=== PATIENT | female | born 1940 | race Caucasian/White ===

== ENCOUNTER 2018-04-23 11:07 | Observation (INO) ==
[~2018-04-23 11:07] MED LIST: DUONEB 0.5 MG/3 MG ONE
[2018-04-23] MEDS ORDERED: TUSSIONEX PENNKINETIC SUSP PO PRN (11:25)
[2018-04-23] MEDS ORDERED: DUONEB 0.5 MG/3 MG NEB ONE (11:45)
[2018-04-23 11:50] LABS: BASOPHILS % (AUTO) 0.4 % (0.2-1.0); EOSINOPHILS # (AUTO) 0.2 x10^3/uL (0.0-0.2); EOSINOPHILS % (AUTO) 3.2 % (0.9-2.9); HEMATOCRIT 31.5 % (36.0-47.0); HEMOGLOBIN 10.4 g/dL (12.0-16.0); LYMPHOCYTES # (AUTO) 1.8 X10^3/uL (1.3-2.9); LYMPHOCYTES % (AUTO) 31.5 % (21.0-51.0); MEAN CORPUSCULAR HEMOGLOBIN 27.2 pg (27.0-34.0); MEAN CORPUSCULAR HGB CONC 33.1 g/dL (33.0-35.0); MEAN CORPUSCULAR VOLUME 82.1 fL (80.0-100.0); MEAN PLATELET VOLUME 7.8 fL (7.4-11.0); MONOCYTES # (AUTO) 0.8 x10^3/uL (0.3-0.8); MONOCYTES % (AUTO) 13.1 % (0.0-13.0); NEUTROPHILS % (AUTO) 51.8 % (42.0-75.0); PLATELET COUNT 221 X10^3/uL (150.0-450.0); RED BLOOD COUNT 3.83 X10^6/uL (3.5-5.4); RED CELL DISTRIBUTION WIDTH 16.2 % (11.6-16.5); WHITE BLOOD COUNT 5.7 X10^3/uL (3.6-10.0)
[2018-04-23] MEDS ORDERED: PHARMACY CONSULT - DOSE _____ XX SCH (12:00)
[2018-04-23 12:04] LABS: ALANINE AMINOTRANSFERASE 42 Units/L (12-78); ALBUMIN 2.8 g/dL (3.4-5.0); ALKALINE PHOSPHATASE 140 Units/L (46-116); ASPARTATE AMINO TRANSFERASE 71 Units/L (15-37); BLOOD UREA NITROGEN 22 mg/dL (7-18); CALCIUM 8.5 mg/dL (8.5-10.1); CARBON DIOXIDE 28.8 mmol/L (21-32); CHLORIDE 106 mmol/L (98-107); COR CA(FOR HYPOALB) 9.5 mg/dL (8.5-10.1); CREATININE 1.22 mg/dL (0.55-1.02); SODIUM 144 mmol/L (136-145); TOTAL PROTEIN 6.9 g/dL (6.4-8.2); eGFR NON BLACK RACES 45 (>60)
[2018-04-23] MEDS: DUONEB 0.5 MG/3 MG NEB SCH ×3 (12:43→20:25)
--- NOTE | 2018-04-23 12:52 | RAD ---
History: Follow-up of pneumonia cough Study: PA and lateral chest Comparison: April 20 Findings: Previously described airspace disease in the right lower lobe has resolved. There is chronic interstitial change. There is mild cardiomegaly. There is no significant pleural effusion. Impression: Chronic mild cardiomegaly, no current evidence for acute or active cardiopulmonary disease Reported By:
[2018-04-23] MEDS ORDERED: NS 1/2 1000 ML IV 1,000 ML ONE (14:28)
[2018-04-23] MEDS: NS 1/2 1000 ML IV 1,000 ML IV SCH ×2 (14:31→14:32)
[2018-04-23] MEDS: ROBITUSSIN DM PO SCH ×3 (14:32→22:34)
[2018-04-23] MEDS: FORTAZ or TAZICEF VIAL INJ IVP SCH ×2 (14:32→22:33)
[2018-04-23] MEDS: LEVAQUIN PREMIX IV 500 MG 500 MG/100 ML BAG IV SCH (14:32)
[2018-04-23] MEDS ORDERED: POTASSIUM CHL 40 MEQ/NS 0.45% 500 ML IV PRN (19:35)
[2018-04-23] MEDS ORDERED: KLOR-CON PO PRN (19:35)
[2018-04-23] MEDS ORDERED: MICRO K EXTEN CAP 10 MEQ PO PRN (19:35)
[2018-04-23] MEDS ORDERED: POTASSIUM CHLORIDE LIQ 20 MEQ UDC PO PRN (19:35)
[2018-04-23] MEDS ORDERED: MAGNESIUM SULFATE 1 GRAM/100 mL PREMIX 1 GM/100 ML BAG IV PRN (19:35)
[2018-04-23] MEDS ORDERED: K-RIDER 10 MEQ/NS 100 ML 10 MEQ/100 ML BAG IV PRN (19:35)
[2018-04-23] MEDS ORDERED: POTASSIUM CHL 60 MEQ/NS 0.45% 500 ML IV PRN (19:35)
[2018-04-23] MEDS ORDERED: NYSTATIN POWDER TOP PRN (19:48)
[2018-04-23] MEDS: NYSTATIN POWDER TOP SCH (20:48)
[2018-04-23] MEDS: K-DUR TAB 20 MEQ PO PRN (20:48)
[2018-04-24] MEDS: DUONEB 0.5 MG/3 MG NEB SCH ×6 (00:19→21:04)
[2018-04-24] MEDS: NS 1/2 1000 ML IV 1,000 ML IV SCH ×2 (03:22→19:10)
[2018-04-24] MEDS ORDERED: NS 1/2 1000 ML IV 1,000 ML ONE ×2 (03:30→19:07)
[2018-04-24 06:13] LABS: BASOPHILS % (AUTO) 0.4 % (0.2-1.0); EOSINOPHILS # (AUTO) 0.1 x10^3/uL (0.0-0.2); EOSINOPHILS % (AUTO) 1.7 % (0.9-2.9); HEMATOCRIT 28.2 % (36.0-47.0); HEMOGLOBIN 9.4 g/dL (12.0-16.0); LYMPHOCYTES # (AUTO) 1.2 X10^3/uL (1.3-2.9); LYMPHOCYTES % (AUTO) 24.7 % (21.0-51.0); MEAN CORPUSCULAR HEMOGLOBIN 27.4 pg (27.0-34.0); MEAN CORPUSCULAR HGB CONC 33.1 g/dL (33.0-35.0); MEAN CORPUSCULAR VOLUME 82.6 fL (80.0-100.0); MONOCYTES # (AUTO) 0.7 x10^3/uL (0.3-0.8); NEUTROPHILS # (AUTO) 2.9 x10^3/uL (2.2-4.8); NEUTROPHILS % (AUTO) 59.2 % (42.0-75.0); PLATELET COUNT 201 X10^3/uL (150.0-450.0); RED BLOOD COUNT 3.42 X10^6/uL (3.5-5.4); RED CELL DISTRIBUTION WIDTH 15.6 % (11.6-16.5)
[2018-04-24 06:19] LABS: ALANINE AMINOTRANSFERASE 35 Units/L (12-78); ALBUMIN 2.4 g/dL (3.4-5.0); ALKALINE PHOSPHATASE 118 Units/L (46-116); ASPARTATE AMINO TRANSFERASE 53 Units/L (15-37); BLOOD UREA NITROGEN 15 mg/dL (7-18); CALCIUM 8.1 mg/dL (8.5-10.1); CARBON DIOXIDE 26.9 mmol/L (21-32); CHLORIDE 110 mmol/L (98-107); COR CA(FOR HYPOALB) 9.4 mg/dL (8.5-10.1); CREATININE 1.13 mg/dL (0.55-1.02); SODIUM 147 mmol/L (136-145); TOTAL PROTEIN 6.1 g/dL (6.4-8.2); eGFR NON BLACK RACES 49 (>60)
[2018-04-24] MEDS: K-DUR TAB 20 MEQ PO PRN (06:54)
--- NOTE | 2018-04-24 07:16 | RAD ---
HISTORY: Cough, follow-up pneumonia Study: Chest AP portable Comparison: 04/23/2018 Findings: The heart remains enlarged. No congestive heart failure is noted. No definite acute alveolar infiltrates are identified. No pleural effusions are identified. The bony thorax is unremarkable. IMPRESSION: Continued cardiomegaly but without congestive heart failure No definite infiltrates Reported By:
[2018-04-24] MEDS: LEVAQUIN PREMIX IV 500 MG 500 MG/100 ML BAG IV SCH (09:34)
[2018-04-24] MEDS: ROBITUSSIN DM PO SCH ×4 (09:34→21:30)
[2018-04-24] MEDS: FORTAZ or TAZICEF VIAL INJ IVP SCH ×2 (09:34→21:30)
[2018-04-24] MEDS: NYSTATIN POWDER TOP SCH ×2 (09:35→21:39)
[2018-04-24 12:05] LABS: BILIRUBIN,URINE NEGATIVE (NEGATIVE); BLOOD/HEMOGLOBIN,URINE NEGATIVE (NEGATIVE); GLUCOSE, URINE NEGATIVE (NEGATIVE); KETONES,URINE NEGATIVE (NEGATIVE); LEUKOCYTE ESTERASE ,URINE 2+ (NEGATIVE); NITRITES,URINE NEGATIVE (NEGATIVE); PROTEIN,URINE 2+ (NEGATIVE); UROBILINOGEN,URINE NORMAL (NORMAL)
[2018-04-24 12:10] LABS: APPEARANCE,URINE CLEAR (CLEAR); COLOR,URINE YELLOW (YELLOW); RBC,URINE NONE SEEN /HPF (NONE SEEN); SQUAMOUS EPITHELIAL CELL,UR FEW /HPF (NEGATIVE)
[2018-04-24 12:11] LABS: BACTERIA,URINE NEGATIVE /HPF (NEGATIVE); MUCUS,URINE FEW /HPF (NEGATIVE)
[2018-04-24] MEDS ORDERED: PSYLLIUM HUSK 0.52 GM PO SCH (12:15)
--- NOTE | 2018-04-24 13:53 | DR.H&P ---
H&P - History & Physical for Day of: H&P Date: 04/25/18 - Chief Complaint Chief Complaint: FEVER, PRODUCTIVE COUGH, CONGESTION, SHORTNESS OF BREATH - History of Present Illness History of Present Illness: IS A 78 YEAR OLD PATIENT OF OURS WHO IS A DIRECT ADMISSION FOR COMPLAINTS OF FEVER, PRODUCTIVE COUGH, CONGESTION, WHEEZING, AND SHORTNESS OF BREATH. CORRECTION STAFF REPORTED THAT A CHEST XRAY HAD BEEN OBTAINED ON 04/20/18 AND WAS CONSISTENT WITH RIGHT LUNG PNEUMONIA, HOWEVER, RESULTS WERE NOT REPORTED TO THEM UNTIL TODAY. LABS WERE ALSO OBTAINED ON 04/20/2018 AND REVEALED A WBC OF 15.1, POTASSIUM 3.3, BUN 19, CREATININE 1.40. ON ADMISSION TODAY, EXAMINATION REVEALED SCATTERED WHEEZING AND RHONCHI THROUGHOUT. VITALS WERE 98.9-66-18-92%RA-118/79. LABS WERE OBTAINED. ABNORMAL LAB VALUES INCLUDE THE FOLLOWING: HGB 10.4, HCT 31.5, POTASSIUM 3.4, BUN 22, CREATININE 1.22, AST 71, ALK PHOS 140, ALBUMIN 2.8. A CHEST XRAY WAS OBTAINED AND REVEALED: reviously described airspace disease in the right lower lobe has resolved. There is chronic interstitial change. There is mild cardiomegaly. There is no significant pleural effusion. A SPUTUM CULTURE AND BLOOD CULTURES ARE PENDING. SHE WAS STARTED ON LEVAQUIN 500MG IV DAILY, FORTAZ 1GM IV Q12H, RESPIRATORY TX, SUPPLEMENTAL OXYGEN, AND NS AT 75ML/HR. WE WILL FOLLOW UP WITH AM LABS AND CONTINUE TO MONITOR. - Past Medical History Past Medical History: Coronary Artery Disease, Hypertension, Dyslipidemia, Dementia, Depression, Hypothyroidism, GERD, Arthritis - Past Surgical History Surgical History: Ortho Surgery - Social History Does patient currently use any type of tobacco product: No Have you used tobacco products in the last 12 months: No Type of Tobacco Use: None Does any household member use tobacco: No Alcohol Use: None Drug Use: None - Medications Home Medications: propoxyphene [From Darvon] Allergy (Verified 10/31/17 11:09) CONTINUE taking the following medications aripiprazole 2.5 mg PO QDAY 04/23/18 [History] atorvastatin 10 mg PO BID 04/23/18 [History] benzonatate [Tessalon Perles] 200 mg PO TID 04/23/18 [History] docusate sodium [Colace] 100 mg PO BID 04/23/18 [History] donepezil [Aricept] 10 mg PO QHS 04/23/18 [History] pediatric [id number] [Multi-Vitamins with Iron] 1 tab PO DAILY 04/23/18 [History] polyethylene glycol 3350 [Miralax] 17 g PO BID 04/23/18 [History] psyllium husk [Metamucil] 0.52 g PO QHS 04/23/18 [History] risperidone [Risperdal] 0.25 mg PO BID 04/23/18 [History] sucralfate [Carafate] 2 g PO TID 04/23/18 [History] - Review of Systems Constitutional: See HPI, Fever, Weakness Eyes: No Symptoms Reported ENT: No Symptoms Reported Respiratory: See HPI, Cough, Shortness of Breath, SOB with Excertion, Sputum, Wheezing Cardiovascular: No Symptoms Reported Gastrointestinal: No Symptoms Reported Genitourinary: No Symptoms Reported Musculoskeletal: No Symptoms Reported Skin: Rash (REDNESS UNDER BREAST AND ABDOMINAL FOLDS ) Neurological: Weakness - Physical Exam Vital Signs: Temperature 98.8 F Pulse Rate [Bilateral Brachial 74 ] Pulse Rate [Right Brachial] 64 Pulse Rate 50 Respiratory Rate 20 Blood Pressure [Left Arm] 140/61 Blood Pressure [Left Arm] 118/79 Blood Pressure [Right Arm] 140/63 Blood Pressure 131/72 O2 Sat by Pulse Oximetry 93 Oriented: Person Eyes: Normal Ear: Normal Nose: Normal Throat: Normal Respiratory: Rhonchi Throughout, Wheezes Throughout Cardiovascular: Normal. negative: S3, S4, Murmur : Normal Auscultation: Bowel Sounds: Normal Palpation: Normal Tenderness: Normal Skin: Red (REDNESS UNDER BREAST AND ABDOMINAL FOLDS ) Musculoskeletal: Normal Psychiatric: Normal Mood Description: Calm Affect: Normal Speech Pattern: Clear - Assessment/Plan (1) Pneumonia Qualifiers: Pneumonia type: due to unspecified organism Laterality: right Lung location: unspecified part of lung Qualified Code(s): J18.9 - Pneumonia, unspecified organism Status: Acute Plan: IV ANTIBIOTICS, RESPIRATORY TX, SUPPLEMENTAL OXYGEN, CONTINUE TO MONITOR - Allergies Allergies/Adverse Reactions: Allergies Allergy/AdvReac Type Severity Reaction Status Date / Time propoxyphene [From Darvon] Allergy Verified 10/31/17 11:09
[2018-04-24] MEDS: DIFLUCAN 200 MG IV PREMIX* 200 MG/100 ML BAG IV SCH (15:18)
[2018-04-24] MEDS: TESSALON PERLES PO SCH ×2 (15:19→21:30)
[2018-04-24] MEDS: CARAFATE PO SCH ×2 (15:19→21:31)
[2018-04-24] MEDS: SYNTHROID 100 mcg TAB PO SCH (15:20)
[2018-04-24] MEDS: COLACE CAP 100 MG PO SCH ×2 (15:20→21:31)
[2018-04-24] MEDS: NORVASC TAB 10 MG PO SCH (15:20)
[2018-04-24] MEDS: MIRALAX POWDER (1 DOSE 17 G) PO SCH (15:21)
[2018-04-24] MEDS: ABILIFY PO SCH (15:31)
[2018-04-24] MEDS ORDERED: LEXAPRO PO SCH (21:00)
[2018-04-24] MEDS ORDERED: ARICEPT TAB 10 MG PO SCH (21:00)
--- NOTE | 2018-04-24 21:00 | PCM.PROG ---
Progress Note - Progress Note for Day of Date of Exam: 04/24/18 - Subjective Subjective: WAS ADMITTED FOR PNEUMONIA. TODAY, SHE IS ALERT, LYING IN BED ON MORNING ROUNDS. SHE CONTINUES WITH A PRODUCTIVE COUGH. ON EXAMINATION, HEART IS REGULAR IN RATE AND RHYTHM. BILATERAL LUNGS ARE NOTED WITH SCATTERED WHEEZING AND RHONCHI THROUGHOUT. ABDOMEN IS ROUND, SOFT, AND NON-TENDER WITH NORMAL BOWEL SOUNDS NOTED IN ALL QUADRANTS. SHE IS NOTED WITH REDNESS UNDER BREAST AND ABDOMINAL FOLDS. HER VITALS THIS MORNING ARE 98.7-64-18-96%-130/60. LABS WERE OBTAINED. ABNORMAL LAB VALUES INCLUDE THE FOLLOWING: RBC 3.42, HGB 9.4, HCT 28.2, SODIUM 147, CHLORIDE 110, CREATININE 1.13, CALCIUM 8.1, AST 53, ALK PHOS 118, TOTAL PROTEIN 6.1, ALBUMIN 2.4. URINALYSIS REVEALED WBC 3-5, LEUKOCYTES 2+, BACTERIA NEGATIVE. A CHEST XRAY WAS OBTAINED TODAY AND REVEALED: Continued cardiomegaly but without congestive heart failure. No definite infiltrates. SHE IS CURRENTLY RECEIVING IV FORTAZ AND LEVAQUIN. TODAY, WE WILL ADD DIFLUCAN 200MG IV DAILY. OTHERWISE, WE WILL CONTINUE WITH CURRENT PLAN OF CARE. WE PLAN TO FOLLOW UP WITH AM LABS AND CONTINUE TO MONITOR. - Past Medical Family Social History Past Med/Fam/Surg Hx: No changes since H&P Allergies: Allergies propoxyphene [From Darvon] Allergy (Verified 10/31/17 11:09) - Review of Systems ROS: No change since H&P - Vital Signs and I&O's Vital Signs: Temperature 99.3 F Pulse Rate [Bilateral Brachial 74 ] Pulse Rate [Right Brachial] 85 Pulse Rate 54 Respiratory Rate 20 Blood Pressure [Left Arm] 110/53 Blood Pressure [Left Arm] 118/79 Blood Pressure [Right Arm] 140/63 Blood Pressure 131/72 O2 Sat by Pulse Oximetry 92 Intake and Output: Intake & Output 04/22/18 04/23/18 04/24/18 04/25/18 11:59 11:59 11:59 11:59 Intake Total 1660 / 1660 700 / 700 Balance 1660 / 1660 700 / 700 - Physical Exam Oriented: Person Eyes: Normal Ear: Normal Nose: Normal Throat: Normal Respiratory: Generalized, Wheezes, Rhonchi Cardiovascular: Normal. negative: S3, S4, Murmur : Normal Auscultation: Bowel Sounds: Normal Palpation: Normal Tenderness: Normal Skin: Red (REDNESS UNDER BREAST AND ABDOMINAL FOLDS ) Musculoskeletal: Normal Psychiatric: Normal Mood Description: Calm Affect: Normal Speech Pattern: Clear - Laboratory and Diagnostics Result Diagrams: 04/24/18 05:14 04/24/18 05:14 Labs: 04/23/18 12:45 Sputum - Expectorated Sputum Sputum Culture - Preliminary 04/23/18 12:45 Sputum - Expectorated Sputum - Final Laboratory WBC 5.0 X10^3/uL (3.6-10.0) 04/24/18 05:14 RBC 3.42 X10^6/uL (3.5-5.4) L 04/24/18 05:14 Hgb 9.4 g/dL (12.0-16.0) L 04/24/18 05:14 Hct 28.2 % (36.0-47.0) L 04/24/18 05:14 MCV 82.6 fL (80.0-100.0) 04/24/18 05:14 MCH 27.4 pg (27.0-34.0) 04/24/18 05:14 MCHC 33.1 g/dL (33.0-35.0) 04/24/18 05:14 RDW 15.6 % (11.6-16.5) 04/24/18 05:14 Plt Count 201 X10^3/uL (150.0-450.0) 04/24/18 05:14 MPV 8.0 fL (7.4-11.0) 04/24/18 05:14 Neut % (Auto) 59.2 % (42.0-75.0) 04/24/18 05:14 Lymph % (Auto) 24.7 % (21.0-51.0) 04/24/18 05:14 [place] % (Auto) 14.0 % (0.0-13.0) H 04/24/18 05:14 Eos % (Auto) 1.7 % (0.9-2.9) 04/24/18 05:14 Baso % (Auto) 0.4 % (0.2-1.0) 04/24/18 05:14 Neut # (Auto) 2.9 x10^3/uL (2.2-4.8) 04/24/18 05:14 Lymph # (Auto) 1.2 X10^3/uL (1.3-2.9) L 04/24/18 05:14 [place] # (Auto) 0.7 x10^3/uL (0.3-0.8) 04/24/18 05:14 Eos # (Auto) 0.1 x10^3/uL (0.0-0.2) 04/24/18 05:14 Baso # (Auto) 0.0 X10^3/uL (0.0-0.1) 04/24/18 05:14 Absolute Nucleated RBC 0.1 /100WBC 04/24/18 05:14 Sodium 147 mmol/L (136-145) H 04/24/18 05:14 Corrected Sodium TNP 04/24/18 05:14 Potassium 3.5 mmol/L (3.5-5.1) 04/24/18 05:14 Chloride 110 mmol/L (98-107) H 04/24/18 05:14 Carbon Dioxide 26.9 mmol/L (21-32) 04/24/18 05:14 BUN 15 mg/dL (7-18) 04/24/18 05:14 Creatinine 1.13 mg/dL (0.55-1.02) H 04/24/18 05:14 Est GFR (MDRD) Af Amer 60 (>60) 04/24/18 05:14 Est GFR (MDRD) Non-Af 49 (>60) L 04/24/18 05:14 Glucose 96 mg/dL (65-99) 04/24/18 05:14 Calcium 8.1 mg/dL (8.5-10.1) L 04/24/18 05:14 Corrected Calcium 9.4 mg/dL (8.5-10.1) 04/24/18 05:14 Magnesium 2.1 mg/dL (1.7-2.9) 04/23/18 11:31 Total Bilirubin 0.70 mg/dL (0.2-1.0) 04/24/18 05:14 AST 53 Units/L (15-37) H 04/24/18 05:14 ALT 35 Units/L (12-78) 04/24/18 05:14 Alkaline Phosphatase 118 Units/L (46-116) H 04/24/18 05:14 Total Protein 6.1 g/dL (6.4-8.2) L 04/24/18 05:14 Albumin 2.4 g/dL (3.4-5.0) L 04/24/18 05:14 Globulin 3.7 g/dL (2.5-4.5) 04/24/18 05:14 Albumin/Globulin Ratio 0.6 Ratio (1.1-2.1) L 04/24/18 05:14 Specimen Type Clean catch urine 04/24/18 11:50 Urine Color Yellow (YELLOW) 04/24/18 11:50 Urine Appearance Clear (CLEAR) 04/24/18 11:50 Urine pH 6.0 (5.0 - 8.0) 04/24/18 11:50 Ur Specific [place] 1.020 (1.000-1.030) 04/24/18 11:50 Urine Protein 2+ (NEGATIVE) 04/24/18 11:50 Urine Glucose (UA) Negative (NEGATIVE) 04/24/18 11:50 Urine Ketones Negative (NEGATIVE) 04/24/18 11:50 Urine Occult Blood Negative (NEGATIVE) 04/24/18 11:50 Urine Nitrite Negative (NEGATIVE) 04/24/18 11:50 Urine Bilirubin Negative (NEGATIVE) 04/24/18 11:50 Urine Urobilinogen Normal (NORMAL) 04/24/18 11:50 Ur Leukocyte Esterase 2+ (NEGATIVE) 04/24/18 11:50 Urine RBC None seen /HPF (NONE SEEN) 04/24/18 11:50 Urine WBC 3-5 /HPF (NONE SEEN) 04/24/18 11:50 Ur Squamous Epith Cells Few /HPF (NEGATIVE) 04/24/18 11:50 Urine Bacteria Negative /HPF (NEGATIVE) 04/24/18 11:50 Urine Mucus Few /HPF (NEGATIVE) 04/24/18 11:50 Ur Culture Indicated? No/not indicated 04/24/18 11:50 - Plan (1) Pneumonia Status: Acute Qualifiers: Pneumonia type: due to unspecified organism Laterality: right Lung location: unspecified part of lung Qualified Code(s): J18.9 - Pneumonia, unspecified organism Plan: IV ANTIBIOTICS, RESPIRATORY TX, SUPPLEMENTAL OXYGEN, CONTINUE TO MONITOR
[2018-04-24] MEDS ORDERED: LEXAPRO ONE (21:12)
[2018-04-24] MEDS: ZANTAC PO SCH (21:31)
[2018-04-24] MEDS: LIPITOR TAB 10 MG PO SCH (21:31)
[2018-04-24] MEDS: VASOTEC TAB 20 MG PO SCH (21:32)
[2018-04-25] MEDS: DUONEB 0.5 MG/3 MG NEB SCH ×4 (01:22→12:11)
[2018-04-25] MEDS ORDERED: NS 1/2 1000 ML IV 1,000 ML ONE (04:54)
[2018-04-25] MEDS: NS 1/2 1000 ML IV 1,000 ML IV SCH (05:07)
[2018-04-25] MEDS: CARAFATE PO SCH (05:17)
[2018-04-25] MEDS: TESSALON PERLES PO SCH (05:17)
[2018-04-25 06:08] LABS: BASOPHILS % (AUTO) 0.6 % (0.2-1.0); EOSINOPHILS # (AUTO) 0.2 x10^3/uL (0.0-0.2); EOSINOPHILS % (AUTO) 4.4 % (0.9-2.9); HEMATOCRIT 30.6 % (36.0-47.0); HEMOGLOBIN 10.2 g/dL (12.0-16.0); LYMPHOCYTES # (AUTO) 1.6 X10^3/uL (1.3-2.9); LYMPHOCYTES % (AUTO) 29.9 % (21.0-51.0); MEAN CORPUSCULAR HEMOGLOBIN 27.5 pg (27.0-34.0); MEAN CORPUSCULAR HGB CONC 33.3 g/dL (33.0-35.0); MEAN CORPUSCULAR VOLUME 82.6 fL (80.0-100.0); MEAN PLATELET VOLUME 7.8 fL (7.4-11.0); MONOCYTES # (AUTO) 0.7 x10^3/uL (0.3-0.8); MONOCYTES % (AUTO) 12.8 % (0.0-13.0); NEUTROPHILS # (AUTO) 2.8 x10^3/uL (2.2-4.8); NEUTROPHILS % (AUTO) 52.3 % (42.0-75.0); PLATELET COUNT 231 X10^3/uL (150.0-450.0); RED CELL DISTRIBUTION WIDTH 16.1 % (11.6-16.5); WHITE BLOOD COUNT 5.3 X10^3/uL (3.6-10.0)
--- NOTE | 2018-04-25 06:18 | RAD ---
HISTORY: Cough, follow-up pneumonia Study: Chest AP portable Comparison: 04/24/2018 Findings: The heart is enlarged. No congestive heart failure is noted. No acute alveolar infiltrates or pleural effusions are identified. The bony thorax is unremarkable. IMPRESSION: Continued cardiomegaly without congestive heart failure No definite infiltrates identified Reported By:
[2018-04-25 06:33] LABS: ALANINE AMINOTRANSFERASE 33 Units/L (12-78); ALBUMIN 2.7 g/dL (3.4-5.0); ALKALINE PHOSPHATASE 131 Units/L (46-116); ASPARTATE AMINO TRANSFERASE 45 Units/L (15-37); BLOOD UREA NITROGEN 13 mg/dL (7-18); CALCIUM 8.4 mg/dL (8.5-10.1); CARBON DIOXIDE 24.9 mmol/L (21-32); CHLORIDE 109 mmol/L (98-107); COR CA(FOR HYPOALB) 9.4 mg/dL (8.5-10.1); CREATININE 1.09 mg/dL (0.55-1.02); SODIUM 144 mmol/L (136-145); TOTAL PROTEIN 6.6 g/dL (6.4-8.2); eGFR NON BLACK RACES 52 (>60)
[2018-04-25] MEDS ORDERED: TAB-A-VITE PO SCH (09:00)
[2018-04-25] MEDS: ABILIFY PO SCH (09:40)
[2018-04-25] MEDS: ROBITUSSIN DM PO SCH (09:41)
[2018-04-25] MEDS: COLACE CAP 100 MG PO SCH (09:41)
[2018-04-25] MEDS: VASOTEC TAB 20 MG PO SCH (09:41)
[2018-04-25] MEDS: LIPITOR TAB 10 MG PO SCH (09:41)
[2018-04-25] MEDS: ZANTAC PO SCH (09:42)
[2018-04-25] MEDS: NORVASC TAB 10 MG PO SCH (09:42)
[2018-04-25] MEDS: SYNTHROID 100 mcg TAB PO SCH (09:42)
[2018-04-25] MEDS: MIRALAX POWDER (1 DOSE 17 G) PO SCH (09:43)
[2018-04-25] MEDS: LEVAQUIN PREMIX IV 500 MG 500 MG/100 ML BAG IV SCH (09:44)
[2018-04-25] MEDS: FORTAZ or TAZICEF VIAL INJ IVP SCH (09:48)
[2018-04-25] MEDS: NYSTATIN POWDER TOP SCH (09:59)
[2018-04-25] MEDS: DIFLUCAN 200 MG IV PREMIX* 200 MG/100 ML BAG IV SCH (11:36)
[2018-04-25 13:52] VITALS: BP 157/66
== END 2018-04-25 13:31 ==
LOC: OBS → MED/SURG 11:07
PROVIDERS: ADMIT Internal Medicine; ATTEND Internal Medicine
DX: I51.7 Cardiomegaly; J18.8 Other pneumonia, unspecified organism; R06.02 Shortness of breath; R26.89 Other abnormalities of gait and mobility; R50.9 Fever, unspecified
CPT/HCPCS: 36415; 71010; 71020; 71045; 71046; 80053; 81001; 83735; 85025; 87040; 87070; 87086; 87205; 92610; 94640; 94669; 94760; 96367; 96374; 97162; 97166; 97535; A4222; G0378; J0400; J0713; J1450; J1956; J7620

== ENCOUNTER 2018-09-11 18:16 | Inpatient (IN) ==
[2018-09-11] MEDS ORDERED: TUSSIONEX PENNKINETIC SUSP PO PRN (20:46)
[2018-09-11] MEDS ORDERED: FORTAZ or TAZICEF VIAL INJ IVP SCH (20:46)
[2018-09-11] MEDS ORDERED: LEVAQUIN PREMIX IV 500 MG 500 MG/100 ML BAG IV ONE (20:46)
[2018-09-11] MEDS: DUONEB 0.5 MG/3 MG NEB SCH (21:10)
[2018-09-11 21:12] LABS: BASOPHILS % (AUTO) 0.4 % (0.2-1.0); EOSINOPHILS # (AUTO) 0.2 x10^3/uL (0.0-0.2); EOSINOPHILS % (AUTO) 3.2 % (0.9-2.9); HEMATOCRIT 34.1 % (36.0-47.0); HEMOGLOBIN 11.3 g/dL (12.0-16.0); LYMPHOCYTES # (AUTO) 1.4 X10^3/uL (1.3-2.9); LYMPHOCYTES % (AUTO) 27.9 % (21.0-51.0); MEAN CORPUSCULAR HEMOGLOBIN 25.9 pg (27.0-34.0); MEAN CORPUSCULAR HGB CONC 33.2 g/dL (33.0-35.0); MEAN CORPUSCULAR VOLUME 78.3 fL (80.0-100.0); MEAN PLATELET VOLUME 7.6 fL (7.4-11.0); MONOCYTES # (AUTO) 0.9 x10^3/uL (0.3-0.8); MONOCYTES % (AUTO) 17.6 % (0.0-13.0); NEUTROPHILS # (AUTO) 2.6 x10^3/uL (2.2-4.8); NEUTROPHILS % (AUTO) 50.9 % (42.0-75.0); PLATELET COUNT 167 X10^3/uL (150.0-450.0); RED BLOOD COUNT 4.36 X10^6/uL (3.5-5.4); WHITE BLOOD COUNT 5.2 X10^3/uL (3.6-10.0)
[2018-09-11 21:16] LABS: PLATELET MORPHOLOGY COMMENT NORMAL (NORMAL)
[2018-09-11 21:17] LABS: HYPOCHROMASIA SLIGHT
[2018-09-11 21:28] LABS: ALANINE AMINOTRANSFERASE 68 Units/L (12-78); ALBUMIN 2.7 g/dL (3.4-5.0); ALKALINE PHOSPHATASE 218 Units/L (46-116); ASPARTATE AMINO TRANSFERASE 34 Units/L (15-37); BLOOD UREA NITROGEN 38 mg/dL (7-18); CALCIUM 8.1 mg/dL (8.5-10.1); CARBON DIOXIDE 27.8 mmol/L (21-32); CHLORIDE 108 mmol/L (98-107); COR CA(FOR HYPOALB) 9.1 mg/dL (8.5-10.1); CREATININE 1.38 mg/dL (0.55-1.02); SODIUM 145 mmol/L (136-145); TOTAL PROTEIN 6.9 g/dL (6.4-8.2); eGFR NON BLACK RACES 39 (>60)
[2018-09-11] MEDS ORDERED: NS 1/2 1000 ML IV 1,000 ML ONE (21:29)
[2018-09-11] MEDS: NS 1/2 1000 ML IV 1,000 ML IV SCH (21:32)
[2018-09-11] MEDS: ROBITUSSIN DM PO SCH (21:32)
[2018-09-11] MEDS: VSL#3 PO SCH (21:32)
[2018-09-11] MEDS ORDERED: MAGNESIUM SULFATE 1 GRAM/100 mL PREMIX 1 GM/100 ML BAG IV PRN (22:18)
[2018-09-11] MEDS ORDERED: K-RIDER 10 MEQ/NS 100 ML 10 MEQ/100 ML BAG IV PRN (22:18)
[2018-09-11] MEDS ORDERED: MICRO K EXTEN CAP 10 MEQ PO PRN (22:18)
[2018-09-11] MEDS ORDERED: POTASSIUM CHL 40 MEQ/NS 0.45% 500 ML IV PRN (22:18)
[2018-09-11] MEDS ORDERED: POTASSIUM CHL 60 MEQ/NS 0.45% 500 ML IV PRN (22:18)
[2018-09-11] MEDS ORDERED: POTASSIUM CHLORIDE LIQ 20 MEQ UDC PO PRN (22:18)
[2018-09-11] MEDS ORDERED: KLOR-CON PO PRN (22:18)
[2018-09-11] MEDS: K-DUR TAB 20 MEQ PO PRN (22:50)
[2018-09-12] MEDS: DUONEB 0.5 MG/3 MG NEB SCH ×6 (01:00→20:30)
[2018-09-12] MEDS ORDERED: NS 1/2 1000 ML IV 1,000 ML ONE ×2 (04:40→20:45)
[2018-09-12] MEDS: NS 1/2 1000 ML IV 1,000 ML IV SCH ×2 (05:10→22:04)
[2018-09-12 05:27] LABS: BASOPHILS % (AUTO) 0.3 % (0.2-1.0); EOSINOPHILS # (AUTO) 0.1 x10^3/uL (0.0-0.2); EOSINOPHILS % (AUTO) 3.3 % (0.9-2.9); HEMATOCRIT 33.4 % (36.0-47.0); LYMPHOCYTES # (AUTO) 1.1 X10^3/uL (1.3-2.9); MEAN CORPUSCULAR HEMOGLOBIN 25.9 pg (27.0-34.0); MEAN CORPUSCULAR HGB CONC 33.1 g/dL (33.0-35.0); MEAN CORPUSCULAR VOLUME 78.2 fL (80.0-100.0); MEAN PLATELET VOLUME 8.2 fL (7.4-11.0); MONOCYTES # (AUTO) 0.6 x10^3/uL (0.3-0.8); MONOCYTES % (AUTO) 17.1 % (0.0-13.0); NEUTROPHILS # (AUTO) 1.9 x10^3/uL (2.2-4.8); NEUTROPHILS % (AUTO) 50.3 % (42.0-75.0); PLATELET COUNT 148 X10^3/uL (150.0-450.0); RED BLOOD COUNT 4.26 X10^6/uL (3.5-5.4); RED CELL DISTRIBUTION WIDTH 19.8 % (11.6-16.5); WHITE BLOOD COUNT 3.8 X10^3/uL (3.6-10.0)
[2018-09-12 05:33] LABS: ALANINE AMINOTRANSFERASE 60 Units/L (12-78); ALBUMIN 2.6 g/dL (3.4-5.0); ALKALINE PHOSPHATASE 199 Units/L (46-116); ASPARTATE AMINO TRANSFERASE 32 Units/L (15-37); BLOOD UREA NITROGEN 29 mg/dL (7-18); CALCIUM 7.8 mg/dL (8.5-10.1); CARBON DIOXIDE 28.1 mmol/L (21-32); CHLORIDE 109 mmol/L (98-107); COR CA(FOR HYPOALB) 8.9 mg/dL (8.5-10.1); CREATININE 1.11 mg/dL (0.55-1.02); SODIUM 145 mmol/L (136-145); TOTAL PROTEIN 6.7 g/dL (6.4-8.2); eGFR NON BLACK RACES 51 (>60)
[2018-09-12 05:56] LABS: ANISOCYTOSIS SLIGHT; HYPOCHROMASIA SLIGHT; PLATELET MORPHOLOGY COMMENT NORMAL (NORMAL)
--- NOTE | 2018-09-12 06:13 | RAD ---
HISTORY: Follow-up pneumonia Study: Chest AP portable Comparison: 09/11/2018 Findings: The heart is enlarged. No congestive heart failure is noted. The lungs are well inflated. No acute alveolar infiltrates are identified. No pleural effusions are noted. The bony thorax is unremarkable. IMPRESSION: Continued cardiomegaly without congestive heart failure Lungs now clear Reported By:
[2018-09-12] MEDS ORDERED: KENALOG CREAM ONE (08:45)
[2018-09-12] MEDS: VSL#3 PO SCH (08:47)
[2018-09-12] MEDS: FORTAZ or TAZICEF VIAL INJ IVP SCH ×2 (08:47→22:01)
[2018-09-12] MEDS: ROBITUSSIN DM PO SCH ×4 (08:47→21:58)
[2018-09-12] MEDS ORDERED: PHARMACY CONSULT - DOSE _____ XX SCH (09:00)
[2018-09-12] MEDS ORDERED: NYSTATIN POWDER ONE (11:26)
[2018-09-12] MEDS: NYSTATIN POWDER TOP SCH ×2 (11:40→22:02)
[2018-09-12 13:02] VITALS: BMI 40.4
[2018-09-12] MEDS: LOVENOX INJ 40 MG SYR SC SCH (14:37)
[2018-09-12] MEDS ORDERED: LEVOTHYROXINE SODIUM 125 MCG PO SCH (20:15)
[2018-09-12] MEDS ORDERED: LEXAPRO ONE (20:44)
[2018-09-12] MEDS ORDERED: RANITIDINE HCL 150 MG PO SCH (21:00)
[2018-09-12] MEDS ORDERED: PATIENT'S HOME MEDICATION (Escitalopram Oxalate [Lexapro] 20 MG) PO SCH (21:00)
[2018-09-12] MEDS ORDERED: KENALOG CREAM TOP SCH (21:00)
[2018-09-12] MEDS ORDERED: ENALAPRIL MALEATE 20 MG PO SCH (21:00)
[2018-09-12] MEDS: LIPITOR TAB 10 MG PO SCH (21:56)
[2018-09-12] MEDS: LEXAPRO PO SCH (21:57)
[2018-09-12] MEDS: COLACE CAP 100 MG PO SCH (21:57)
[2018-09-12] MEDS: ARICEPT TAB 10 MG PO SCH (21:58)
[2018-09-12] MEDS: LASIX PO SCH (21:58)
[2018-09-12] MEDS: ZANTAC PO SCH (21:58)
[2018-09-12] MEDS: CARAFATE PO SCH (21:59)
[2018-09-12] MEDS: VASOTEC TAB 20 MG PO SCH (22:00)
[2018-09-12] MEDS: LEVAQUIN PREMIX IV 500 MG 500 MG/100 ML BAG IV SCH (22:09)
[2018-09-12] MEDS: ABILIFY PO SCH (23:42)
[2018-09-13] MEDS: DUONEB 0.5 MG/3 MG NEB SCH ×6 (00:59→20:35)
[2018-09-13 05:15] LABS: BASOPHILS % (AUTO) 0.4 % (0.2-1.0); EOSINOPHILS # (AUTO) 0.1 x10^3/uL (0.0-0.2); EOSINOPHILS % (AUTO) 3.5 % (0.9-2.9); HEMATOCRIT 32.9 % (36.0-47.0); HEMOGLOBIN 10.8 g/dL (12.0-16.0); LYMPHOCYTES # (AUTO) 1.1 X10^3/uL (1.3-2.9); LYMPHOCYTES % (AUTO) 36.9 % (21.0-51.0); MEAN CORPUSCULAR HEMOGLOBIN 25.8 pg (27.0-34.0); MEAN CORPUSCULAR HGB CONC 32.8 g/dL (33.0-35.0); MEAN CORPUSCULAR VOLUME 78.6 fL (80.0-100.0); MEAN PLATELET VOLUME 7.9 fL (7.4-11.0); MONOCYTES # (AUTO) 0.5 x10^3/uL (0.3-0.8); MONOCYTES % (AUTO) 17.4 % (0.0-13.0); NEUTROPHILS # (AUTO) 1.3 x10^3/uL (2.2-4.8); NEUTROPHILS % (AUTO) 41.8 % (42.0-75.0); PLATELET COUNT 144 X10^3/uL (150.0-450.0); RED BLOOD COUNT 4.19 X10^6/uL (3.5-5.4); RED CELL DISTRIBUTION WIDTH 19.6 % (11.6-16.5)
[2018-09-13 05:27] LABS: ANISOCYTOSIS SLIGHT; HYPOCHROMASIA SLIGHT; PLATELET MORPHOLOGY COMMENT NORMAL (NORMAL)
[2018-09-13 05:35] LABS: ALANINE AMINOTRANSFERASE 53 Units/L (12-78); ALBUMIN 2.6 g/dL (3.4-5.0); ALKALINE PHOSPHATASE 186 Units/L (46-116); ASPARTATE AMINO TRANSFERASE 32 Units/L (15-37); BLOOD UREA NITROGEN 16 mg/dL (7-18); CALCIUM 7.8 mg/dL (8.5-10.1); CARBON DIOXIDE 27.2 mmol/L (21-32); CHLORIDE 111 mmol/L (98-107); COR CA(FOR HYPOALB) 8.9 mg/dL (8.5-10.1); CREATININE 0.97 mg/dL (0.55-1.02); SODIUM 146 mmol/L (136-145); TOTAL PROTEIN 6.6 g/dL (6.4-8.2); eGFR NON BLACK RACES 59 (>60)
[2018-09-13] MEDS: CARAFATE PO SCH ×3 (05:43→22:02)
[2018-09-13] MEDS: K-DUR TAB 20 MEQ PO PRN (05:46)
--- NOTE | 2018-09-13 06:58 | RAD ---
HISTORY: Shortness of breath Study: Chest AP portable Comparison: 09/12/2018 Findings: The heart remains enlarged. No congestive heart failure is noted. No acute alveolar infiltrates or pleural effusions are identified. The bony thorax is unremarkable. IMPRESSION: Continued cardiomegaly without congestive heart failure No infiltrates Reported By:
[2018-09-13] MEDS ORDERED: [UNRECOGNIZED DRUG - MIXTURE] PO SCH (09:00)
[2018-09-13] MEDS ORDERED: AMLODIPINE BESYLATE 10 MG PO SCH (09:00)
[2018-09-13] MEDS: NORVASC TAB 10 MG PO SCH (09:44)
[2018-09-13] MEDS: FORTAZ or TAZICEF VIAL INJ IVP SCH ×2 (09:44→22:04)
[2018-09-13] MEDS: LEVAQUIN PREMIX IV 500 MG 500 MG/100 ML BAG IV SCH (09:44)
[2018-09-13] MEDS: COLACE CAP 100 MG PO SCH ×2 (09:45→22:02)
[2018-09-13] MEDS: LASIX PO SCH ×2 (09:45→22:02)
[2018-09-13] MEDS: TAB-A-VITE PO SCH (09:45)
[2018-09-13] MEDS: VSL#3 PO SCH (09:45)
[2018-09-13] MEDS: ZANTAC PO SCH ×2 (09:45→22:02)
[2018-09-13] MEDS: ROBITUSSIN DM PO SCH ×4 (09:47→22:04)
[2018-09-13] MEDS: NYSTATIN POWDER TOP SCH ×2 (09:47→22:04)
[2018-09-13] MEDS: VASOTEC TAB 20 MG PO SCH ×2 (09:47→22:03)
[2018-09-13] MEDS: LOVENOX INJ 40 MG SYR SC SCH (09:49)
[2018-09-13] MEDS: ABILIFY PO SCH ×3 (09:53→22:00)
[2018-09-13] MEDS: SYNTHROID 125 mcg TAB PO SCH (09:53)
[2018-09-13] MEDS: NS 1/2 1000 ML IV 1,000 ML IV SCH ×4 (09:53→22:05)
[2018-09-13] MEDS: EUCERIN TOP PRN ×2 (13:00→22:09)
--- NOTE | 2018-09-13 18:43 | DR.H&P ---
H&P - History & Physical for Day of: H&P Date: 09/11/18 - Chief Complaint Chief Complaint: COUGH, FEVER, SOB - History of Present Illness History of Present Illness: IS A 78 YEAR OLD PATIENT OF OURS WHO IS A RESIDENT OF [facility]. SHE PRESENTED TO THE HOSPITAL A DIRECT ADMISSION WITH ASSISTED STAFF REPORTING THAT PATIENT HAS HAD COUGH AND FEVER SINCE ONE DAY PRIOR. PATIENT REPORTS, I DONT FEEL GOOD, MY HEAD HURTS. MEDICAL HISTORY INCLUDES DEMENTIA, ALZHEIMERS, HTN, GERD, MUSCLE WEAKNESS, HYPOTHYROIDISM, AND DEPRESSION. ON ARRIVAL, VITALS WERE 99.5-47-18-92%-133/60. LABS WERE OBTAINED. ABNORMAL LAB VALUES INCLUDE THE FOLLOWING: HGB 11.3, HCT 34.1, CHLORIDE 108, BUN 38, CREATININE 1.38, CALCIUM 8.1, ALK PHOS 218, ALBUMIN 2.7. BLOOD AND SPUTUM CULTURES PENDING. A CHEST XRAY WAS OBTAINED AND REVEALED: Continued cardiomegaly without congestive heart failure. Lungs now clear. SHE WAS STARTED ON NS AT KVO, IV FORTAZ, IV LEVAQUIN, RESPIRATORY TREATMENTS, SUPPEMENTAL OXYGEN, AND THE POTASSIUM PROTOCOL. WE WILL FOLLOW UP WITH AM LABS AND CHEST XRAY AND CONTINUE TO MONITOR. - Past Medical History Past Medical History: Coronary Artery Disease, Hypertension, Dyslipidemia, Dementia, Depression, Hypothyroidism, GERD, Arthritis - Past Surgical History Surgical History: Ortho Surgery - Social History Does patient currently use any type of tobacco product: No Have you used tobacco products in the last 12 months: No Type of Tobacco Use: None Does any household member use tobacco: No Alcohol Use: None Drug Use: Prescription Drugs - Medications Home Medications: propoxyphene [From Darvon] Allergy (Verified 07/10/18 20:41) CONTINUE taking the following medications RX: aripiprazole 5 mg PO QHS 09/11/18 [History] RX: miscellaneous medical supply 09/11/18 [History] RX: nystatin 1 applic TOPICAL BID 09/11/18 [History] RX: triamcinolone acetonide 1 applic TOPICAL BID 09/11/18 [History] - Review of Systems Constitutional: Fever, Weakness, Malaise Eyes: No Symptoms Reported ENT: No Symptoms Reported Respiratory: See HPI, Cough, Shortness of Breath Cardiovascular: No Symptoms Reported Gastrointestinal: No Symptoms Reported Genitourinary: No Symptoms Reported Musculoskeletal: No Symptoms Reported Skin: No Symptoms Reported Neurological: Weakness - Physical Exam Vital Signs: Temperature 98.9 F Pulse Rate [Brachial] 57 Pulse Rate 48 Respiratory Rate 18 Blood Pressure [Left Arm] 150/67 Blood Pressure [Left Arm] 118/79 Blood Pressure [Right Arm] 125/56 Blood Pressure 150/67 O2 Sat by Pulse Oximetry 97 Oriented: Not Oriented Eyes: Normal Ear: Normal Nose: Normal Throat: Normal Respiratory: Wheezes Throughout Cardiovascular: Normal : Normal Auscultation: Bowel Sounds: Normal Palpation: Normal Tenderness: Normal Skin: Normal Musculoskeletal: Normal Psychiatric: Normal Mood Description: Calm Affect: Normal Speech Pattern: Inappropriate - Assessment/Plan (1) Bronchopneumonia Status: Acute Plan: IV FLUIDS, IV ANTIBIOTICS, RESPIRATORY TREATMENTS, SUPPLEMENTAL OXYGEN, CONTINUE TO MONITOR - Allergies Allergies/Adverse Reactions: Allergies Allergy/AdvReac Type Severity Reaction Status Date / Time propoxyphene [From Darvon] Allergy Verified 07/10/18 20:41
[2018-09-13] MEDS ORDERED: LEXAPRO ONE (21:06)
[2018-09-13] MEDS ORDERED: NS 1/2 1000 ML IV 1,000 ML ONE (21:09)
[2018-09-13] MEDS: LIPITOR TAB 10 MG PO SCH (22:00)
[2018-09-13] MEDS: LEXAPRO PO SCH (22:00)
[2018-09-13] MEDS: ARICEPT TAB 10 MG PO SCH (22:01)
[2018-09-14] MEDS: DUONEB 0.5 MG/3 MG NEB SCH ×6 (01:04→21:10)
[2018-09-14] MEDS: CARAFATE PO SCH ×3 (05:36→22:26)
[2018-09-14 05:43] LABS: ALANINE AMINOTRANSFERASE 47 Units/L (12-78); ALBUMIN 2.8 g/dL (3.4-5.0); ALKALINE PHOSPHATASE 192 Units/L (46-116); ASPARTATE AMINO TRANSFERASE 28 Units/L (15-37); BASOPHILS % (AUTO) 0.4 % (0.2-1.0); BLOOD UREA NITROGEN 14 mg/dL (7-18); CALCIUM 8.1 mg/dL (8.5-10.1); CHLORIDE 107 mmol/L (98-107); COR CA(FOR HYPOALB) 9.1 mg/dL (8.5-10.1); CREATININE 0.97 mg/dL (0.55-1.02); EOSINOPHILS # (AUTO) 0.1 x10^3/uL (0.0-0.2); HEMATOCRIT 33.1 % (36.0-47.0); LYMPHOCYTES # (AUTO) 1.2 X10^3/uL (1.3-2.9); LYMPHOCYTES % (AUTO) 33.2 % (21.0-51.0); MEAN CORPUSCULAR HEMOGLOBIN 25.9 pg (27.0-34.0); MEAN CORPUSCULAR HGB CONC 33.2 g/dL (33.0-35.0); MEAN CORPUSCULAR VOLUME 78.1 fL (80.0-100.0); MEAN PLATELET VOLUME 7.4 fL (7.4-11.0); MONOCYTES # (AUTO) 0.6 x10^3/uL (0.3-0.8); MONOCYTES % (AUTO) 16.1 % (0.0-13.0); NEUTROPHILS # (AUTO) 1.6 x10^3/uL (2.2-4.8); NEUTROPHILS % (AUTO) 46.3 % (42.0-75.0); PLATELET COUNT 154 X10^3/uL (150.0-450.0); RED BLOOD COUNT 4.24 X10^6/uL (3.5-5.4); RED CELL DISTRIBUTION WIDTH 19.5 % (11.6-16.5); SODIUM 144 mmol/L (136-145); WHITE BLOOD COUNT 3.5 X10^3/uL (3.6-10.0); eGFR NON BLACK RACES 59 (>60)
[2018-09-14] MEDS: SYNTHROID 125 mcg TAB PO SCH (06:03)
[2018-09-14 06:08] LABS: HYPOCHROMASIA 1+; PLATELET MORPHOLOGY COMMENT NORMAL (NORMAL)
[2018-09-14 06:09] LABS: ANISOCYTOSIS SLIGHT; POIKILOCYTOSIS SLIGHT
[2018-09-14] MEDS: K-DUR TAB 20 MEQ PO PRN (06:19)
--- NOTE | 2018-09-14 07:16 | RAD ---
HISTORY: Shortness of breath Study: Chest AP portable Comparison: 09/13/2018 Findings: The heart is enlarged. No congestive heart failure is noted. The katja are normal. The lung sosa are clear. The bony thorax is unremarkable with the exception of bilateral chronic rotator cuff disease. IMPRESSION: Continued cardiomegaly without congestive heart failure No infiltrates Reported By:
[2018-09-14] MEDS: FORTAZ or TAZICEF VIAL INJ IVP SCH ×2 (09:56→20:41)
[2018-09-14] MEDS: VSL#3 PO SCH (09:56)
[2018-09-14] MEDS: COLACE CAP 100 MG PO SCH ×2 (09:56→20:45)
[2018-09-14] MEDS: ABILIFY PO SCH ×2 (09:56→22:30)
[2018-09-14] MEDS: TAB-A-VITE PO SCH (09:57)
[2018-09-14] MEDS: LASIX PO SCH ×2 (09:57→20:45)
[2018-09-14] MEDS: ZANTAC PO SCH ×2 (09:57→20:45)
[2018-09-14] MEDS: NORVASC TAB 10 MG PO SCH (09:57)
[2018-09-14] MEDS: LOVENOX INJ 40 MG SYR SC SCH (09:58)
[2018-09-14] MEDS: ROBITUSSIN DM PO SCH ×4 (09:58→20:40)
[2018-09-14] MEDS: VASOTEC TAB 20 MG PO SCH ×2 (10:02→20:47)
[2018-09-14] MEDS: NYSTATIN POWDER TOP SCH ×2 (10:03→20:46)
[2018-09-14] MEDS: LEVAQUIN PREMIX IV 500 MG 500 MG/100 ML BAG IV SCH (10:03)
[2018-09-14 10:40] LABS: CRYPTOSPORIDIUM PARVUM ANTIGEN NEGATIVE (NEGATIVE); GIARDIA LAMBLIA ANTIGEN NEGATIVE (NEGATIVE)
--- NOTE | 2018-09-14 11:01 | PCM.PROG ---
Progress Note - Progress Note for Day of Date of Exam: 09/12/18 - Subjective Subjective: WAS ADMITTED YESTERDAY FOR BRONCHOPNEUMONIA. TODAY, SHE IS ALERT AND ORIENTED, LYING IN BED ON MORNING ROUNDS. SHE CONTINUES WITH COMPLAINTS OF SHORTNESS OF BREATH AND COUGH. ON EXAMINATION, HEART IS REGULAR IN RATE AND RHYTHM. BILATERAL LUNGS ARE NOTED WITH SCATTERED WHEEZING. ABDOMEN IS ROUND, SOFT, AND NON-TENDER WITH NORMAL BOWEL SOUNDS NOTED IN ALL QUADRNANTS. HER VITALS THIS MORNING ARE: 98.6-52-18-94%-122/58. LABS WERE OBTAINED. ABNORMAL LAB VALUES INCLUDE THE FOLLOWING: HGB 11.0, HCT 33.4, PLT COUNT 148, CHLORIDE 109, BUN 29, CREATININE 1.11, CALCIUM 7.8, ALK PHOS 199, ALBUMIN 2.6. STOOL IS POSITIVE FOR WHITE CELLS. BLOOD AND SPUTUM CULTURES ARE PENDING. A CHEST XRAY WAS OBTAINED AND REVEALED: Continued cardiomegaly without congestive heart failure. Lungs now clear. WE WILL CONTINUE WITH IV FLUIDS, ANTIBIOTICS, AND RESPIRATORY TREATMENTS TODAY. OTHERWISE, WE PLAN TO FOLLOW UP WITH AM LABS AND CONTINUE TO MONITOR. - Past Medical Family Social History Past Med/Fam/Surg Hx: No changes since H&P Allergies: Allergies propoxyphene [From Darvon] Allergy (Verified 07/10/18 20:41) - Review of Systems ROS: No change since H&P - Vital Signs and I&O's Vital Signs: Temperature 98.3 F Pulse Rate [Brachial] 74 Pulse Rate 54 Respiratory Rate 20 Blood Pressure [Left Arm] 150/67 Blood Pressure [Left Arm] 118/79 Blood Pressure [Right Arm] 140/64 Blood Pressure 150/67 O2 Sat by Pulse Oximetry 92 Intake and Output: Intake & Output 09/11/18 09/12/18 09/13/18 09/14/18 11:59 11:59 11:59 11:59 Intake Total 660 / 660 490 / 490 840 / 840 Output Total 0 / 0 Balance 660 / 660 490 / 490 840 / 840 - Physical Exam Oriented: Person Eyes: Normal Ear: Normal Nose: Normal Throat: Normal Cardiovascular: Normal : Normal Auscultation: Bowel Sounds: Normal Palpation: Normal Tenderness: Normal Skin: Normal Musculoskeletal: Normal Psychiatric: Normal Mood Description: Calm Affect: Normal Speech Pattern: Delayed - Laboratory and Diagnostics Result Diagrams: 09/14/18 05:10 09/14/18 05:10 Labs: 09/14/18 09:35 Stool - Final 09/11/18 22:24 Sputum - Expectorated Sputum Sputum Culture - Final 09/11/18 22:24 Sputum - Expectorated Sputum - Final 09/11/18 20:58 Blood Blood Culture - Preliminary 09/11/18 20:58 Blood Blood Culture - Preliminary Laboratory WBC 3.5 X10^3/uL (3.6-10.0) L 09/14/18 05:10 RBC 4.24 X10^6/uL (3.5-5.4) 09/14/18 05:10 Hgb 11.0 g/dL (12.0-16.0) L 09/14/18 05:10 Hct 33.1 % (36.0-47.0) L 09/14/18 05:10 MCV 78.1 fL (80.0-100.0) L 09/14/18 05:10 MCH 25.9 pg (27.0-34.0) L 09/14/18 05:10 MCHC 33.2 g/dL (33.0-35.0) 09/14/18 05:10 RDW 19.5 % (11.6-16.5) H 09/14/18 05:10 Plt Count 154 X10^3/uL (150.0-450.0) 09/14/18 05:10 Plt Count Comment Adequate (ADEQUATE) 09/14/18 05:10 MPV 7.4 fL (7.4-11.0) 09/14/18 05:10 Neut % (Auto) 46.3 % (42.0-75.0) 09/14/18 05:10 Lymph % (Auto) 33.2 % (21.0-51.0) 09/14/18 05:10 [place] % (Auto) 16.1 % (0.0-13.0) H 09/14/18 05:10 Eos % (Auto) 4.0 % (0.9-2.9) H 09/14/18 05:10 Baso % (Auto) 0.4 % (0.2-1.0) 09/14/18 05:10 Neut # (Auto) 1.6 x10^3/uL (2.2-4.8) L 09/14/18 05:10 Lymph # (Auto) 1.2 X10^3/uL (1.3-2.9) L 09/14/18 05:10 [place] # (Auto) 0.6 x10^3/uL (0.3-0.8) 09/14/18 05:10 Eos # (Auto) 0.1 x10^3/uL (0.0-0.2) 09/14/18 05:10 Baso # (Auto) 0.0 X10^3/uL (0.0-0.1) 09/14/18 05:10 Absolute Nucleated RBC 0.1 /100WBC 09/14/18 05:10 Plt Morphology Comment Normal (NORMAL) 09/14/18 05:10 RBC Morphology Abnormal (NORMAL) A 09/14/18 05:10 Hypochromasia 1+ A 09/14/18 05:10 Poikilocytosis Slight A 09/14/18 05:10 Anisocytosis Slight A 09/14/18 05:10 Sodium 144 mmol/L (136-145) 09/14/18 05:10 Corrected Sodium TNP 09/14/18 05:10 Potassium 3.6 mmol/L (3.5-5.1) 09/14/18 05:10 Chloride 107 mmol/L (98-107) 09/14/18 05:10 Carbon Dioxide 29.0 mmol/L (21-32) 09/14/18 05:10 BUN 14 mg/dL (7-18) 09/14/18 05:10 Creatinine 0.97 mg/dL (0.55-1.02) 09/14/18 05:10 Est GFR (MDRD) Af Amer > 60 (>60) 09/14/18 05:10 Est GFR (MDRD) Non-Af 59 (>60) 09/14/18 05:10 Glucose 91 mg/dL (65-99) 09/14/18 05:10 Calcium 8.1 mg/dL (8.5-10.1) L 09/14/18 05:10 Corrected Calcium 9.1 mg/dL (8.5-10.1) 09/14/18 05:10 Magnesium 2.0 mg/dL (1.7-2.9) 09/11/18 20:58 Total Bilirubin 0.50 mg/dL (0.2-1.0) 09/14/18 05:10 AST 28 Units/L (15-37) 09/14/18 05:10 ALT 47 Units/L (12-78) 09/14/18 05:10 Alkaline Phosphatase 192 Units/L (46-116) H 09/14/18 05:10 Total Protein 7.0 g/dL (6.4-8.2) 09/14/18 05:10 Albumin 2.8 g/dL (3.4-5.0) L 09/14/18 05:10 Globulin 4.2 g/dL (2.5-4.5) 09/14/18 05:10 Albumin/Globulin Ratio 0.7 Ratio (1.1-2.1) L 09/14/18 05:10 Stool Description 65g,brown,unformed 09/14/18 09:35 Stl Occult Blood (IFOB) Negative (NEGATIVE) 09/14/18 09:35 Stool for White Cells Positive (NEGATIVE) A 09/14/18 09:35 Stl C. diff Tox B Gene Negative (NEGATIVE) 09/14/18 09:35 Stl C. diff [id number] Negative (NEGATIVE) 09/14/18 09:35 Cryptosporid parvum Ag Negative (NEGATIVE) 09/14/18 09:35 Giardia lamblia Ag Negative (NEGATIVE) 09/14/18 09:35 - Plan (1) Bronchopneumonia Status: Acute Plan: IV FLUIDS, IV ANTIBIOTICS, RESPIRATORY TREATMENTS, SUPPLEMENTAL OXYGEN, CONTINUE TO MONITOR
[2018-09-14] MEDS ORDERED: LEXAPRO ONE (19:48)
[2018-09-14] MEDS: LEXAPRO PO SCH (20:45)
[2018-09-14] MEDS: ARICEPT TAB 10 MG PO SCH (20:45)
[2018-09-14] MEDS: LIPITOR TAB 10 MG PO SCH (20:45)
[2018-09-14] MEDS: NS 1/2 1000 ML IV 1,000 ML IV SCH (20:46)
--- NOTE | 2018-09-14 22:07 | PCM.PROG ---
Progress Note - Progress Note for Day of Date of Exam: 09/13/18 - Subjective Subjective: WAS ADMITTED FOR TREATMENT OF BRONCHOPNEUMONIA. TODAY, SHE IS ALERT AND ORIENTED, LYING IN BED ON MORNING ROUNDS. SHE CONTINUES WITH COMPLAINTS OF SHORTNESS OF BREATH AND COUGH. ON EXAMINATION, HEART IS REGULAR IN RATE AND RHYTHM. BILATERAL LUNGS ARE NOTED WITH SCATTERED WHEEZING. ABDOMEN IS ROUND, SOFT, AND NON-TENDER WITH NORMAL BOWEL SOUNDS NOTED IN ALL QUADRNANTS. HER VITALS THIS MORNING ARE: 98.3-50-18-95%-142/63. LABS WERE OBTAINED. ABNORMAL LAB VALUES INCLUDE THE FOLLOWING: WBC 3.0, HGB 10.8, HCT 32.9, PLT COUNT 144, SODIUM 146, CHLORIDE 111, CALCIUM 7.8, ALK PHOS 186, ALBUMIN 2.6. STOOL IS POSITIVE FOR WHITE CELLS. BLOOD AND SPUTUM CULTURES ARE PENDING. A CHEST XRAY WAS OBTAINED AND REVEALED: Continued cardiomegaly without congestive heart failure. No infiltrates. WE WILL CONTINUE WITH IV FLUIDS, ANTIBIOTICS, AND RESPIRATORY TREATMENTS TODAY. OTHERWISE, WE PLAN TO FOLLOW UP WITH AM LABS AND CONTINUE TO MONITOR. - Past Medical Family Social History Past Med/Fam/Surg Hx: No changes since H&P Allergies: Allergies propoxyphene [From Darvon] Allergy (Verified 07/10/18 20:41) - Review of Systems ROS: No change since H&P - Vital Signs and I&O's Vital Signs: Temperature 98.6 F Pulse Rate [Brachial] 63 Pulse Rate 62 Respiratory Rate 20 Blood Pressure [Left Arm] 150/67 Blood Pressure [Left Arm] 118/79 Blood Pressure [Right Arm] 169/67 Blood Pressure 150/67 O2 Sat by Pulse Oximetry 93 Intake and Output: Intake & Output 09/12/18 09/13/18 09/14/18 09/15/18 11:59 11:59 11:59 11:59 Intake Total 660 / 660 490 / 490 840 / 840 480 / 480 Output Total 0 / 0 Balance 660 / 660 490 / 490 840 / 840 480 / 480 - Physical Exam Oriented: Person Eyes: Normal Ear: Normal Nose: Normal Throat: Normal Cardiovascular: Normal : Normal Auscultation: Bowel Sounds: Normal Tenderness: Normal Skin: Normal Musculoskeletal: Normal Psychiatric: Normal Mood Description: Calm Affect: Normal Speech Pattern: Delayed - Laboratory and Diagnostics Result Diagrams: 09/14/18 05:10 09/14/18 05:10 Labs: 09/14/18 09:35 Stool - Final 09/11/18 22:24 Sputum - Expectorated Sputum Sputum Culture - Final 09/11/18 22:24 Sputum - Expectorated Sputum - Final 09/11/18 20:58 Blood Blood Culture - Preliminary 09/11/18 20:58 Blood Blood Culture - Preliminary Laboratory WBC 3.5 X10^3/uL (3.6-10.0) L 09/14/18 05:10 RBC 4.24 X10^6/uL (3.5-5.4) 09/14/18 05:10 Hgb 11.0 g/dL (12.0-16.0) L 09/14/18 05:10 Hct 33.1 % (36.0-47.0) L 09/14/18 05:10 MCV 78.1 fL (80.0-100.0) L 09/14/18 05:10 MCH 25.9 pg (27.0-34.0) L 09/14/18 05:10 MCHC 33.2 g/dL (33.0-35.0) 09/14/18 05:10 RDW 19.5 % (11.6-16.5) H 09/14/18 05:10 Plt Count 154 X10^3/uL (150.0-450.0) 09/14/18 05:10 Plt Count Comment Adequate (ADEQUATE) 09/14/18 05:10 MPV 7.4 fL (7.4-11.0) 09/14/18 05:10 Neut % (Auto) 46.3 % (42.0-75.0) 09/14/18 05:10 Lymph % (Auto) 33.2 % (21.0-51.0) 09/14/18 05:10 [place] % (Auto) 16.1 % (0.0-13.0) H 09/14/18 05:10 Eos % (Auto) 4.0 % (0.9-2.9) H 09/14/18 05:10 Baso % (Auto) 0.4 % (0.2-1.0) 09/14/18 05:10 Neut # (Auto) 1.6 x10^3/uL (2.2-4.8) L 09/14/18 05:10 Lymph # (Auto) 1.2 X10^3/uL (1.3-2.9) L 09/14/18 05:10 [place] # (Auto) 0.6 x10^3/uL (0.3-0.8) 09/14/18 05:10 Eos # (Auto) 0.1 x10^3/uL (0.0-0.2) 09/14/18 05:10 Baso # (Auto) 0.0 X10^3/uL (0.0-0.1) 09/14/18 05:10 Absolute Nucleated RBC 0.1 /100WBC 09/14/18 05:10 Plt Morphology Comment Normal (NORMAL) 09/14/18 05:10 RBC Morphology Abnormal (NORMAL) A 09/14/18 05:10 Hypochromasia 1+ A 09/14/18 05:10 Poikilocytosis Slight A 09/14/18 05:10 Anisocytosis Slight A 09/14/18 05:10 Sodium 144 mmol/L (136-145) 09/14/18 05:10 Corrected Sodium TNP 09/14/18 05:10 Potassium 3.6 mmol/L (3.5-5.1) 09/14/18 05:10 Chloride 107 mmol/L (98-107) 09/14/18 05:10 Carbon Dioxide 29.0 mmol/L (21-32) 09/14/18 05:10 BUN 14 mg/dL (7-18) 09/14/18 05:10 Creatinine 0.97 mg/dL (0.55-1.02) 09/14/18 05:10 Est GFR (MDRD) Af Amer > 60 (>60) 09/14/18 05:10 Est GFR (MDRD) Non-Af 59 (>60) 09/14/18 05:10 Glucose 91 mg/dL (65-99) 09/14/18 05:10 Calcium 8.1 mg/dL (8.5-10.1) L 09/14/18 05:10 Corrected Calcium 9.1 mg/dL (8.5-10.1) 09/14/18 05:10 Magnesium 2.0 mg/dL (1.7-2.9) 09/11/18 20:58 Total Bilirubin 0.50 mg/dL (0.2-1.0) 09/14/18 05:10 AST 28 Units/L (15-37) 09/14/18 05:10 ALT 47 Units/L (12-78) 09/14/18 05:10 Alkaline Phosphatase 192 Units/L (46-116) H 09/14/18 05:10 Total Protein 7.0 g/dL (6.4-8.2) 09/14/18 05:10 Albumin 2.8 g/dL (3.4-5.0) L 09/14/18 05:10 Globulin 4.2 g/dL (2.5-4.5) 09/14/18 05:10 Albumin/Globulin Ratio 0.7 Ratio (1.1-2.1) L 09/14/18 05:10 Stool Description 65g,brown,unformed 09/14/18 09:35 Stl Occult Blood (IFOB) Negative (NEGATIVE) 09/14/18 09:35 Stool for White Cells Positive (NEGATIVE) A 09/14/18 09:35 Stl C. diff Tox B Gene Negative (NEGATIVE) 09/14/18 09:35 Stl C. diff 027-NAP1-BI Negative (NEGATIVE) 09/14/18 09:35 Cryptosporid parvum Ag Negative (NEGATIVE) 09/14/18 09:35 Giardia lamblia Ag Negative (NEGATIVE) 09/14/18 09:35 - Plan (1) Bronchopneumonia Status: Acute Plan: IV FLUIDS, IV ANTIBIOTICS, RESPIRATORY TREATMENTS, SUPPLEMENTAL OXYGEN, CONTINUE TO MONITOR
[2018-09-15] MEDS: DUONEB 0.5 MG/3 MG NEB SCH ×6 (00:53→20:51)
[2018-09-15 05:39] LABS: BASOPHILS % (AUTO) 0.5 % (0.2-1.0); EOSINOPHILS # (AUTO) 0.2 x10^3/uL (0.0-0.2); EOSINOPHILS % (AUTO) 4.2 % (0.9-2.9); HEMATOCRIT 34.5 % (36.0-47.0); HEMOGLOBIN 11.4 g/dL (12.0-16.0); LYMPHOCYTES # (AUTO) 1.2 X10^3/uL (1.3-2.9); LYMPHOCYTES % (AUTO) 32.6 % (21.0-51.0); MEAN CORPUSCULAR HEMOGLOBIN 25.6 pg (27.0-34.0); MEAN CORPUSCULAR VOLUME 77.3 fL (80.0-100.0); MEAN PLATELET VOLUME 7.7 fL (7.4-11.0); MONOCYTES # (AUTO) 0.5 x10^3/uL (0.3-0.8); MONOCYTES % (AUTO) 13.5 % (0.0-13.0); NEUTROPHILS # (AUTO) 1.8 x10^3/uL (2.2-4.8); NEUTROPHILS % (AUTO) 49.2 % (42.0-75.0); PLATELET COUNT 170 X10^3/uL (150.0-450.0); RED BLOOD COUNT 4.46 X10^6/uL (3.5-5.4); RED CELL DISTRIBUTION WIDTH 19.6 % (11.6-16.5); WHITE BLOOD COUNT 3.6 X10^3/uL (3.6-10.0)
[2018-09-15 05:55] LABS: ALANINE AMINOTRANSFERASE 40 Units/L (12-78); ALBUMIN 2.8 g/dL (3.4-5.0); ALKALINE PHOSPHATASE 190 Units/L (46-116); ASPARTATE AMINO TRANSFERASE 28 Units/L (15-37); BLOOD UREA NITROGEN 14 mg/dL (7-18); CALCIUM 8.4 mg/dL (8.5-10.1); CARBON DIOXIDE 29.8 mmol/L (21-32); CHLORIDE 106 mmol/L (98-107); COR CA(FOR HYPOALB) 9.4 mg/dL (8.5-10.1); CREATININE 1.04 mg/dL (0.55-1.02); SODIUM 143 mmol/L (136-145); TOTAL PROTEIN 7.1 g/dL (6.4-8.2); eGFR NON BLACK RACES 54 (>60)
[2018-09-15] MEDS: CARAFATE PO SCH ×3 (05:58→21:41)
[2018-09-15 06:04] LABS: HYPOCHROMASIA SLIGHT; PLATELET MORPHOLOGY COMMENT NORMAL (NORMAL)
[2018-09-15] MEDS: SYNTHROID 125 mcg TAB PO SCH (06:20)
[2018-09-15] MEDS: K-DUR TAB 20 MEQ PO PRN (06:25)
[2018-09-15] MEDS: LOVENOX INJ 40 MG SYR SC SCH (09:30)
[2018-09-15] MEDS: ZANTAC PO SCH ×2 (09:30→21:42)
[2018-09-15] MEDS: ROBITUSSIN DM PO SCH ×4 (09:30→21:40)
[2018-09-15] MEDS: COLACE CAP 100 MG PO SCH ×2 (09:30→21:40)
[2018-09-15] MEDS: FORTAZ or TAZICEF VIAL INJ IVP SCH ×2 (09:30→21:39)
[2018-09-15] MEDS: VSL#3 PO SCH (09:31)
[2018-09-15] MEDS: LASIX PO SCH ×2 (09:32→21:40)
[2018-09-15] MEDS: TAB-A-VITE PO SCH (09:32)
[2018-09-15] MEDS: NORVASC TAB 10 MG PO SCH (09:32)
[2018-09-15] MEDS: ABILIFY PO SCH ×2 (09:32→21:43)
[2018-09-15] MEDS: LEVAQUIN PREMIX IV 500 MG 500 MG/100 ML BAG IV SCH (09:32)
[2018-09-15] MEDS: NYSTATIN POWDER TOP SCH ×2 (09:32→21:49)
[2018-09-15] MEDS: VASOTEC TAB 20 MG PO SCH ×2 (09:33→21:50)
[2018-09-15] MEDS: NS 1/2 1000 ML IV 1,000 ML IV SCH (18:14)
[2018-09-15] MEDS ORDERED: NS 1/2 1000 ML IV 1,000 ML ONE (18:14)
[2018-09-15] MEDS ORDERED: LEXAPRO ONE (20:22)
[2018-09-15] MEDS: ARICEPT TAB 10 MG PO SCH (21:40)
[2018-09-15] MEDS: LEXAPRO PO SCH (21:43)
[2018-09-15] MEDS: LIPITOR TAB 10 MG PO SCH (21:47)
--- NOTE | 2018-09-15 21:50 | PCM.PROG ---
Progress Note - Progress Note for Day of Date of Exam: 09/14/18 - Subjective Subjective: WAS ADMITTED FOR TREATMENT OF BRONCHOPNEUMONIA. TODAY, SHE IS ALERT AND ORIENTED, LYING IN BED ON MORNING ROUNDS. SHE CONTINUES WITH COMPLAINTS OF SHORTNESS OF BREATH AND COUGH. ON EXAMINATION, HEART IS REGULAR IN RATE AND RHYTHM. BILATERAL LUNGS ARE NOTED WITH SCATTERED WHEEZING. ABDOMEN IS ROUND, SOFT, AND NON-TENDER WITH NORMAL BOWEL SOUNDS NOTED IN ALL QUADRNANTS. HER VITALS THIS MORNING ARE: 98.3-74-20-93%-140/64. LABS WERE OBTAINED. ABNORMAL LAB VALUES INCLUDE THE FOLLOWING: WBC 3.5, HGB 11.0, HCT 33.1, CALCIUM 8.1, ALK PHOS 192, ALBUMIN 2.8. STOOL IS POSITIVE FOR WHITE CELLS. BLOOD AND SPUTUM CULTURES ARE PENDING. A CHEST XRAY WAS OBTAINED AND REVEALED: Continued card iomegaly without congestive heart failure. No infiltrates. WE WILL CONTINUE WITH IV FLUIDS, ANTIBIOTICS, AND RESPIRATORY TREATMENTS TODAY. OTHERWISE, WE PLAN TO FOLLOW UP WITH AM LABS AND CONTINUE TO MONITOR. - Past Medical Family Social History Past Med/Fam/Surg Hx: No changes since H&P Allergies: Allergies propoxyphene [From Darvon] Allergy (Verified 07/10/18 20:41) - Review of Systems ROS: No change since H&P - Vital Signs and I&O's Vital Signs: Temperature 98.3 F Pulse Rate [Brachial] 65 Pulse Rate 46 Respiratory Rate 18 Blood Pressure [Left Arm] 150/67 Blood Pressure [Left Arm] 118/79 Blood Pressure [Right Arm] 122/58 Blood Pressure 150/67 O2 Sat by Pulse Oximetry 96 Intake and Output: Intake & Output 09/13/18 09/14/18 09/15/18 09/16/18 11:59 11:59 11:59 11:59 Intake Total 490 / 490 840 / 840 1140 / 1140 240 / 240 Balance 490 / 490 840 / 840 1140 / 1140 240 / 240 - Physical Exam Oriented: Person Eyes: Normal Ear: Normal Nose: Normal Throat: Normal Cardiovascular: Normal : Normal Auscultation: Bowel Sounds: Normal Tenderness: Normal Skin: Normal Musculoskeletal: Normal Psychiatric: Normal Mood Description: Calm Affect: Normal Speech Pattern: Delayed - Laboratory and Diagnostics Result Diagrams: 09/15/18 05:15 09/15/18 05:15 Labs: 09/14/18 09:35 Stool Stool Culture - Preliminary 09/14/18 09:35 Stool - Final 09/11/18 22:24 Sputum - Expectorated Sputum Sputum Culture - Final 09/11/18 22:24 Sputum - Expectorated Sputum - Final 09/11/18 20:58 Blood Blood Culture - Preliminary 09/11/18 20:58 Blood Blood Culture - Preliminary Laboratory WBC 3.6 X10^3/uL (3.6-10.0) 09/15/18 05:15 RBC 4.46 X10^6/uL (3.5-5.4) 09/15/18 05:15 Hgb 11.4 g/dL (12.0-16.0) L 09/15/18 05:15 Hct 34.5 % (36.0-47.0) L 09/15/18 05:15 MCV 77.3 fL (80.0-100.0) L 09/15/18 05:15 MCH 25.6 pg (27.0-34.0) L 09/15/18 05:15 MCHC 33.0 g/dL (33.0-35.0) 09/15/18 05:15 RDW 19.6 % (11.6-16.5) H 09/15/18 05:15 Plt Count 170 X10^3/uL (150.0-450.0) 09/15/18 05:15 Plt Count Comment Adequate (ADEQUATE) 09/15/18 05:15 MPV 7.7 fL (7.4-11.0) 09/15/18 05:15 Neut % (Auto) 49.2 % (42.0-75.0) 09/15/18 05:15 Lymph % (Auto) 32.6 % (21.0-51.0) 09/15/18 05:15 [place] % (Auto) 13.5 % (0.0-13.0) H 09/15/18 05:15 Eos % (Auto) 4.2 % (0.9-2.9) H 09/15/18 05:15 Baso % (Auto) 0.5 % (0.2-1.0) 09/15/18 05:15 Neut # (Auto) 1.8 x10^3/uL (2.2-4.8) L 09/15/18 05:15 Lymph # (Auto) 1.2 X10^3/uL (1.3-2.9) L 09/15/18 05:15 [place] # (Auto) 0.5 x10^3/uL (0.3-0.8) 09/15/18 05:15 Eos # (Auto) 0.2 x10^3/uL (0.0-0.2) 09/15/18 05:15 Baso # (Auto) 0.0 X10^3/uL (0.0-0.1) 09/15/18 05:15 Absolute Nucleated RBC 0.2 /100WBC 09/15/18 05:15 Plt Morphology Comment Normal (NORMAL) 09/15/18 05:15 RBC Morphology Abnormal (NORMAL) A 09/15/18 05:15 Hypochromasia Slight A 09/15/18 05:15 Poikilocytosis Slight A 09/14/18 05:10 Anisocytosis Slight A 09/14/18 05:10 Sodium 143 mmol/L (136-145) 09/15/18 05:15 Corrected Sodium TNP 09/15/18 05:15 Potassium 3.8 mmol/L (3.5-5.1) 09/15/18 05:15 Chloride 106 mmol/L (98-107) 09/15/18 05:15 Carbon Dioxide 29.8 mmol/L (21-32) 09/15/18 05:15 BUN 14 mg/dL (7-18) 09/15/18 05:15 Creatinine 1.04 mg/dL (0.55-1.02) H 09/15/18 05:15 Est GFR (MDRD) Af Amer > 60 (>60) 09/15/18 05:15 Est GFR (MDRD) Non-Af 54 (>60) L 09/15/18 05:15 Glucose 92 mg/dL (65-99) 09/15/18 05:15 Calcium 8.4 mg/dL (8.5-10.1) L 09/15/18 05:15 Corrected Calcium 9.4 mg/dL (8.5-10.1) 09/15/18 05:15 Magnesium 2.0 mg/dL (1.7-2.9) 09/11/18 20:58 Total Bilirubin 0.50 mg/dL (0.2-1.0) 09/15/18 05:15 AST 28 Units/L (15-37) 09/15/18 05:15 ALT 40 Units/L (12-78) 09/15/18 05:15 Alkaline Phosphatase 190 Units/L (46-116) H 09/15/18 05:15 Total Protein 7.1 g/dL (6.4-8.2) 09/15/18 05:15 Albumin 2.8 g/dL (3.4-5.0) L 09/15/18 05:15 Globulin 4.3 g/dL (2.5-4.5) 09/15/18 05:15 Albumin/Globulin Ratio 0.7 Ratio (1.1-2.1) L 09/15/18 05:15 Stool Description 65g,brown,unformed 09/14/18 09:35 Stl Occult Blood (IFOB) Negative (NEGATIVE) 09/14/18 09:35 Stool for White Cells Positive (NEGATIVE) A 09/14/18 09:35 Stl C. diff Tox B Gene Negative (NEGATIVE) 09/14/18 09:35 Stl C. diff 027-NAP1-BI Negative (NEGATIVE) 09/14/18 09:35 Cryptosporid parvum Ag Negative (NEGATIVE) 09/14/18 09:35 Giardia lamblia Ag Negative (NEGATIVE) 09/14/18 09:35 - Plan (1) Bronchopneumonia Status: Acute Plan: IV FLUIDS, IV ANTIBIOTICS, RESPIRATORY TREATMENTS, SUPPLEMENTAL OXYGEN, CONTINUE TO MONITOR
[2018-09-16] MEDS: DUONEB 0.5 MG/3 MG NEB SCH ×6 (00:30→20:38)
--- NOTE | 2018-09-16 05:12 | RAD ---
Chest radiograph, single AP view. History: Shortness of breath Comparison: 09/14/2018. Findings: There is cardiomegaly with increasing pulmonary vasculature congestion. No focal alveolar consolidation is identified. There is no pneumothorax or pleural effusion. Conclusion: Worsening CHF/volume overload. Reported By:
[2018-09-16] MEDS: CARAFATE PO SCH ×3 (05:21→21:59)
[2018-09-16 05:25] LABS: BASOPHILS % (AUTO) 0.5 % (0.2-1.0); EOSINOPHILS # (AUTO) 0.2 x10^3/uL (0.0-0.2); EOSINOPHILS % (AUTO) 4.3 % (0.9-2.9); HEMATOCRIT 35.5 % (36.0-47.0); HEMOGLOBIN 11.6 g/dL (12.0-16.0); LYMPHOCYTES # (AUTO) 1.3 X10^3/uL (1.3-2.9); MEAN CORPUSCULAR HEMOGLOBIN 25.3 pg (27.0-34.0); MEAN CORPUSCULAR HGB CONC 32.8 g/dL (33.0-35.0); MEAN CORPUSCULAR VOLUME 77.3 fL (80.0-100.0); MEAN PLATELET VOLUME 7.3 fL (7.4-11.0); MONOCYTES # (AUTO) 0.5 x10^3/uL (0.3-0.8); MONOCYTES % (AUTO) 12.4 % (0.0-13.0); NEUTROPHILS % (AUTO) 49.8 % (42.0-75.0); PLATELET COUNT 191 X10^3/uL (150.0-450.0); RED BLOOD COUNT 4.59 X10^6/uL (3.5-5.4); RED CELL DISTRIBUTION WIDTH 19.7 % (11.6-16.5)
[2018-09-16 05:40] LABS: ALANINE AMINOTRANSFERASE 35 Units/L (12-78); ALBUMIN 2.9 g/dL (3.4-5.0); ALKALINE PHOSPHATASE 187 Units/L (46-116); ASPARTATE AMINO TRANSFERASE 28 Units/L (15-37); BLOOD UREA NITROGEN 20 mg/dL (7-18); CALCIUM 8.4 mg/dL (8.5-10.1); CARBON DIOXIDE 28.5 mmol/L (21-32); CHLORIDE 107 mmol/L (98-107); COR CA(FOR HYPOALB) 9.3 mg/dL (8.5-10.1); CREATININE 1.04 mg/dL (0.55-1.02); SODIUM 144 mmol/L (136-145); TOTAL PROTEIN 7.1 g/dL (6.4-8.2); eGFR NON BLACK RACES 54 (>60)
[2018-09-16] MEDS: ABILIFY PO SCH ×2 (08:52→21:58)
[2018-09-16] MEDS: LOVENOX INJ 40 MG SYR SC SCH (08:52)
[2018-09-16] MEDS: ROBITUSSIN DM PO SCH ×4 (08:53→21:57)
[2018-09-16] MEDS: TAB-A-VITE PO SCH (08:53)
[2018-09-16] MEDS: SYNTHROID 125 mcg TAB PO SCH (08:53)
[2018-09-16] MEDS: VSL#3 PO SCH (08:53)
[2018-09-16] MEDS: COLACE CAP 100 MG PO SCH ×2 (08:53→21:59)
[2018-09-16] MEDS: ZANTAC PO SCH ×2 (08:53→21:58)
[2018-09-16] MEDS: LASIX PO SCH (08:53)
[2018-09-16] MEDS: LEVAQUIN PREMIX IV 500 MG 500 MG/100 ML BAG IV SCH (08:53)
[2018-09-16] MEDS: FORTAZ or TAZICEF VIAL INJ IVP SCH ×2 (08:53→21:57)
[2018-09-16] MEDS: VASOTEC TAB 20 MG PO SCH ×2 (08:54→21:30)
[2018-09-16] MEDS: NYSTATIN POWDER TOP SCH ×2 (08:54→21:30)
[2018-09-16] MEDS: NORVASC TAB 10 MG PO SCH (08:54)
[2018-09-16] MEDS: LASIX IVP SCH ×2 (11:29→21:54)
--- NOTE | 2018-09-16 14:32 | PCM.PROG ---
Progress Note - Progress Note for Day of Date of Exam: 09/15/18 - Subjective Subjective: WAS ADMITTED FOR TREATMENT OF BRONCHOPNEUMONIA. TODAY, SHE IS ALERT AND ORIENTED, LYING IN BED ON MORNING ROUNDS. SHE CONTINUES WITH COMPLAINTS OF SHORTNESS OF BREATH AND COUGH. ON EXAMINATION, HEART IS REGULAR IN RATE AND RHYTHM. BILATERAL LUNGS ARE NOTED WITH SCATTERED WHEEZING. ABDOMEN IS ROUND, SOFT, AND NON-TENDER WITH NORMAL BOWEL SOUNDS NOTED IN ALL QUADRNANTS. HER VITALS THIS MORNING ARE: 98.3-77-18-95%-166/92. LABS WERE OBTAINED. ABNORMAL LAB VALUES INCLUDE THE FOLLOWING: HGB 11.4, HCT 34.5, CREATININE 1.04, CALCIUM 8.4, ALK PHOS 190, ALBUMIN 2.8. STOOL IS POSITIVE FOR WHITE CELLS. BLOOD AND SPUTUM CULTURES ARE PENDING. WE WILL CONTINUE WITH IV FLUIDS, ANTIBIOTICS, AND RESPIRATORY TREATMENTS TODAY. OTHERWISE, WE PLAN TO FOLLOW UP WITH AM LABS AND CONTINUE TO MONITOR. - Past Medical Family Social History Past Med/Fam/Surg Hx: No changes since H&P Allergies: Allergies propoxyphene [From Darvon] Allergy (Verified 07/10/18 20:41) - Review of Systems ROS: No change since H&P - Vital Signs and I&O's Vital Signs: Temperature 98.0 F Pulse Rate [Brachial] 61 Pulse Rate 64 Respiratory Rate 18 Blood Pressure [Left Arm] 110/62 Blood Pressure [Left Arm] 118/79 Blood Pressure [Right Arm] 128/68 Blood Pressure 150/67 O2 Sat by Pulse Oximetry 96 Intake and Output: Intake & Output 09/14/18 09/15/18 09/16/18 09/17/18 11:59 11:59 11:59 11:59 Intake Total 840 / 840 1140 / 1140 1220 / 1220 Balance 840 / 840 1140 / 1140 1220 / 1220 - Physical Exam Oriented: Person Eyes: Normal Ear: Normal Nose: Normal Throat: Normal Cardiovascular: Normal : Normal Auscultation: Bowel Sounds: Normal Tenderness: Normal Skin: Normal Musculoskeletal: Normal Psychiatric: Normal Mood Description: Calm Affect: Normal Speech Pattern: Delayed - Laboratory and Diagnostics Result Diagrams: 09/16/18 04:54 09/16/18 04:54 Labs: 09/14/18 09:35 Stool Stool Culture - Final 09/14/18 09:35 Stool - Final 09/11/18 22:24 Sputum - Expectorated Sputum Sputum Culture - Final 09/11/18 22:24 Sputum - Expectorated Sputum - Final 09/11/18 20:58 Blood Blood Culture - Preliminary 09/11/18 20:58 Blood Blood Culture - Preliminary Laboratory WBC 4.0 X10^3/uL (3.6-10.0) 09/16/18 04:54 RBC 4.59 X10^6/uL (3.5-5.4) 09/16/18 04:54 Hgb 11.6 g/dL (12.0-16.0) L 09/16/18 04:54 Hct 35.5 % (36.0-47.0) L 09/16/18 04:54 MCV 77.3 fL (80.0-100.0) L 09/16/18 04:54 MCH 25.3 pg (27.0-34.0) L 09/16/18 04:54 MCHC 32.8 g/dL (33.0-35.0) L 09/16/18 04:54 RDW 19.7 % (11.6-16.5) H 09/16/18 04:54 Plt Count 191 X10^3/uL (150.0-450.0) 09/16/18 04:54 Plt Count Comment Adequate (ADEQUATE) 09/15/18 05:15 MPV 7.3 fL (7.4-11.0) L 09/16/18 04:54 Neut % (Auto) 49.8 % (42.0-75.0) 09/16/18 04:54 Lymph % (Auto) 33.0 % (21.0-51.0) 09/16/18 04:54 [place] % (Auto) 12.4 % (0.0-13.0) 09/16/18 04:54 Eos % (Auto) 4.3 % (0.9-2.9) H 09/16/18 04:54 Baso % (Auto) 0.5 % (0.2-1.0) 09/16/18 04:54 Neut # (Auto) 2.0 x10^3/uL (2.2-4.8) L 09/16/18 04:54 Lymph # (Auto) 1.3 X10^3/uL (1.3-2.9) 09/16/18 04:54 [place] # (Auto) 0.5 x10^3/uL (0.3-0.8) 09/16/18 04:54 Eos # (Auto) 0.2 x10^3/uL (0.0-0.2) 09/16/18 04:54 Baso # (Auto) 0.0 X10^3/uL (0.0-0.1) 09/16/18 04:54 Absolute Nucleated RBC 0.0 /100WBC 09/16/18 04:54 Plt Morphology Comment Normal (NORMAL) 09/15/18 05:15 RBC Morphology Abnormal (NORMAL) A 09/15/18 05:15 Hypochromasia Slight A 09/15/18 05:15 Poikilocytosis Slight A 09/14/18 05:10 Anisocytosis Slight A 09/14/18 05:10 Sodium 144 mmol/L (136-145) 09/16/18 04:54 Corrected Sodium TNP 09/16/18 04:54 Potassium 3.9 mmol/L (3.5-5.1) 09/16/18 04:54 Chloride 107 mmol/L (98-107) 09/16/18 04:54 Carbon Dioxide 28.5 mmol/L (21-32) 09/16/18 04:54 BUN 20 mg/dL (7-18) H 09/16/18 04:54 Creatinine 1.04 mg/dL (0.55-1.02) H 09/16/18 04:54 Est GFR (MDRD) Af Amer > 60 (>60) 09/16/18 04:54 Est GFR (MDRD) Non-Af 54 (>60) L 09/16/18 04:54 Glucose 89 mg/dL (65-99) 09/16/18 04:54 Calcium 8.4 mg/dL (8.5-10.1) L 09/16/18 04:54 Corrected Calcium 9.3 mg/dL (8.5-10.1) 09/16/18 04:54 Magnesium 2.0 mg/dL (1.7-2.9) 09/11/18 20:58 Total Bilirubin 0.50 mg/dL (0.2-1.0) 09/16/18 04:54 AST 28 Units/L (15-37) 09/16/18 04:54 ALT 35 Units/L (12-78) 09/16/18 04:54 Alkaline Phosphatase 187 Units/L (46-116) H 09/16/18 04:54 Total Protein 7.1 g/dL (6.4-8.2) 09/16/18 04:54 Albumin 2.9 g/dL (3.4-5.0) L 09/16/18 04:54 Globulin 4.2 g/dL (2.5-4.5) 09/16/18 04:54 Albumin/Globulin Ratio 0.7 Ratio (1.1-2.1) L 09/16/18 04:54 Stool Description 65g,brown,unformed 09/14/18 09:35 Stl Occult Blood (IFOB) Negative (NEGATIVE) 09/14/18 09:35 Stool for White Cells Positive (NEGATIVE) A 09/14/18 09:35 Stl C. diff Tox B Gene Negative (NEGATIVE) 09/14/18 09:35 Stl C. diff 027-NAP1-BI Negative (NEGATIVE) 09/14/18 09:35 Cryptosporid parvum Ag Negative (NEGATIVE) 09/14/18 09:35 Giardia lamblia Ag Negative (NEGATIVE) 09/14/18 09:35 - Plan (1) Bronchopneumonia Status: Acute Plan: IV FLUIDS, IV ANTIBIOTICS, RESPIRATORY TREATMENTS, SUPPLEMENTAL OXYGEN, CONTINUE TO MONITOR
[2018-09-16] MEDS ORDERED: LEXAPRO ONE (20:40)
[2018-09-16] MEDS: LIPITOR TAB 10 MG PO SCH (21:58)
[2018-09-16] MEDS: ARICEPT TAB 10 MG PO SCH (21:58)
[2018-09-16] MEDS: LEXAPRO PO SCH (21:58)
[2018-09-17] MEDS: DUONEB 0.5 MG/3 MG NEB SCH ×3 (01:35→09:09)
[2018-09-17 05:40] LABS: BASOPHILS % (AUTO) 0.6 % (0.2-1.0); EOSINOPHILS # (AUTO) 0.2 x10^3/uL (0.0-0.2); EOSINOPHILS % (AUTO) 3.5 % (0.9-2.9); HEMOGLOBIN 11.9 g/dL (12.0-16.0); LYMPHOCYTES # (AUTO) 1.5 X10^3/uL (1.3-2.9); LYMPHOCYTES % (AUTO) 27.6 % (21.0-51.0); MEAN CORPUSCULAR HEMOGLOBIN 25.4 pg (27.0-34.0); MEAN CORPUSCULAR HGB CONC 32.2 g/dL (33.0-35.0); MEAN CORPUSCULAR VOLUME 78.7 fL (80.0-100.0); MONOCYTES # (AUTO) 0.7 x10^3/uL (0.3-0.8); MONOCYTES % (AUTO) 12.2 % (0.0-13.0); NEUTROPHILS # (AUTO) 3.1 x10^3/uL (2.2-4.8); NEUTROPHILS % (AUTO) 56.1 % (42.0-75.0); PLATELET COUNT 212 X10^3/uL (150.0-450.0); RED BLOOD COUNT 4.69 X10^6/uL (3.5-5.4); RED CELL DISTRIBUTION WIDTH 19.2 % (11.6-16.5); WHITE BLOOD COUNT 5.5 X10^3/uL (3.6-10.0)
[2018-09-17 06:01] LABS: HYPOCHROMASIA SLIGHT; PLATELET MORPHOLOGY COMMENT NORMAL (NORMAL)
[2018-09-17] MEDS: SYNTHROID 125 mcg TAB PO SCH (06:03)
[2018-09-17 06:04] LABS: ALANINE AMINOTRANSFERASE 37 Units/L (12-78); ALKALINE PHOSPHATASE 179 Units/L (46-116); ASPARTATE AMINO TRANSFERASE 34 Units/L (15-37); BLOOD UREA NITROGEN 27 mg/dL (7-18); CALCIUM 8.6 mg/dL (8.5-10.1); CARBON DIOXIDE 32.6 mmol/L (21-32); CHLORIDE 106 mmol/L (98-107); COR CA(FOR HYPOALB) 9.4 mg/dL (8.5-10.1); SODIUM 145 mmol/L (136-145); TOTAL PROTEIN 7.3 g/dL (6.4-8.2); eGFR NON BLACK RACES 46 (>60)
[2018-09-17] MEDS: CARAFATE PO SCH (06:04)
--- NOTE | 2018-09-17 07:19 | RAD ---
HISTORY: Shortness of breath Study: Single view chest Comparison: 09/16/2018 Findings: Stable retrocardiac density suggestive of chronic scarring or atelectasis. No infiltrate, effusion or pneumothorax identified. The cardiac and mediastinal contours are within normal limits. The soft tissues are unremarkable. IMPRESSION: 1. Stable chest with retrocardiac density that may be due to scarring or atelectasis. Reported By:
[2018-09-17] MEDS: VSL#3 PO SCH (09:12)
[2018-09-17] MEDS: FORTAZ or TAZICEF VIAL INJ IVP SCH (09:13)
[2018-09-17] MEDS: ROBITUSSIN DM PO SCH (09:13)
[2018-09-17] MEDS: NORVASC TAB 10 MG PO SCH (09:13)
[2018-09-17] MEDS: TAB-A-VITE PO SCH (09:14)
[2018-09-17] MEDS: COLACE CAP 100 MG PO SCH (09:14)
[2018-09-17] MEDS: ZANTAC PO SCH (09:14)
[2018-09-17] MEDS: VASOTEC TAB 20 MG PO SCH (09:15)
[2018-09-17] MEDS: NYSTATIN POWDER TOP SCH (09:16)
[2018-09-17] MEDS: LOVENOX INJ 40 MG SYR SC SCH (09:16)
[2018-09-17] MEDS: LEVAQUIN PREMIX IV 500 MG 500 MG/100 ML BAG IV SCH (09:16)
[2018-09-17] MEDS: ABILIFY PO SCH (09:19)
[2018-09-17 14:06] VITALS: BP 144/66
== END 2018-09-17 14:10 | DRG 195 ==
LOC: MED/SURG 18:17
PROVIDERS: ADMIT Internal Medicine; ATTEND Internal Medicine
DX: R26.89 Other abnormalities of gait and mobility; E03.8 Other specified hypothyroidism; J18.0 Bronchopneumonia, unspecified organism; I10 Essential (primary) hypertension; E78.2 Mixed hyperlipidemia; K21.9 Gastro-esophageal reflux disease without esophagitis; I25.10 Atherosclerotic heart disease of native coronary artery without angina pectoris
CPT/HCPCS: 36415; 71010; 71045; 80053; 82270; 83630; 83735; 85025; 87040; 87045; 87070; 87205; 87328; 87329; 87427; 87449; 87493; 87899; 94640; 94660; 94760; 97110; 97112; 97116; 97163; 97166; 97530; 97535; A4216; A4222; A4618; A7030; J0400; J0713; J1650; J1940; J1956; J7620

== ENCOUNTER 2020-07-08 06:50 | Observation (INO) ==
[2020-07-08] MEDS ORDERED: D5 LR 1000 ML 1,000 ML IV ONE (06:53)
[2020-07-08] MEDS ORDERED: DIPRIVAN VIAL 20 ML ONE (07:31)
[2020-07-08] MEDS ORDERED: ATROPINE SULFATE ONE (07:39)
[2020-07-08 08:27] LABS: CKMB % 1.5 % (<4); CREATINE KINASE 72 Units/L (26-192); CREATINE KINASE MB 1.1 ng/mL (0-4.0); TROPONIN I < 0.02 ng/mL (0-1.5)
[2020-07-08] MEDS ORDERED: ATROPINE SULFATE IVP PRN (17:15)
[2020-07-08 20:54] LABS: BASOPHILS % (AUTO) 0.5 % (0.2-1.0); EOSINOPHILS # (AUTO) 0.2 x10^3/uL (0.0-0.2); EOSINOPHILS % (AUTO) 2.3 % (0.9-2.9); HEMATOCRIT 36.9 % (36.0-47.0); HEMOGLOBIN 12.6 g/dL (12.0-16.0); LYMPHOCYTES # (AUTO) 1.5 X10^3/uL (1.3-2.9); LYMPHOCYTES % (AUTO) 22.8 % (21.0-51.0); MEAN CORPUSCULAR HEMOGLOBIN 28.6 pg (27.0-34.0); MEAN PLATELET VOLUME 8.3 fL (7.4-11.0); MONOCYTES # (AUTO) 0.7 x10^3/uL (0.3-0.8); NEUTROPHILS # (AUTO) 4.2 x10^3/uL (2.2-4.8); NEUTROPHILS % (AUTO) 63.4 % (42.0-75.0); PLATELET COUNT 192 X10^3/uL (150.0-450.0); RED BLOOD COUNT 4.39 X10^6/uL (3.5-5.4); RED CELL DISTRIBUTION WIDTH 15.1 % (11.6-16.5); WHITE BLOOD COUNT 6.6 X10^3/uL (3.6-10.0)
[2020-07-08] MEDS: NS 1000 ML 1,000 ML IV SCH (21:05)
[2020-07-08 21:19] LABS: ALANINE AMINOTRANSFERASE 18 Units/L (12-78); ALBUMIN 3.1 g/dL (3.4-5.0); ALKALINE PHOSPHATASE 101 Units/L (46-116); ASPARTATE AMINO TRANSFERASE 24 Units/L (15-37); BLOOD UREA NITROGEN 18 mg/dL (7-18); CALCIUM 8.7 mg/dL (8.5-10.1); CARBON DIOXIDE 25.8 mmol/L (21-32); CHLORIDE 111 mmol/L (98-107); CKMB % 1.8 % (<4); COR CA(FOR HYPOALB) 9.4 mg/dL (8.5-10.1); COR NA(FOR HYPERGLY) 146 mmol/L (136-145); CREATINE KINASE 94 Units/L (26-192); CREATINE KINASE MB 1.7 ng/mL (0-4.0); CREATININE 1.41 mg/dL (0.55-1.02); SODIUM 146 mmol/L (136-145); TOTAL PROTEIN 6.4 g/dL (6.4-8.2); TROPONIN I < 0.02 ng/mL (0-1.5); eGFR NON BLACK RACES 38 (>60)
[2020-07-09 01:14] LABS: CKMB % 1.7 % (<4); CREATINE KINASE 101 Units/L (26-192); CREATINE KINASE MB 1.7 ng/mL (0-4.0); TROPONIN I < 0.02 ng/mL (0-1.5)
[2020-07-09 05:12] LABS: BASOPHILS % (AUTO) 0.4 % (0.2-1.0); EOSINOPHILS # (AUTO) 0.2 x10^3/uL (0.0-0.2); EOSINOPHILS % (AUTO) 2.5 % (0.9-2.9); HEMATOCRIT 37.9 % (36.0-47.0); LYMPHOCYTES # (AUTO) 2.2 X10^3/uL (1.3-2.9); LYMPHOCYTES % (AUTO) 34.7 % (21.0-51.0); MEAN CORPUSCULAR HEMOGLOBIN 28.5 pg (27.0-34.0); MEAN CORPUSCULAR HGB CONC 34.4 g/dL (33.0-35.0); MEAN CORPUSCULAR VOLUME 82.9 fL (80.0-100.0); MEAN PLATELET VOLUME 8.7 fL (7.4-11.0); MONOCYTES # (AUTO) 0.8 x10^3/uL (0.3-0.8); MONOCYTES % (AUTO) 11.7 % (0.0-13.0); NEUTROPHILS # (AUTO) 3.3 x10^3/uL (2.2-4.8); NEUTROPHILS % (AUTO) 50.7 % (42.0-75.0); PLATELET COUNT 191 X10^3/uL (150.0-450.0); RED BLOOD COUNT 4.58 X10^6/uL (3.5-5.4); RED CELL DISTRIBUTION WIDTH 15.1 % (11.6-16.5); WHITE BLOOD COUNT 6.4 X10^3/uL (3.6-10.0)
[2020-07-09 05:35] LABS: ALANINE AMINOTRANSFERASE 17 Units/L (12-78); ALBUMIN 3.2 g/dL (3.4-5.0); ALKALINE PHOSPHATASE 104 Units/L (46-116); ASPARTATE AMINO TRANSFERASE 25 Units/L (15-37); BLOOD UREA NITROGEN 17 mg/dL (7-18); CARBON DIOXIDE 25.6 mmol/L (21-32); CHLORIDE 112 mmol/L (98-107); CKMB % 2.1 % (<4); COR CA(FOR HYPOALB) 9.6 mg/dL (8.5-10.1); CREATINE KINASE 112 Units/L (26-192); CREATINE KINASE MB 2.3 ng/mL (0-4.0); CREATININE 1.24 mg/dL (0.55-1.02); SODIUM 148 mmol/L (136-145); TOTAL PROTEIN 6.7 g/dL (6.4-8.2); TROPONIN I 0.12 ng/mL (0-1.5); eGFR NON BLACK RACES 44 (>60)
--- NOTE | 2020-07-09 06:11 | RAD ---
HISTORYcongestion, feverSTUDYCHEST, 1 [id number] view of the chestFINDINGSThe cardiac and mediastinal contours are within normal limits. The lungs are clear without focal consolidation or segmental collapse. No pleural effusion or pneumothorax. Soft tissue attenuation limits evaluation.IMPRESSIONNo acute pulmonary process.Electronically signed by: Rudolph Goddard (Jul 09, 2020 06:09:44)
[2020-07-09 08:30] VITALS: BP 163/66
[2020-07-09 09:31] VITALS: BMI 31.9
[2020-07-09 09:42] LABS: CKMB % 1.9 % (<4); CREATINE KINASE 113 Units/L (26-192); CREATINE KINASE MB 2.1 ng/mL (0-4.0); TROPONIN I < 0.02 ng/mL (0-1.5)
[2020-07-09] MEDS: NS 1000 ML 1,000 ML IV SCH (10:42)
== END 2020-07-09 12:50 ==
LOC: ICU 06:50 → SURG1 06:50
PROVIDERS: ADMIT Surgery; ATTEND Internal Medicine
DX: R94.31 Abnormal electrocardiogram [ECG] [EKG]; K62.5 Hemorrhage of anus and rectum; K64.1 Second degree hemorrhoids; K59.09 Other constipation; R50.9 Fever, unspecified; R00.1 Bradycardia, unspecified; K64.2 Third degree hemorrhoids

== ENCOUNTER 2021-03-30 10:36 | Inpatient (IN) ==
--- NOTE | 2021-03-30 11:07 | DR.AMS ---
HPI Time Seen Time Seen by Provider: 03/30/21 11:03 HPI Comment HPI Comment: [place] RESPONDING TO PAINFULL STIMULI. SHE WAS NOT RESPONDING TO STAFF. DENIES VOMITING, DIARRHEA, TRAUMA OR FEVER. PATIENT IS NOT ANSWERING ER STAFF. Complaint Cheif Complaint Doctors Comments: FROM [place] WITH AMS. COVID-19 Coronavirus risk:travel/contact w/high risk person: No Has patient experienced Coronavirus symptoms: No Reviewed Nurses Notes Reviewed: Yes Source History Provided: [facility] Mode of Arrival Mode of Arrival: Stretcher Timing Came On: Suddenly Duration Duration: Constant Duration: Hours Quality Quality: Decreased Alertness Severity Severity: Moderate Context Recent: None History Of: Diabetes Associated Signs and Symptoms Associated Signs and Symptoms: Change in Behavior and Decreased LOC PMH PMH Past Medical History: Arthritis, Coronary Artery Disease, Dementia, Depression, Dyslipidemia, GERD, Hypertension and Hypothyroidism Past Surgical History: No Surgical History: Ortho Surgery Social History Do you use any recreational Drugs:: No ROS Review of Systems Constitutional: No Symptoms Reported and See HPI; negative Fever Eyes: No Symptoms Reported and See HPI ENTM: No Symptoms Reported and See HPI Respiratoy: See HPI and Short of Breath; negative Wheezing Cardiovascular: No Symptoms Reported and See HPI Gastrointestinal/Abdominal: No Symptoms Reported and See HPI; negative Diarrhea and Vomiting Genitourinary: No Symptoms Reported and See HPI Neurological: See HPI and Other (AMS, RESPOND TO PAINFULL STIMULI.) Musculoskeletal: No Symptoms Reported and See HPI Integumentary: No Symptoms Reported, See HPI and Dryness Hematologic/Lymphatic: No Symptoms Reported and See HPI Endocrine: No Symptoms Reported and See HPI Psychiatric: No Symptoms Reported and See HPI All Other Systems: Reviewed and Negative PE Vitals Vital Signs: Temp Pulse Resp BP BP Pulse Ox 03/30/21 12:15 45 L 12 100 03/30/21 12:04 51 L 114/62 03/30/21 12:00 48 L 03/30/21 11:45 57 L 03/30/21 11:42 58 L 03/30/21 10:46 97.6 F 58 L 16 90/50 98 12/17/20 10:43 130/67 08/27/20 21:26 137/59 General Limitations: Altered Mental Status General Appearance: In Distress Head Head Exam: Normal Inspection, Atraumatic and Normocephalic Head Exam Physical: Other (NONE NOTED.) Eyes Eye exam: Normal Appearance; negative Scleral Icterus and Conjunctival Injection Pupils: Regular, Round: Bilateral and Reactive: Bilateral ENT ENT Exam: Normal Exam, Normal Oropharynx, Normal External Ear Exam and TM's Normal Bilaterally External Ear Exam: Normal External Inspection TM/Canal Exam: Bilateral: Normal Nose Exam: Normal Nose Exam Mouth Exam: Normal Inspection; negative Lip Swelling and Tongue Swelling Throat Exam: Normal Inspection; negative Tonsillar Erythema, Tonsillomegaly and Tonsillar Exudate Neck Neck Exam: Normal Inspection and Trachea Midline; negative Tenderness Chest Chest Inspection: Normal Inspection and Symmetric Chest Wall Rise Respiratory Respiratory Exam: Normal Lung Sounds Bilat; negative Accessory Muscle Use and Respiratory Distress Respiratory Exam: Bilateral: Rhonchi and Lower: Rhonchi Cardiovascular Cardiovascular Exam: Regular Rate, Normal Rhythm and Normal Heart Sounds; negati ve Systolic Murmur and Diastolic Murmur Abdominal Exam Abdominal Exam: Normal Inspection, Normal Bowel Sounds and Soft Extremities Extremities Exam: Normal Inspection and Normal Capillary Refill Back Back Exam: Normal Inspection Neurological Neurological Exam: Other (RESPOND TO PAINFULL STIMULI.) Speech: Other (RESPOND TO PAINFULL STIMULI.) Cranial Nerve Exam: Gag reflex (XI): Normal Upper Motor Neuron Exam: Babinski Sign: Normal Psychological Psychiatric Exam: Other (RESPOND TO PAINFULL STIMULI.) Skin Skin Exam: Dry MDM Differential Diagnosis Metabolic: Dehydration, Hypercalcemia, Hypernatremia, Hypoglycemia and Hyponatremia Structural: CVA and Mass Lesion Infectious: Sepsis and UTI COURSE Treatment Treatment: SEE ORDERS NOTED WHILE PATIENT IN ER. NS 1L IV, ROCEPHIN 1GM IVPB GIVEN PATIENT WHILE IN ER. LABS AND EKG AND XRAY REPORTS DISCUSSED WITH PATIENT WHILE IN ER. HE WAS ADMITTED TO HOSPITAL FOR FURTHER MANAGEMENT. Consultation Consultation Comments: DISCUSSED WITH DR. RAMIREZ WHILE IN ER. HE ADMITTED JEANINE Melendez. Education/Counseling Education/Counseling: Patient Educated On: Diagnosis ROR Labs Reviewed Laboratory Results Reviewed?: Yes Result Diagrams: 04/07/21 05:23 04/07/21 05:23 Laboratory: 03/30/21 11:20 Blood Blood Culture - Final 03/30/21 11:10 Blood Blood Culture - Final 03/30/21 11:40 Urine,Catheterized Urine Culture - Final Escherichia Coli Escherichia Coli#2 Klebsiella Pneumoniae WBC 11.8 X10^3/uL (3.6-10.0) H 03/30/21 11:20 RBC 4.87 X10^6/uL (3.5-5.4) 03/30/21 11:20 Hgb 13.5 g/dL (12.0-16.0) 03/30/21 11:20 Hct 40.7 % (36.0-47.0) 03/30/21 11:20 MCV 83.4 fL (80.0-100.0) 03/30/21 11:20 MCH 27.6 pg (27.0-34.0) 03/30/21 11:20 MCHC 33.1 g/dL (33.0-35.0) 03/30/21 11:20 RDW 15.9 % (11.6-16.5) 03/30/21 11:20 Plt Count 234 X10^3/uL (150.0-450.0) 03/30/21 11:20 MPV 9.2 fL (7.4-11.0) 03/30/21 11:20 Neut % (Auto) 67.9 % (42.0-75.0) 03/30/21 11:20 Lymph % (Auto) 19.2 % (21.0-51.0) L 03/30/21 11:20 [place] % (Auto) 11.4 % (0.0-13.0) 03/30/21 11:20 Eos % (Auto) 1.2 % (0.9-2.9) 03/30/21 11:20 Baso % (Auto) 0.3 % (0.2-1.0) 03/30/21 11:20 Neut # (Auto) 8.0 x10^3/uL (2.2-4.8) H 03/30/21 11:20 Lymph # (Auto) 2.3 X10^3/uL (1.3-2.9) 03/30/21 11:20 [place] # (Auto) 1.3 x10^3/uL (0.3-0.8) H 03/30/21 11:20 Eos # (Auto) 0.1 x10^3/uL (0.0-0.2) 03/30/21 11:20 Baso # (Auto) 0.0 X10^3/uL (0.0-0.1) 03/30/21 11:20 Absolute Nucleated RBC 0.1 /100WBC 03/30/21 11:20 Sodium 158 mmol/L (136-145) H* 03/30/21 11:20 Corrected Sodium TNP 03/30/21 11:20 Potassium 4.2 mmol/L (3.5-5.1) 03/30/21 11:20 Chloride 117 mmol/L (98-107) H* 03/30/21 11:20 Carbon Dioxide 30.0 mmol/L (21-32) 03/30/21 11:20 BUN 58 mg/dL (7-18) H 03/30/21 11:20 Creatinine 3.26 mg/dL (0.55-1.02) H 03/30/21 11:20 Est GFR (MDRD) Af Amer 17 (>60) L 03/30/21 11:20 Est GFR (MDRD) Non-Af 14 (>60) L 03/30/21 11:20 Glucose 104 mg/dL (65-99) H 03/30/21 11:20 POC Glucose (mg/dL) 77 mg/dL (65-99) 03/30/21 11:18 Lactic Acid 2.5 mmol/L (0.4-2.0) H 03/30/21 11:20 Calcium 9.3 mg/dL (8.5-10.1) 03/30/21 11:20 Corrected Calcium TNP 03/30/21 11:20 Total Bilirubin 0.70 mg/dL (0.2-1.0) 03/30/21 11:20 AST 30 Units/L (15-37) 03/30/21 11:20 ALT 20 Units/L (12-78) 03/30/21 11:20 Alkaline Phosphatase 96 Units/L (46-116) 03/30/21 11:20 Creatine Kinase 121 Units/L (26-192) 03/30/21 11:20 CK-MB (CK-2) 3.3 ng/mL (0-4.0) 03/30/21 11:20 CK/CKMB % Calc 2.7 % (<4) 03/30/21 11:20 Troponin I High Sens 43.1 ng/L (4.0-60.0) 03/30/21 11:20 Total Protein 7.2 g/dL (6.4-8.2) 03/30/21 11:20 Albumin 3.5 g/dL (3.4-5.0) 03/30/21 11:20 Globulin 3.7 g/dL (2.5-4.5) 03/30/21 11:20 Albumin/Globulin Ratio 0.9 Ratio (1.1-2.1) L 03/30/21 11:20 Specimen Type Catherized urine 03/30/21 11:40 Urine Color Yellow (YELLOW) 03/30/21 11:40 Urine Appearance Clear (CLEAR) 03/30/21 11:40 Urine pH 5.0 (5.0 - 8.0) 03/30/21 11:40 Ur Specific [place] 1.020 (1.000-1.030) 03/30/21 11:40 Urine Protein 1+ (NEGATIVE) 03/30/21 11:40 Urine Glucose (UA) Negative (NEGATIVE) 03/30/21 11:40 Urine Ketones Negative (NEGATIVE) 03/30/21 11:40 Urine Occult Blood 1+ (NEGATIVE) 03/30/21 11:40 Urine Nitrite Negative (NEGATIVE) 03/30/21 11:40 Urine Bilirubin 1+ (NEGATIVE) 03/30/21 11:40 Urine Urobilinogen 1+ (NORMAL) 03/30/21 11:40 Ur Leukocyte Esterase 2+ (NEGATIVE) 03/30/21 11:40 Urine RBC 3-5 /HPF (0-3) A 03/30/21 11:40 Urine WBC 3-5 /HPF (0-5) 03/30/21 11:40 Ur Squamous Epith Cells Rare /HPF (NEGATIVE) 03/30/21 11:40 Amorphous Sediment 1+ /HPF (NEGATIVE) 03/30/21 11:40 Urine Bacteria 1+ /HPF (NEGATIVE) 03/30/21 11:40 Ur Culture Indicated? Yes/culture set up 03/30/21 11:40 SARS-CoV-2 (PCR) Negative (NEGATIVE) 03/30/21 12:25 Influenza Type A (PCR) Negative (NEGATIVE) 03/30/21 12:25 Influenza Type B (PCR) Negative (NEGATIVE) 03/30/21 12:25 RSV (PCR) Negative (NEGATIVE) 03/30/21 12:25 XRAY XRAY Interpreted by: Radiologist (REPORT NOTED.) and Self EKG Rate: 67 [place]: Normal Rhythm: PVCs Block: None Hypertrophy: None ST: Old, Ant and Infarct Opioid Opioid Risk Tool Age (Sharif box if 16-45): No History of Preadolescent Sexual Abuse: No Total: 0 Total Score Risk Category: Low Risk Copyright: Oswaldo COHN predicting aberrant behaviors Diagnosis Discharge Problem: Acute hypernatremia, Bronchitis, Acute renal insufficiency, Acute dehydration UTI (urinary tract infection) Qualifiers: Urinary tract infection type: site unspecified Hematuria presence: with hematuria Qualified Code(s): N39.0 - Urinary tract infection, site not specified Altered mental state Qualifiers: Altered mental status type: unspecified Qualified Code(s): R41.82 - Altered mental status, unspecified Instructions Instructions: Bradycardia, Adult Forms: Excuse From Work or School Precautions for COVID19 [facility] Social Distancing
--- NOTE | 2021-03-30 11:39 | RAD ---
HISTORY: [Altered mental status]. [Dyspnea].[Single portable view] of the chest.Comparison: [Chest radiograph dated October 24, 2020].Findings:The trachea is midline. The cardiac silhouette is enlarged but stable. There are diffusely increased interstitial opacities seen, suggesting [a bronchitis/bronchiolitis]. The lungs [are otherwise clear without focal infiltrate or effusion]. The bony thorax [is unremarkable].IMPRESSION:Findings suggesting a widespread bronchiolitis/bronchitis, possibly chronic.Enlarged but stable cardiac silhouette. No lobar pneumonia or pleural effusion seen.Electronically signed by: YANICK CRUZ III (Mar 30, 2021 11:37:52)
[2021-03-30 11:44] LABS: BASOPHILS % (AUTO) 0.3 % (0.2-1.0); EOSINOPHILS # (AUTO) 0.1 x10^3/uL (0.0-0.2); EOSINOPHILS % (AUTO) 1.2 % (0.9-2.9); HEMATOCRIT 40.7 % (36.0-47.0); HEMOGLOBIN 13.5 g/dL (12.0-16.0); LYMPHOCYTES # (AUTO) 2.3 X10^3/uL (1.3-2.9); LYMPHOCYTES % (AUTO) 19.2 % (21.0-51.0); MEAN CORPUSCULAR HEMOGLOBIN 27.6 pg (27.0-34.0); MEAN CORPUSCULAR HGB CONC 33.1 g/dL (33.0-35.0); MEAN CORPUSCULAR VOLUME 83.4 fL (80.0-100.0); MEAN PLATELET VOLUME 9.2 fL (7.4-11.0); MONOCYTES # (AUTO) 1.3 x10^3/uL (0.3-0.8); MONOCYTES % (AUTO) 11.4 % (0.0-13.0); NEUTROPHILS % (AUTO) 67.9 % (42.0-75.0); RED BLOOD COUNT 4.87 X10^6/uL (3.5-5.4); RED CELL DISTRIBUTION WIDTH 15.9 % (11.6-16.5); WHITE BLOOD COUNT 11.8 X10^3/uL (3.6-10.0)
[2021-03-30 11:51] LABS: BILIRUBIN,URINE 1+ (NEGATIVE); BLOOD/HEMOGLOBIN,URINE 1+ (NEGATIVE); GLUCOSE, URINE NEGATIVE (NEGATIVE); KETONES,URINE NEGATIVE (NEGATIVE); LEUKOCYTE ESTERASE ,URINE 2+ (NEGATIVE); NITRITES,URINE NEGATIVE (NEGATIVE); PROTEIN,URINE 1+ (NEGATIVE); UROBILINOGEN,URINE 1+ (NORMAL)
[2021-03-30 11:53] LABS: APPEARANCE,URINE CLEAR (CLEAR); COLOR,URINE YELLOW (YELLOW)
[2021-03-30 12:00] LABS: BACTERIA,URINE 1+ /HPF (NEGATIVE); SQUAMOUS EPITHELIAL CELL,UR RARE /HPF (NEGATIVE)
[2021-03-30 12:17] LABS: LACTIC ACID 2.5 mmol/L (0.4-2.0)
[2021-03-30] MEDS ORDERED: NS 1,000 ML IV 1,000 ML ONE (12:18)
[2021-03-30 12:28] LABS: ALANINE AMINOTRANSFERASE 20 Units/L (12-78); ALBUMIN 3.5 g/dL (3.4-5.0); ALKALINE PHOSPHATASE 96 Units/L (46-116); ASPARTATE AMINO TRANSFERASE 30 Units/L (15-37); BLOOD UREA NITROGEN 58 mg/dL (7-18); CALCIUM 9.3 mg/dL (8.5-10.1); CKMB % 2.7 % (<4); CREATINE KINASE 121 Units/L (26-192); CREATINE KINASE MB 3.3 ng/mL (0-4.0); CREATININE 3.26 mg/dL (0.55-1.02); TOTAL PROTEIN 7.2 g/dL (6.4-8.2); eGFR NON BLACK RACES 14 (>60)
[2021-03-30 12:30] LABS: SODIUM 158 mmol/L (136-145)
[2021-03-30 12:31] LABS: CHLORIDE 117 mmol/L (98-107)
[2021-03-30] MEDS ORDERED: NS 1,000 ML IV 1,000 ML IV SCH (13:00)
[2021-03-30] MEDS ORDERED: ROCEPHIN 1 GRAM IV PREMIX 1 G/50 ML IV.SOLN. IV ONE (13:11)
[2021-03-30] MEDS ORDERED: NS 100 ML IV 100 ML ONE (13:23)
[2021-03-30] MEDS ORDERED: ROCEPHIN VIAL 1 GRAM ONE (13:23)
[2021-03-30] MEDS: NS 1,000 ML IV 1,000 ML IV SCH (15:24)
[2021-03-30] MEDS ORDERED: PHARMACY CONSULT LTC MEDICATIONS XX SCH (17:00)
[2021-03-30] MEDS ORDERED: ZOFRAN INJ 4 MG VIAL IVP PRN (21:53)
[2021-03-31 00:11] LABS: CREATINE KINASE MB 5.9 ng/mL (0-4.0)
[2021-03-31] MEDS: NS 1,000 ML IV 1,000 ML IV SCH (04:00)
[2021-03-31 05:27] LABS: BASOPHILS % (AUTO) 0.3 % (0.2-1.0); EOSINOPHILS # (AUTO) 0.2 x10^3/uL (0.0-0.2); EOSINOPHILS % (AUTO) 2.3 % (0.9-2.9); HEMATOCRIT 36.4 % (36.0-47.0); HEMOGLOBIN 12.2 g/dL (12.0-16.0); LYMPHOCYTES # (AUTO) 2.1 X10^3/uL (1.3-2.9); LYMPHOCYTES % (AUTO) 22.4 % (21.0-51.0); MEAN CORPUSCULAR HGB CONC 33.6 g/dL (33.0-35.0); MEAN CORPUSCULAR VOLUME 83.2 fL (80.0-100.0); MEAN PLATELET VOLUME 9.6 fL (7.4-11.0); MONOCYTES # (AUTO) 1.1 x10^3/uL (0.3-0.8); MONOCYTES % (AUTO) 11.8 % (0.0-13.0); NEUTROPHILS # (AUTO) 5.8 x10^3/uL (2.2-4.8); NEUTROPHILS % (AUTO) 63.2 % (42.0-75.0); RED BLOOD COUNT 4.37 X10^6/uL (3.5-5.4); RED CELL DISTRIBUTION WIDTH 16.5 % (11.6-16.5); WHITE BLOOD COUNT 9.2 X10^3/uL (3.6-10.0)
[2021-03-31 06:20] LABS: ALBUMIN 2.9 g/dL (3.4-5.0); CALCIUM 8.3 mg/dL (8.5-10.1); CARBON DIOXIDE 28.5 mmol/L (21-32); CKMB % 1.9 % (<4); COR CA(FOR HYPOALB) 9.2 mg/dL (8.5-10.1); CREATININE 2.82 mg/dL (0.55-1.02); MAGNESIUM 2.6 mg/dL (1.7-2.9); TOTAL PROTEIN 6.3 g/dL (6.4-8.2)
[2021-03-31 06:29] LABS: CREATINE KINASE MB 4.8 ng/mL (0-4.0)
[2021-03-31] MEDS ORDERED: ULTRAM PO PRN (08:10)
--- NOTE | 2021-03-31 08:25 | DR.H&P ---
H&P - History & Physical for Day of: H&P Date: 03/30/21 - Chief Complaint Chief Complaint: AMS, DECREASED RESPONSIVENESS - History of Present Illness History of Present Illness: IS A 81 YEAR OLD PATIENT OF OURS. SHE IS A RESIDENT OF [facility]. SHE PRESENTED TO THE ER FROM THE ALF WITH STAFF REPORTING THAT PATIENT HAS HAD ALTERED MENTAL STATUS AND DECREASED RESPONSIVENESS. THEY ALSO REPORTED THAT PATIENTS OXYGEN SATURATIONS WERE IN THE 80s ON ROOM AIR. THEY APPLIED OXYGEN VIA NASAL CANNULA AT 2 LPM AND SATURATIONS INCREASED TO THE 90s. ON ARRIVAL, PATIENT WAS NOTED TO BE LETHARGIC. SHE DID OPEN EYES TO VERBAL STIMULI, BUT WAS DISORIENTED AND UNABLE TO FOLLOW COMMANDS. HER PMH INCLUDES: CAD, CHF, CARDIAC ARRHYTHMIA, HTN, HYPERLIPIDEMIA, DEMENTIA, ALZHEIMERS, GERD, DIVERTICULOSIS, CHRONIC CONSTIPATION, OSTEOARTHRITIS, DEPRESSION, SCHIZOPHRENIA. UNKNOWN SURGICAL HISTORY. ON ARRIVAL, HER VITALS WERE 97.6-58-16-98%-90/50. LABS WERE OBTAINED. WBC 11.8, HGB 13.5, HCT 40.7, SODIUM 158, POTASSIUM 4.2, BUN 58, CREATININE 3.26, GLUCOSE 104, LACTIC ACID 2.5, TOTAL PROTEIN 7.2, ALBUMIN 3.5. CARDIAC ENZYMES WITHIN NORMAL LIMITS. URINALYSIS REVEALED: WBC 3-5, RBC 3-5, BACTERIA 1+, LEUKOCYTES 2+. A URINE CULTURE AND BLOOD CULTURES WERE SET UP. COVID, INFLUENZA, AND RSV WERE NEGATIVE. A CHEST XRAY WAS OBTAINED AND REVEALED: Findings suggesting a widespread bronchiolitis/bronchitis, possibly chronic. Enlarged but stable cardiac silhouette. No lobar pneumonia or pleural effusion seen. EKG REVEALED: SINUS RHYTHM WITH HR 67. IN THE ER, SHE WAS GIVEN ROCEPHIN 1G IV X 1. SHE WAS ADMITTED TO THE HOSPTIAL FOR FURTHER EVALUATION AND TREATMENT OF HYPERNATREMIA, RENAL INSUFFICIENCY, UTI, BRONCHITIS, AND ALTERED MENTAL STATUS. SHE WAS STARTED ON NORMAL SALINE AT 75 ML/HR, ROCPEHIN 1G IV DAILY, ZOFRAN 4MG IV Q6H PRN, AND HER HOME MEDICATIONS WERE RESUMED. OTHERWISE, WE PLAN TO FOLLOW UP WITH AM LABS AND CONTINUE TO MONITOR. TIME SPENT ON CLINICAL ASSESSMENT, REVIEWING LABS AND IMAGING, DECISION MAKING, AND DOCUMENTATION GREATER THAN 75 MINUTES. - Past Medical History Past Medical History: Coronary Artery Disease, Hypertension, Dyslipidemia, Dementia, Depression, Hypothyroidism, GERD, Arthritis - Past Surgical History Surgical History: Ortho Surgery - Family History Family Medical History: Hypertension - Social History Does any household member use tobacco: No Alcohol Use: None Drug Use: None - Medications Home Medications: propoxyphene [From Darvon] Allergy (Verified 03/30/21 10:36) CONTINUE taking the following medications gabapentin 100 mg PO HS 03/30/21 [History] lidocaine 1 applic TOPICAL TID 03/30/21 [History] nystatin 10 ml PO QID 03/30/21 [History] [id number] [Preparation H Maximum Strength] 1 applic TOPICAL TID 03/30/21 [History] potassium chloride 10 meq PO DAILY 03/30/21 [History] tramadol 50 mg PO BID 03/30/21 [History] - Review of Systems Constitutional: Weakness Eyes: No Symptoms Reported ENT: No Symptoms Reported Respiratory: No Symptoms Reported Cardiovascular: No Symptoms Reported Gastrointestinal: No Symptoms Reported Genitourinary: No Symptoms Reported Musculoskeletal: No Symptoms Reported Skin: No Symptoms Reported Neurological: See HPI, Weakness, Confusion - Physical Exam Vital Signs: Temperature 97.5 F Pulse Rate [Right Radial] 48 Pulse Rate 45 Respiratory Rate 20 Blood Pressure [Right Arm] 132/65 Blood Pressure 114/62 O2 Sat by Pulse Oximetry 99 Oriented: Not Oriented Eyes: Normal Ear: Normal Nose: Normal Throat: Normal Respiratory: Diminished Throughout Cardiovascular: Bradycardia : Normal Auscultation: Bowel Sounds: Normal Palpation: Normal Tenderness: Normal Skin: Decreased Turgur Musculoskeletal: Normal Psychiatric: Normal Mood Description: Flat Affect: Flat Speech Pattern: Inappropriate - Assessment/Plan (1) Hypernatremia Status: Acute Plan: ADMIT, NORMAL SALINE AT 75 ML/HR, ROCPEHIN 1G IV DAILY, ZOFRAN 4MG IV Q6H PRN, AND HER HOME MEDICATIONS WERE RESUMED. (2) Renal insufficiency Status: Acute (3) UTI (urinary tract infection) Qualifiers: Urinary tract infection type: acute cystitis Hematuria presence: with hematuria Qualified Code(s): N30.01 - Acute cystitis with hematuria Status: Acute (4) Bronchitis Status: Acute (5) Altered mental status Qualifiers: Altered mental status type: transient alteration of awareness Qualified Code(s): R40.4 - Transient alteration of awareness Status: Acute - Allergies Allergies/Adverse Reactions: Allergies Allergy/AdvReac Type Severity Reaction Status Date / Time propoxyphene [From Darvon] Allergy Verified 03/30/21 10:36
[2021-03-31] MEDS: ROCEPHIN 1 GRAM IV PREMIX 1 G/50 ML IV.SOLN. IV SCH (08:29)
[2021-03-31] MEDS ORDERED: PLAVIX PO SCH (09:00)
[2021-03-31] MEDS ORDERED: ASPIRIN EC 81 MG PO SCH (09:00)
[2021-03-31] MEDS ORDERED: NS 1/2 1,000 ML IV 1,000 ML IV SCH (09:00)
[2021-03-31] MEDS ORDERED: NYSTATIN SUSP PO SCH (09:00)
[2021-03-31] MEDS: PEPCID TAB 20 MG PO SCH (10:00)
[2021-03-31] MEDS ORDERED: LEXAPRO ONE (10:03)
[2021-03-31] MEDS: D5W 1,000 ML IV 1,000 ML IV SCH (10:08)
[2021-03-31] MEDS: TAB-A-VITE PO SCH (10:10)
[2021-03-31] MEDS: SYNTHROID 125 mcg TAB PO SCH (10:10)
[2021-03-31] MEDS: PROTONIX TAB 40 MG PO SCH ×2 (10:10→22:10)
[2021-03-31] MEDS: LEXAPRO PO SCH (10:10)
[2021-03-31] MEDS: VASOTEC TAB 20 MG PO SCH (10:10)
[2021-03-31] MEDS: COLACE CAP 100 MG PO SCH ×2 (10:11→21:50)
[2021-03-31] MEDS: POTASSIUM CHLORIDE LIQ 20 MEQ UDC PO SCH (10:12)
[2021-03-31] MEDS: CARAFATE PO SCH ×2 (14:33→22:09)
[2021-03-31] MEDS: PREPARATION H OINT EXT SCH (22:07)
[2021-03-31] MEDS: LIPITOR TAB 10 MG PO SCH (22:09)
[2021-03-31] MEDS: NEURONTIN CAP 100 MG PO SCH (22:10)
[2021-04-01] MEDS: D5W 1,000 ML IV 1,000 ML IV SCH ×3 (01:37→17:39)
[2021-04-01 04:56] LABS: BASOPHILS % (AUTO) 0.3 % (0.2-1.0); EOSINOPHILS # (AUTO) 0.2 x10^3/uL (0.0-0.2); EOSINOPHILS % (AUTO) 3.2 % (0.9-2.9); HEMOGLOBIN 9.9 g/dL (12.0-16.0); LYMPHOCYTES % (AUTO) 31.2 % (21.0-51.0); MEAN CORPUSCULAR HEMOGLOBIN 28.3 pg (27.0-34.0); MEAN CORPUSCULAR VOLUME 83.3 fL (80.0-100.0); MEAN PLATELET VOLUME 9.2 fL (7.4-11.0); MONOCYTES # (AUTO) 0.8 x10^3/uL (0.3-0.8); MONOCYTES % (AUTO) 12.6 % (0.0-13.0); NEUTROPHILS # (AUTO) 3.4 x10^3/uL (2.2-4.8); NEUTROPHILS % (AUTO) 52.7 % (42.0-75.0); RED BLOOD COUNT 3.48 X10^6/uL (3.5-5.4); WHITE BLOOD COUNT 6.4 X10^3/uL (3.6-10.0)
[2021-04-01 05:18] LABS: ALANINE AMINOTRANSFERASE 14 Units/L (12-78); ALBUMIN 2.4 g/dL (3.4-5.0); ALKALINE PHOSPHATASE 68 Units/L (46-116); ASPARTATE AMINO TRANSFERASE 29 Units/L (15-37); BLOOD UREA NITROGEN 47 mg/dL (7-18); CALCIUM 8.2 mg/dL (8.5-10.1); CARBON DIOXIDE 28.6 mmol/L (21-32); COR CA(FOR HYPOALB) 9.5 mg/dL (8.5-10.1); TOTAL PROTEIN 5.2 g/dL (6.4-8.2); eGFR NON BLACK RACES 24 (>60)
[2021-04-01 05:26] LABS: CHLORIDE 116 mmol/L (98-107); SODIUM 151 mmol/L (136-145)
--- NOTE | 2021-04-01 05:45 | RAD ---
HISTORYSOB Relevant Clinical InformationSTUDYCHEST, 1 [id number] trachea is midline. The cardiac silhouette is stable. The lungs are clear without focal infiltrate or effusion. The bony thorax is unremarkable.IMPRESSIONNo acute cardiopulmonary findings .Electronically signed by: Pierre Ann (Apr 01, 2021 05:44:18)
[2021-04-01] MEDS: PREPARATION H OINT EXT SCH ×2 (05:50→07:56)
[2021-04-01] MEDS: CARAFATE PO SCH ×3 (05:50→21:03)
[2021-04-01] MEDS ORDERED: LEXAPRO ONE (08:10)
[2021-04-01] MEDS: ROCEPHIN 1 GRAM IV PREMIX 1 G/50 ML IV.SOLN. IV SCH (08:50)
[2021-04-01] MEDS: TAB-A-VITE PO SCH (08:52)
[2021-04-01] MEDS: SYNTHROID 125 mcg TAB PO SCH (08:52)
[2021-04-01] MEDS: PROTONIX TAB 40 MG PO SCH ×2 (08:52→21:02)
[2021-04-01] MEDS: LEXAPRO PO SCH (08:52)
[2021-04-01] MEDS: COLACE CAP 100 MG PO SCH ×2 (08:52→21:02)
[2021-04-01] MEDS: VASOTEC TAB 20 MG PO SCH (08:52)
[2021-04-01] MEDS: POTASSIUM CHLORIDE LIQ 20 MEQ UDC PO SCH (08:53)
--- NOTE | 2021-04-01 10:32 | PCM.PROG ---
Progress Note - Progress Note for Day of Date of Exam: 04/01/21 - Subjective Subjective: WAS ADMITTED FOR TREATMENT OF HYPERNATREMIA, RENAL INSUFFICIENCY, UTI, BRONCHITIS, AND AMS. HER PMH INCLUDES: CAD, CHF, CARDIAC ARRHYTHMIA, HTN, HYPERLIPIDEMIA, DEMENTIA, ALZHEIMERS, GERD, DIVERTICULOSIS, CHRONIC CONSTIPATION, OSTEOARTHRITIS, DEPRESSION, SCHIZOPHRENIA. TODAY, SHE IS LYING IN BED WITH EYES CLOSED ON MORNING ROUNDS. SHE DOES OPEN EYES TO VERBAL STIMULI, BUT DOES NOT ANSWER QUESTIONS OR FOLLOW COMMANDS. ON EXAMINATION, HEART IS REGULAR IN RATE AND RHYTHM. BILATERAL LUNGS NOTED WITH DIMINISHED LUNG SOUNDS THROUGHOUT. ABDOMEN IS ROUND, SOFT, AND NOTED WITH NORMAL BOWEL SOUNDS IN ALL QUADRANTS. DECREASED SKIN TURGUR NOTED. HER VITALS THIS MORNING ARE: 98.0-65-18-98%-125/61. LABS WERE OBTAINED. ABNORMAL LAB VALUES INCLUDE THE FOLLOWING: RBC 3.48, HGB 9.9, HCT 29.0, SODIUM 151, CHLORIDE 116, BUN 47, CREATININE 2.10, CALCIUM 8.2, TOTAL PROTEIN 5.2, ALBUMIN 2.4. URINE CULTURE REVEALS GROWTH OF E.COLI. SHE IS CURRENTLY RECEIVING D5W AT 75 ML/HR, ROCPEHIN 1G IV DAILY, ZOFRAN 4MG IV Q6H PRN, AND HER HOME MEDICATIONS WERE RESUMED. WE WILL CONTINUE WITH CURRENT PLAN OF CARE TODAY. OTHERWISE, WE PLAN TO FOLLOW UP WITH AM LABS AND CONTINUE TO MONITOR. TIME SPENT ON CLINICAL ASSESSMENT, REVIEWING LABS AND IMAGING, DECISION MAKING, AND DOCUMENTATION GREATER THAN 45 MINUTES. - Past Medical Family Social History Past Med/Fam/Surg Hx: No changes since H&P Allergies: Allergies propoxyphene [From Darvon] Allergy (Verified 03/30/21 10:36) - Review of Systems ROS: No change since H&P - Vital Signs and I&O's Vital Signs: Temperature 98.0 F Pulse Rate [Right Radial] 65 Pulse Rate 45 Respiratory Rate 18 Blood Pressure [Right Arm] 125/61 Blood Pressure 114/62 O2 Sat by Pulse Oximetry 18 Intake and Output: Intake & Output 03/29/21 03/30/21 03/31/21 04/01/21 11:59 11:59 11:59 11:59 Intake Total 1228 / 1228 2629 / 2629 Output Total 325 / 325 525 / 525 Balance 903 / 903 2104 / 2104 - Physical Exam Oriented: Not Oriented Eyes: Normal Ear: Normal Nose: Normal Throat: Normal Respiratory: Generalized, Diminished Cardiovascular: Normal : Normal Auscultation: Bowel Sounds: Normal Palpation: Normal Tenderness: Normal Skin: Decreased Turgur Musculoskeletal: Normal Psychiatric: Normal Mood Description: Flat Affect: Flat Speech Pattern: Aphasic - Laboratory and Diagnostics Result Diagrams: 04/01/21 04:16 04/01/21 04:16 Labs: 03/30/21 11:40 Urine,Catheterized Urine Culture - Preliminary Escherichia Coli Escherichia Coli#2 Laboratory WBC 6.4 X10^3/uL (3.6-10.0) 04/01/21 04:16 RBC 3.48 X10^6/uL (3.5-5.4) L 04/01/21 04:16 Hgb 9.9 g/dL (12.0-16.0) L D 04/01/21 04:16 Hct 29.0 % (36.0-47.0) L 04/01/21 04:16 MCV 83.3 fL (80.0-100.0) 04/01/21 04:16 MCH 28.3 pg (27.0-34.0) 04/01/21 04:16 MCHC 34.0 g/dL (33.0-35.0) 04/01/21 04:16 RDW 16.0 % (11.6-16.5) 04/01/21 04:16 Plt Count 163 X10^3/uL (150.0-450.0) 04/01/21 04:16 MPV 9.2 fL (7.4-11.0) 04/01/21 04:16 Neut % (Auto) 52.7 % (42.0-75.0) 04/01/21 04:16 Lymph % (Auto) 31.2 % (21.0-51.0) 04/01/21 04:16 [place] % (Auto) 12.6 % (0.0-13.0) 04/01/21 04:16 Eos % (Auto) 3.2 % (0.9-2.9) H 04/01/21 04:16 Baso % (Auto) 0.3 % (0.2-1.0) 04/01/21 04:16 Neut # (Auto) 3.4 x10^3/uL (2.2-4.8) 04/01/21 04:16 Lymph # (Auto) 2.0 X10^3/uL (1.3-2.9) 04/01/21 04:16 Terry # (Auto) 0.8 x10^3/uL (0.3-0.8) 04/01/21 04:16 Eos # (Auto) 0.2 x10^3/uL (0.0-0.2) 04/01/21 04:16 Baso # (Auto) 0.0 X10^3/uL (0.0-0.1) 04/01/21 04:16 Absolute Nucleated RBC 0.0 /100WBC 04/01/21 04:16 Sodium 151 mmol/L (136-145) H* 04/01/21 04:16 Corrected Sodium TNP 04/01/21 04:16 Potassium 4.0 mmol/L (3.5-5.1) 04/01/21 04:16 Chloride 116 mmol/L (98-107) H* 04/01/21 04:16 Carbon Dioxide 28.6 mmol/L (21-32) 04/01/21 04:16 BUN 47 mg/dL (7-18) H 04/01/21 04:16 Creatinine 2.10 mg/dL (0.55-1.02) H 04/01/21 04:16 Est GFR (MDRD) Af Amer 29 (>60) L 04/01/21 04:16 Est GFR (MDRD) Non-Af 24 (>60) L 04/01/21 04:16 Glucose 94 mg/dL (65-99) 04/01/21 04:16 POC Glucose (mg/dL) 77 mg/dL (65-99) 03/30/21 11:18 Lactic Acid 0.8 mmol/L (0.4-2.0) 03/31/21 07:26 Calcium 8.2 mg/dL (8.5-10.1) L 04/01/21 04:16 Corrected Calcium 9.5 mg/dL (8.5-10.1) 04/01/21 04:16 Magnesium 2.6 mg/dL (1.7-2.9) 03/31/21 04:37 Total Bilirubin 0.70 mg/dL (0.2-1.0) 04/01/21 04:16 AST 29 Units/L (15-37) 04/01/21 04:16 ALT 14 Units/L (12-78) 04/01/21 04:16 Alkaline Phosphatase 68 Units/L (46-116) 04/01/21 04:16 Creatine Kinase 260 Units/L (26-192) H 03/31/21 04:37 CK-MB (CK-2) 4.8 ng/mL (0-4.0) H* 03/31/21 04:37 CK/CKMB % Calc 1.9 % (<4) 03/31/21 04:37 Troponin I High Sens 39.0 ng/L (4.0-60.0) 03/31/21 04:37 Total Protein 5.2 g/dL (6.4-8.2) L 04/01/21 04:16 Albumin 2.4 g/dL (3.4-5.0) L 04/01/21 04:16 Globulin 2.8 g/dL (2.5-4.5) 04/01/21 04:16 Albumin/Globulin Ratio 0.9 Ratio (1.1-2.1) L 04/01/21 04:16 Specimen Type Catherized urine 03/30/21 11:40 Urine Color Yellow (YELLOW) 03/30/21 11:40 Urine Appearance Clear (CLEAR) 03/30/21 11:40 Urine pH 5.0 (5.0 - 8.0) 03/30/21 11:40 Ur Specific [place] 1.020 (1.000-1.030) 03/30/21 11:40 Urine Protein 1+ (NEGATIVE) 03/30/21 11:40 Urine Glucose (UA) Negative (NEGATIVE) 03/30/21 11:40 Urine Ketones Negative (NEGATIVE) 03/30/21 11:40 Urine Occult Blood 1+ (NEGATIVE) 03/30/21 11:40 Urine Nitrite Negative (NEGATIVE) 03/30/21 11:40 Urine Bilirubin 1+ (NEGATIVE) 03/30/21 11:40 Urine Urobilinogen 1+ (NORMAL) 03/30/21 11:40 Ur Leukocyte Esterase 2+ (NEGATIVE) 03/30/21 11:40 Urine RBC 3-5 /HPF (0-3) A 03/30/21 11:40 Urine WBC 3-5 /HPF (0-5) 03/30/21 11:40 Ur Squamous Epith Cells Rare /HPF (NEGATIVE) 03/30/21 11:40 Amorphous Sediment 1+ /HPF (NEGATIVE) 03/30/21 11:40 Urine Bacteria 1+ /HPF (NEGATIVE) 03/30/21 11:40 Ur Culture Indicated? Yes/culture set up 03/30/21 11:40 SARS-CoV-2 (PCR) Negative (NEGATIVE) 03/30/21 12:25 Influenza Type A (PCR) Negative (NEGATIVE) 03/30/21 12:25 Influenza Type B (PCR) Negative (NEGATIVE) 03/30/21 12:25 RSV (PCR) Negative (NEGATIVE) 03/30/21 12:25 - Plan (1) Hypernatremia Status: Acute Plan: D5W AT 75 ML/HR, ROCPEHIN 1G IV DAILY, ZOFRAN 4MG IV Q6H PRN, AND HER HOME MEDICATIONS WERE RESUMED. (2) Renal insufficiency Status: Acute (3) UTI (urinary tract infection) Status: Acute Qualifiers: Urinary tract infection type: acute cystitis Hematuria presence: with hematuria Qualified Code(s): N30.01 - Acute cystitis with hematuria (4) Bronchitis Status: Acute (5) Altered mental status Status: Acute Qualifiers: Altered mental status type: transient alteration of awareness Qualified Code(s): R40.4 - Transient alteration of awareness
[2021-04-01] MEDS: LOVENOX INJ 30 MG SYR SC SCH (15:05)
[2021-04-01] MEDS: NEURONTIN CAP 100 MG PO SCH (21:02)
[2021-04-01] MEDS: LIPITOR TAB 10 MG PO SCH (21:02)
[2021-04-02] MEDS: CARAFATE PO SCH ×3 (05:29→21:02)
[2021-04-02] MEDS: D5W 1,000 ML IV 1,000 ML IV SCH ×3 (05:29→15:24)
[2021-04-02 06:35] LABS: BASOPHILS % (AUTO) 0.3 % (0.2-1.0); EOSINOPHILS # (AUTO) 0.2 x10^3/uL (0.0-0.2); EOSINOPHILS % (AUTO) 3.6 % (0.9-2.9); HEMATOCRIT 30.2 % (36.0-47.0); HEMOGLOBIN 10.5 g/dL (12.0-16.0); LYMPHOCYTES # (AUTO) 1.7 X10^3/uL (1.3-2.9); LYMPHOCYTES % (AUTO) 32.2 % (21.0-51.0); MEAN CORPUSCULAR HEMOGLOBIN 28.6 pg (27.0-34.0); MEAN CORPUSCULAR HGB CONC 34.8 g/dL (33.0-35.0); MEAN CORPUSCULAR VOLUME 82.2 fL (80.0-100.0); MEAN PLATELET VOLUME 9.3 fL (7.4-11.0); MONOCYTES # (AUTO) 0.6 x10^3/uL (0.3-0.8); MONOCYTES % (AUTO) 11.8 % (0.0-13.0); NEUTROPHILS # (AUTO) 2.7 x10^3/uL (2.2-4.8); NEUTROPHILS % (AUTO) 52.1 % (42.0-75.0); RED BLOOD COUNT 3.67 X10^6/uL (3.5-5.4); WHITE BLOOD COUNT 5.3 X10^3/uL (3.6-10.0)
[2021-04-02 06:49] LABS: ALANINE AMINOTRANSFERASE 15 Units/L (12-78); ALBUMIN 2.5 g/dL (3.4-5.0); ALKALINE PHOSPHATASE 73 Units/L (46-116); ASPARTATE AMINO TRANSFERASE 26 Units/L (15-37); BLOOD UREA NITROGEN 31 mg/dL (7-18); CALCIUM 8.5 mg/dL (8.5-10.1); CARBON DIOXIDE 28.2 mmol/L (21-32); CHLORIDE 112 mmol/L (98-107); COR CA(FOR HYPOALB) 9.7 mg/dL (8.5-10.1); CREATININE 1.38 mg/dL (0.55-1.02); SODIUM 145 mmol/L (136-145); TOTAL PROTEIN 5.6 g/dL (6.4-8.2); eGFR NON BLACK RACES 39 (>60)
[2021-04-02] MEDS ORDERED: LEXAPRO ONE (08:45)
[2021-04-02] MEDS: ROCEPHIN 1 GRAM IV PREMIX 1 G/50 ML IV.SOLN. IV SCH (09:13)
[2021-04-02] MEDS: LOVENOX INJ 30 MG SYR SC SCH (09:15)
[2021-04-02] MEDS: POTASSIUM CHLORIDE LIQ 20 MEQ UDC PO SCH (09:16)
[2021-04-02] MEDS: VASOTEC TAB 20 MG PO SCH (09:16)
[2021-04-02] MEDS: COLACE CAP 100 MG PO SCH ×2 (09:17→21:04)
[2021-04-02] MEDS: TAB-A-VITE PO SCH (09:18)
[2021-04-02] MEDS: SYNTHROID 125 mcg TAB PO SCH (09:18)
[2021-04-02] MEDS: LEXAPRO PO SCH (09:18)
[2021-04-02] MEDS: PROTONIX TAB 40 MG PO SCH ×2 (09:19→21:02)
[2021-04-02] MEDS: PEPCID TAB 20 MG PO SCH (09:23)
--- NOTE | 2021-04-02 11:13 | PCM.PROG ---
Progress Note - Progress Note for Day of Date of Exam: 04/02/21 - Subjective Subjective: WAS ADMITTED FOR TREATMENT OF HYPERNATREMIA, RENAL INSUFFICIENCY, UTI, BRONCHITIS, AND AMS. HER PMH INCLUDES: CAD, CHF, CARDIAC ARRHYTHMIA, HTN, HYPERLIPIDEMIA, DEMENTIA, ALZHEIMERS, GERD, DIVERTICULOSIS, CHRONIC CONSTIPATION, OSTEOARTHRITIS, DEPRESSION, SCHIZOPHRENIA. TODAY, SHE IS ALERT, SITTING UP IN BED ON MORNING ROUNDS. SHE IS DISORIENTED. STAFF REPORTS THAT SHE WAS ABLE TO FEED HERSELF BREAKFAST THIS MORNING. SHE RESPONDS VERBALLY WHEN SPOKEN TO. STAFF ALSO REPORTS THAT SHE HAD MULTIPLE BRADYCARDIC EPISODES THROUGHOUT THE NIGHT. HER HEART RATE DID DROP INTO THE 30s ON MULTIPLE OCCASIONS. SHE DOES HAVE A HISTORY OF BRADYCARDIA. ON EXAMINATION, SHE IS BRADYCARDIC WITH HR IN THE 40s. BILATERAL LUNGS NOTED WITH DIMINISHED LUNG SOUNDS THROUGHOUT. ABDOMEN IS ROUND, SOFT, AND NOTED WITH NORMAL BOWEL SOUNDS IN ALL QUADRANTS. HER VITALS THIS MORNING ARE: 98.0-48-18-100%-147/67. LABS WERE OBTAINED. ABNORMAL LAB VALUES INCLUDE THE FOLLOWING: HGB 10.5, HCT 30.2, CHLORIDE 112, BUN 31, CREATININE 1.38, TOTAL PROTEIN 5.6, ALBUMIN 2.5. URINE CULTURE REVEALS GROWTH OF E.COLI AND KLEBSIELLA PNEUMONIAE. SHE IS CURRENTLY RECEIVING D5W AT 75 ML/HR, ROCPEHIN 1G IV DAILY, ZOFRAN 4MG IV Q6H PRN, AND HER HOME MEDICATIONS WERE RESUMED. WE WILL CONTINUE WITH CURRENT PLAN OF CARE TODAY. OTHERWISE, WE PLAN TO FOLLOW UP WITH AM LABS AND CONTINUE TO MONITOR. TIME SPENT ON CLINICAL ASSESSMENT, REVIEWING LABS AND IMAGING, DECISION MAKING, AND DOCUMENTATION GREATER THAN 45 MINUTES. - Past Medical Family Social History Past Med/Fam/Surg Hx: No changes since H&P Allergies: Allergies propoxyphene [From Darvon] Allergy (Verified 03/30/21 10:36) - Review of Systems ROS: No change since H&P - Vital Signs and I&O's Vital Signs: Temperature 98.0 F Pulse Rate [Left Brachial] 48 Pulse Rate [Right Radial] 64 Pulse Rate 45 Respiratory Rate 18 Blood Pressure [Right Arm] 147/67 Blood Pressure 114/62 O2 Sat by Pulse Oximetry 100 Intake and Output: Intake & Output 03/30/21 03/31/21 04/01/21 04/02/21 11:59 11:59 11:59 11:59 Intake Total 1228 / 1228 2629 / 2629 1196 / 1196 Output Total 325 / 325 525 / 525 1650 / 1650 Balance 903 / 903 2104 / 2104 -454 / -454 - Physical Exam Oriented: Not Oriented Eyes: Normal Ear: Normal Nose: Normal Throat: Normal Respiratory: Generalized, Diminished Cardiovascular: Bradycardia : Normal Auscultation: Bowel Sounds: Normal Tenderness: Normal Skin: Decreased Turgur Musculoskeletal: Normal Psychiatric: Normal Mood Description: Flat Affect: Flat Speech Pattern: Unclear, Delayed - Laboratory and Diagnostics Result Diagrams: 04/02/21 05:16 04/02/21 05:16 Labs: 03/30/21 11:40 Urine,Catheterized Urine Culture - Final Escherichia Coli Escherichia Coli#2 Klebsiella Pneumoniae 03/30/21 11:10 Blood Blood Culture - Preliminary 03/30/21 11:20 Blood Blood Culture - Preliminary Laboratory WBC 5.3 X10^3/uL (3.6-10.0) 04/02/21 05:16 RBC 3.67 X10^6/uL (3.5-5.4) 04/02/21 05:16 Hgb 10.5 g/dL (12.0-16.0) L 04/02/21 05:16 Hct 30.2 % (36.0-47.0) L 04/02/21 05:16 MCV 82.2 fL (80.0-100.0) 04/02/21 05:16 MCH 28.6 pg (27.0-34.0) 04/02/21 05:16 MCHC 34.8 g/dL (33.0-35.0) 04/02/21 05:16 RDW 15.0 % (11.6-16.5) 04/02/21 05:16 Plt Count 157 X10^3/uL (150.0-450.0) 04/02/21 05:16 MPV 9.3 fL (7.4-11.0) 04/02/21 05:16 Neut % (Auto) 52.1 % (42.0-75.0) 04/02/21 05:16 Lymph % (Auto) 32.2 % (21.0-51.0) 04/02/21 05:16 [place] % (Auto) 11.8 % (0.0-13.0) 04/02/21 05:16 Eos % (Auto) 3.6 % (0.9-2.9) H 04/02/21 05:16 Baso % (Auto) 0.3 % (0.2-1.0) 04/02/21 05:16 Neut # (Auto) 2.7 x10^3/uL (2.2-4.8) 04/02/21 05:16 Lymph # (Auto) 1.7 X10^3/uL (1.3-2.9) 04/02/21 05:16 [place] # (Auto) 0.6 x10^3/uL (0.3-0.8) 04/02/21 05:16 Eos # (Auto) 0.2 x10^3/uL (0.0-0.2) 04/02/21 05:16 Baso # (Auto) 0.0 X10^3/uL (0.0-0.1) 04/02/21 05:16 Absolute Nucleated RBC 0.1 /100WBC 04/02/21 05:16 Sodium 145 mmol/L (136-145) 04/02/21 05:16 Corrected Sodium TNP 04/02/21 05:16 Potassium 4.1 mmol/L (3.5-5.1) 04/02/21 05:16 Chloride 112 mmol/L (98-107) H 04/02/21 05:16 Carbon Dioxide 28.2 mmol/L (21-32) 04/02/21 05:16 BUN 31 mg/dL (7-18) H 04/02/21 05:16 Creatinine 1.38 mg/dL (0.55-1.02) H 04/02/21 05:16 Est GFR (MDRD) Af Amer 47 (>60) L 04/02/21 05:16 Est GFR (MDRD) Non-Af 39 (>60) L 04/02/21 05:16 Glucose 92 mg/dL (65-99) 04/02/21 05:16 POC Glucose (mg/dL) 77 mg/dL (65-99) 04/01/21 16:19 Lactic Acid 0.8 mmol/L (0.4-2.0) 03/31/21 07:26 Calcium 8.5 mg/dL (8.5-10.1) 04/02/21 05:16 Corrected Calcium 9.7 mg/dL (8.5-10.1) 04/02/21 05:16 Magnesium 2.6 mg/dL (1.7-2.9) 03/31/21 04:37 Total Bilirubin 0.60 mg/dL (0.2-1.0) 04/02/21 05:16 AST 26 Units/L (15-37) 04/02/21 05:16 ALT 15 Units/L (12-78) 04/02/21 05:16 Alkaline Phosphatase 73 Units/L (46-116) 04/02/21 05:16 Creatine Kinase 260 Units/L (26-192) H 03/31/21 04:37 CK-MB (CK-2) 4.8 ng/mL (0-4.0) H* 03/31/21 04:37 CK/CKMB % Calc 1.9 % (<4) 03/31/21 04:37 Troponin I High Sens 39.0 ng/L (4.0-60.0) 03/31/21 04:37 Total Protein 5.6 g/dL (6.4-8.2) L 04/02/21 05:16 Albumin 2.5 g/dL (3.4-5.0) L 04/02/21 05:16 Globulin 3.1 g/dL (2.5-4.5) 04/02/21 05:16 Albumin/Globulin Ratio 0.8 Ratio (1.1-2.1) L 04/02/21 05:16 Specimen Type Catherized urine 03/30/21 11:40 Urine Color Yellow (YELLOW) 03/30/21 11:40 Urine Appearance Clear (CLEAR) 03/30/21 11:40 Urine pH 5.0 (5.0 - 8.0) 03/30/21 11:40 Ur Specific [place] 1.020 (1.000-1.030) 03/30/21 11:40 Urine Protein 1+ (NEGATIVE) 03/30/21 11:40 Urine Glucose (UA) Negative (NEGATIVE) 03/30/21 11:40 Urine Ketones Negative (NEGATIVE) 03/30/21 11:40 Urine Occult Blood 1+ (NEGATIVE) 03/30/21 11:40 Urine Nitrite Negative (NEGATIVE) 03/30/21 11:40 Urine Bilirubin 1+ (NEGATIVE) 03/30/21 11:40 Urine Urobilinogen 1+ (NORMAL) 03/30/21 11:40 Ur Leukocyte Esterase 2+ (NEGATIVE) 03/30/21 11:40 Urine RBC 3-5 /HPF (0-3) A 03/30/21 11:40 Urine WBC 3-5 /HPF (0-5) 03/30/21 11:40 Ur Squamous Epith Cells Rare /HPF (NEGATIVE) 03/30/21 11:40 Amorphous Sediment 1+ /HPF (NEGATIVE) 03/30/21 11:40 Urine Bacteria 1+ /HPF (NEGATIVE) 03/30/21 11:40 Ur Culture Indicated? Yes/culture set up 03/30/21 11:40 SARS-CoV-2 (PCR) Negative (NEGATIVE) 03/30/21 12:25 Influenza Type A (PCR) Negative (NEGATIVE) 03/30/21 12:25 Influenza Type B (PCR) Negative (NEGATIVE) 03/30/21 12:25 RSV (PCR) Negative (NEGATIVE) 03/30/21 12:25 - Plan (1) Hypernatremia Status: Acute Plan: D5W AT 75 ML/HR, ROCPEHIN 1G IV DAILY, ZOFRAN 4MG IV Q6H PRN, AND HER HOME MEDICATIONS WERE RESUMED. (2) Renal insufficiency Status: Acute (3) UTI (urinary tract infection) Status: Acute Qualifiers: Urinary tract infection type: acute cystitis Hematuria presence: with hematuria Qualified Code(s): N30.01 - Acute cystitis with hematuria (4) Bronchitis Status: Acute (5) Altered mental status Status: Acute Qualifiers: Altered mental status type: transient alteration of awareness Qualified Code(s): R40.4 - Transient alteration of awareness
[2021-04-02] MEDS: LIPITOR TAB 10 MG PO SCH (21:02)
[2021-04-02] MEDS: NEURONTIN CAP 100 MG PO SCH (21:04)
[2021-04-03] MEDS: D5W 1,000 ML IV 1,000 ML IV SCH ×2 (03:44→16:49)
[2021-04-03] MEDS: CARAFATE PO SCH ×3 (05:50→21:48)
[2021-04-03 07:08] LABS: ALANINE AMINOTRANSFERASE 14 Units/L (12-78); ALBUMIN 2.5 g/dL (3.4-5.0); ALKALINE PHOSPHATASE 70 Units/L (46-116); ASPARTATE AMINO TRANSFERASE 25 Units/L (15-37); BLOOD UREA NITROGEN 21 mg/dL (7-18); CALCIUM 8.2 mg/dL (8.5-10.1); CARBON DIOXIDE 26.8 mmol/L (21-32); CHLORIDE 112 mmol/L (98-107); COR CA(FOR HYPOALB) 9.4 mg/dL (8.5-10.1); CREATININE 1.16 mg/dL (0.55-1.02); SODIUM 145 mmol/L (136-145); TOTAL PROTEIN 5.4 g/dL (6.4-8.2); eGFR NON BLACK RACES 48 (>60)
[2021-04-03 07:09] LABS: BASOPHILS % (AUTO) 0.3 % (0.2-1.0); EOSINOPHILS # (AUTO) 0.2 x10^3/uL (0.0-0.2); EOSINOPHILS % (AUTO) 3.5 % (0.9-2.9); HEMATOCRIT 28.9 % (36.0-47.0); LYMPHOCYTES # (AUTO) 1.7 X10^3/uL (1.3-2.9); LYMPHOCYTES % (AUTO) 33.6 % (21.0-51.0); MEAN CORPUSCULAR HEMOGLOBIN 28.2 pg (27.0-34.0); MEAN CORPUSCULAR HGB CONC 34.5 g/dL (33.0-35.0); MEAN CORPUSCULAR VOLUME 81.7 fL (80.0-100.0); MEAN PLATELET VOLUME 9.2 fL (7.4-11.0); MONOCYTES # (AUTO) 0.6 x10^3/uL (0.3-0.8); MONOCYTES % (AUTO) 12.2 % (0.0-13.0); NEUTROPHILS # (AUTO) 2.6 x10^3/uL (2.2-4.8); NEUTROPHILS % (AUTO) 50.4 % (42.0-75.0); RED BLOOD COUNT 3.54 X10^6/uL (3.5-5.4); RED CELL DISTRIBUTION WIDTH 15.6 % (11.6-16.5); WHITE BLOOD COUNT 5.2 X10^3/uL (3.6-10.0)
[2021-04-03] MEDS: VASOTEC TAB 20 MG PO SCH (09:20)
[2021-04-03] MEDS ORDERED: LEXAPRO ONE (09:49)
[2021-04-03] MEDS: LOVENOX INJ 30 MG SYR SC SCH (10:06)
[2021-04-03] MEDS: POTASSIUM CHLORIDE LIQ 20 MEQ UDC PO SCH (10:06)
[2021-04-03] MEDS: LEXAPRO PO SCH (10:06)
[2021-04-03] MEDS: COLACE CAP 100 MG PO SCH ×2 (10:06→21:48)
[2021-04-03] MEDS: SYNTHROID 125 mcg TAB PO SCH (10:07)
[2021-04-03] MEDS: TAB-A-VITE PO SCH (10:07)
[2021-04-03] MEDS: ROCEPHIN 1 GRAM IV PREMIX 1 G/50 ML IV.SOLN. IV SCH (10:07)
[2021-04-03] MEDS: PROTONIX TAB 40 MG PO SCH ×2 (10:07→21:49)
--- NOTE | 2021-04-03 11:01 | PCM.PROG ---
Progress Note - Progress Note for Day of Date of Exam: 04/03/21 - Subjective Subjective: WAS ADMITTED FOR TREATMENT OF HYPERNATREMIA, RENAL INSUFFICIENCY, UTI, BRONCHITIS, AND AMS. HER PMH INCLUDES: CAD, CHF, CARDIAC ARRHYTHMIA, HTN, HYPERLIPIDEMIA, DEMENTIA, ALZHEIMERS, GERD, DIVERTICULOSIS, CHRONIC CONSTIPATION, OSTEOARTHRITIS, DEPRESSION, SCHIZOPHRENIA. TODAY, SHE IS ALERT, SITTING UP IN BED ON MORNING ROUNDS. SHE IS DISORIENTED. STAFF REPORTS THAT SHE WAS ABLE TO FEED HERSELF BREAKFAST THIS MORNING. SHE RESPONDS VERBALLY WHEN SPOKEN TO. STAFF ALSO REPORTS THAT SHE HAD MULTIPLE BRADYCARDIC EPISODES THROUGHOUT THE NIGHT. HER HEART RATE DID DROP INTO THE 30s ON MULTIPLE OCCASIONS. SHE DOES HAVE A HISTORY OF BRADYCARDIA. ON EXAMINATION, SHE IS BRADYCARDIC WITH HR IN THE 40s. BILATERAL LUNGS NOTED WITH DIMINISHED LUNG SOUNDS THROUGHOUT. ABDOMEN IS ROUND, SOFT, AND NOTED WITH NORMAL BOWEL SOUNDS IN ALL QUADRANTS. HER VITALS THIS MORNING ARE: 97.7-46-20-97%-153/64. LABS WERE OBTAINED. ABNORMAL LAB VALUES INCLUDE THE FOLLOWING: HGB 10.0, HCT 28.9, CHLORIDE 112, BUN 21, CREATININE 1.16, CALCIUM 8.2, TOTAL PROTEIN 5.4, ALBUMIN 2.5. URINE CULTURE REVEALS GROWTH OF E.COLI AND KLEBSIELLA PNEUMONIAE. SHE IS CURRENTLY RECEIVING D5W AT 75 ML/HR, ROCPEHIN 1G IV DAILY, ZOFRAN 4MG IV Q6H PRN, AND HER HOME MEDICATIONS WERE RESUMED. WE WILL ADMINISTER A DOSE OF ATROP INE 0.5MG IV PUSH X 1 NOW AND THEN ATROPINE 0.5MG IV HS. OTHERWISE, WE WILL CONTINUE WITH CURRENT PLAN OF CARE TODAY. WE WILL DISCUSS THE POSSIBLITY OF CARDIOLOGY CONSULT FOR POSSIBLE PACEMAKER WITH HER FAMILY MEMBERS. OTHERWISE, WE PLAN TO FOLLOW UP WITH AM LABS AND CONTINUE TO MONITOR. TIME SPENT ON CLINICAL ASSESSMENT, REVIEWING LABS AND IMAGING, DECISION MAKING, AND DOCUMENTATION GREATER THAN 45 MINUTES. - Past Medical Family Social History Past Med/Fam/Surg Hx: No changes since H&P Allergies: Allergies propoxyphene [From Darvon] Allergy (Verified 03/30/21 10:36) - Review of Systems ROS: No change since H&P - Vital Signs and I&O's Vital Signs: Temperature 97.7 F Pulse Rate [Left Brachial] 46 Pulse Rate [Right Radial] 58 Pulse Rate 45 Respiratory Rate 20 Blood Pressure [Right Arm] 153/64 Blood Pressure 114/62 O2 Sat by Pulse Oximetry 97 Intake and Output: Intake & Output 03/31/21 04/01/21 04/02/21 04/03/21 11:59 11:59 11:59 11:59 Intake Total 1228 / 1228 2629 / 2629 1196 / 1196 1565 / 1565 Output Total 325 / 325 525 / 525 1650 / 1650 1300 / 1300 Balance 903 / 903 2104 / 2104 -454 / -454 265 / 265 - Physical Exam Oriented: Not Oriented Eyes: Normal Ear: Normal Nose: Normal Throat: Normal Respiratory: Generalized, Diminished Cardiovascular: Bradycardia : Normal Auscultation: Bowel Sounds: Normal Palpation: Normal Tenderness: Normal Skin: Decreased Turgur Musculoskeletal: Normal Psychiatric: Normal Mood Description: Flat Affect: Flat Speech Pattern: Unclear, Delayed - Laboratory and Diagnostics Result Diagrams: 04/03/21 06:26 04/03/21 06:26 Labs: 03/30/21 11:40 Urine,Catheterized Urine Culture - Final Escherichia Coli Escherichia Coli#2 Klebsiella Pneumoniae 03/30/21 11:10 Blood Blood Culture - Preliminary 03/30/21 11:20 Blood Blood Culture - Preliminary Laboratory WBC 5.2 X10^3/uL (3.6-10.0) 04/03/21 06:26 RBC 3.54 X10^6/uL (3.5-5.4) 04/03/21 06:26 Hgb 10.0 g/dL (12.0-16.0) L 04/03/21 06:26 Hct 28.9 % (36.0-47.0) L 04/03/21 06:26 MCV 81.7 fL (80.0-100.0) 04/03/21 06:26 MCH 28.2 pg (27.0-34.0) 04/03/21 06:26 MCHC 34.5 g/dL (33.0-35.0) 04/03/21 06:26 RDW 15.6 % (11.6-16.5) 04/03/21 06:26 Plt Count 153 X10^3/uL (150.0-450.0) 04/03/21 06:26 MPV 9.2 fL (7.4-11.0) 04/03/21 06: Neut % (Auto) 50.4 % (42.0-75.0) 04/03/21 06: Lymph % (Auto) 33.6 % (21.0-51.0) 04/03/21 06: [place] % (Auto) 12.2 % (0.0-13.0) 04/03/21 06:26 Eos % (Auto) 3.5 % (0.9-2.9) H 04/03/21 06:26 Baso % (Auto) 0.3 % (0.2-1.0) 04/03/21 06: Neut # (Auto) 2.6 x10^3/uL (2.2-4.8) 04/03/21 06: Lymph # (Auto) 1.7 X10^3/uL (1.3-2.9) 04/03/21 06:26 [place] # (Auto) 0.6 x10^3/uL (0.3-0.8) 04/03/21 06:26 Eos # (Auto) 0.2 x10^3/uL (0.0-0.2) 04/03/21 06: Baso # (Auto) 0.0 X10^3/uL (0.0-0.1) 04/03/21 06:26 Absolute Nucleated RBC 0.1 /100WBC 04/03/21 06:26 Sodium 145 mmol/L (136-145) 04/03/21 06:26 Corrected Sodium TNP 04/03/21 06:26 Potassium 4.2 mmol/L (3.5-5.1) 04/03/21 06:26 Chloride 112 mmol/L (98-107) H 04/03/21 06:26 Carbon Dioxide 26.8 mmol/L (21-32) 04/03/21 06:26 BUN 21 mg/dL (7-18) H 04/03/21 06:26 Creatinine 1.16 mg/dL (0.55-1.02) H 04/03/21 06:26 Est GFR (MDRD) Af Amer 58 (>60) L 04/03/21 06:26 Est GFR (MDRD) Non-Af 48 (>60) L 04/03/21 06:26 Glucose 86 mg/dL (65-99) 04/03/21 06:26 POC Glucose (mg/dL) 77 mg/dL (65-99) 04/01/21 16:19 Lactic Acid 0.8 mmol/L (0.4-2.0) 03/31/21 07:26 Calcium 8.2 mg/dL (8.5-10.1) L 04/03/21 06:26 Corrected Calcium 9.4 mg/dL (8.5-10.1) 04/03/21 06:26 Magnesium 2.6 mg/dL (1.7-2.9) 03/31/21 04:37 Total Bilirubin 0.50 mg/dL (0.2-1.0) 04/03/21 06:26 AST 25 Units/L (15-37) 04/03/21 06:26 ALT 14 Units/L (12-78) 04/03/21 06:26 Alkaline Phosphatase 70 Units/L (46-116) 04/03/21 06:26 Creatine Kinase 260 Units/L (26-192) H 03/31/21 04:37 CK-MB (CK-2) 4.8 ng/mL (0-4.0) H* 03/31/21 04:37 CK/CKMB % Calc 1.9 % (<4) 03/31/21 04:37 Troponin I High Sens 39.0 ng/L (4.0-60.0) 03/31/21 04:37 Total Protein 5.4 g/dL (6.4-8.2) L 04/03/21 06:26 Albumin 2.5 g/dL (3.4-5.0) L 04/03/21 06:26 Globulin 2.9 g/dL (2.5-4.5) 04/03/21 06:26 Albumin/Globulin Ratio 0.9 Ratio (1.1-2.1) L 04/03/21 06:26 Specimen Type Catherized urine 03/30/21 11:40 Urine Color Yellow (YELLOW) 03/30/21 11:40 Urine Appearance Clear (CLEAR) 03/30/21 11:40 Urine pH 5.0 (5.0 - 8.0) 03/30/21 11:40 Ur Specific [place] 1.020 (1.000-1.030) 03/30/21 11:40 Urine Protein 1+ (NEGATIVE) 03/30/21 11:40 Urine Glucose (UA) Negative (NEGATIVE) 03/30/21 11:40 Urine Ketones Negative (NEGATIVE) 03/30/21 11:40 Urine Occult Blood 1+ (NEGATIVE) 03/30/21 11:40 Urine Nitrite Negative (NEGATIVE) 03/30/21 11:40 Urine Bilirubin 1+ (NEGATIVE) 03/30/21 11:40 Urine Urobilinogen 1+ (NORMAL) 03/30/21 11:40 Ur Leukocyte Esterase 2+ (NEGATIVE) 03/30/21 11:40 Urine RBC 3-5 /HPF (0-3) A 03/30/21 11:40 Urine WBC 3-5 /HPF (0-5) 03/30/21 11:40 Ur Squamous Epith Cells Rare /HPF (NEGATIVE) 03/30/21 11:40 Amorphous Sediment 1+ /HPF (NEGATIVE) 03/30/21 11:40 Urine Bacteria 1+ /HPF (NEGATIVE) 03/30/21 11:40 Ur Culture Indicated? Yes/culture set up 03/30/21 11:40 SARS-CoV-2 (PCR) Negative (NEGATIVE) 03/30/21 12:25 Influenza Type A (PCR) Negative (NEGATIVE) 03/30/21 12:25 Influenza Type B (PCR) Negative (NEGATIVE) 03/30/21 12:25 RSV (PCR) Negative (NEGATIVE) 03/30/21 12:25 - Plan (1) Hypernatremia Status: Acute Plan: D5W AT 75 ML/HR, ROCPEHIN 1G IV DAILY, ZOFRAN 4MG IV Q6H PRN, AND HER HOME MEDICATIONS WERE RESUMED. (2) Renal insufficiency Status: Acute (3) UTI (urinary tract infection) Status: Acute Qualifiers: Urinary tract infection type: acute cystitis Hematuria presence: with hematuria Qualified Code(s): N30.01 - Acute cystitis with hematuria (4) Bronchitis Status: Acute (5) Altered mental status Status: Acute Qualifiers: Altered mental status type: transient alteration of awareness Qualified Code(s): R40.4 - Transient alteration of awareness (6) Bradycardia Status: Acute Plan: ATROPINE
[2021-04-03] MEDS: NEURONTIN CAP 100 MG PO SCH (21:49)
[2021-04-03] MEDS: LIPITOR TAB 10 MG PO SCH (21:49)
[2021-04-03] MEDS: ATROPINE SULFATE ABBOJECT IVP SCH ×2 (22:06→22:14)
[2021-04-04 05:00] LABS: BASOPHILS % (AUTO) 0.5 % (0.2-1.0); EOSINOPHILS # (AUTO) 0.2 x10^3/uL (0.0-0.2); EOSINOPHILS % (AUTO) 3.2 % (0.9-2.9); HEMATOCRIT 29.3 % (36.0-47.0); HEMOGLOBIN 10.1 g/dL (12.0-16.0); LYMPHOCYTES # (AUTO) 1.5 X10^3/uL (1.3-2.9); LYMPHOCYTES % (AUTO) 31.6 % (21.0-51.0); MEAN CORPUSCULAR HEMOGLOBIN 28.2 pg (27.0-34.0); MEAN CORPUSCULAR HGB CONC 34.6 g/dL (33.0-35.0); MEAN CORPUSCULAR VOLUME 81.6 fL (80.0-100.0); MEAN PLATELET VOLUME 8.9 fL (7.4-11.0); MONOCYTES # (AUTO) 0.6 x10^3/uL (0.3-0.8); MONOCYTES % (AUTO) 13.1 % (0.0-13.0); NEUTROPHILS # (AUTO) 2.4 x10^3/uL (2.2-4.8); NEUTROPHILS % (AUTO) 51.6 % (42.0-75.0); RED BLOOD COUNT 3.59 X10^6/uL (3.5-5.4); RED CELL DISTRIBUTION WIDTH 15.5 % (11.6-16.5); WHITE BLOOD COUNT 4.7 X10^3/uL (3.6-10.0)
[2021-04-04 05:17] LABS: ALANINE AMINOTRANSFERASE 16 Units/L (12-78); ALBUMIN 2.5 g/dL (3.4-5.0); ALKALINE PHOSPHATASE 79 Units/L (46-116); ASPARTATE AMINO TRANSFERASE 20 Units/L (15-37); BLOOD UREA NITROGEN 16 mg/dL (7-18); CALCIUM 8.2 mg/dL (8.5-10.1); CARBON DIOXIDE 29.5 mmol/L (21-32); CHLORIDE 111 mmol/L (98-107); COR CA(FOR HYPOALB) 9.4 mg/dL (8.5-10.1); CREATININE 1.08 mg/dL (0.55-1.02); SODIUM 143 mmol/L (136-145); TOTAL PROTEIN 5.5 g/dL (6.4-8.2); eGFR NON BLACK RACES 52 (>60)
[2021-04-04] MEDS: CARAFATE PO SCH ×3 (05:20→20:53)
[2021-04-04] MEDS: D5W 1,000 ML IV 1,000 ML IV SCH ×2 (05:21→17:33)
[2021-04-04] MEDS ORDERED: LEXAPRO ONE (08:05)
--- NOTE | 2021-04-04 09:19 | PCM.PROG ---
Progress Note - Progress Note for Day of Date of Exam: 04/04/21 - Subjective Subjective: WAS ADMITTED FOR TREATMENT OF HYPERNATREMIA, RENAL INSUFFICIENCY, UTI, BRONCHITIS, GENERALIZED WEAKNESS, BRADYCARDIA, AND AMS. HER PMH INCLUDES: CAD, CHF, CARDIAC ARRHYTHMIA, HTN, HYPERLIPIDEMIA, DEMENTIA, ALZHEIMERS, GERD, DIVERTICULOSIS, CHRONIC CONSTIPATION, OSTEOARTHRITIS, DEPRE SSION, SCHIZOPHRENIA. TODAY, SHE IS ALERT, SITTING UP IN BED ON MORNING ROUNDS. SHE RESPONDS VERBALLY WHEN SPOKEN TO. STAFF REPORTS THAT SHE IS DISORIENTED AT TIMES. SHE CONTINUES WITH GENERALIZED WEAKNESS TODAY. ON EXAMINATION, HEART IS REGULAR IN RATE AND RHYTHM. BILATERAL LUNGS NOTED WITH DIMINISHED LUNG SOUNDS THROUGHOUT. ABDOMEN IS ROUND, SOFT, AND NOTED WITH NORMAL BOWEL SOUNDS IN ALL QUADRANTS. HER VITALS THIS MORNING ARE: 98.9-68-20-96%-193/86. LABS WERE OBTAINED. ABNORMAL LAB VALUES INCLUDE THE FOLLOWING: HGB 10.1, HCT 29.3, CHLORIDE 111, CREATININE 1.08, CALCIUM 8.2, TOTAL PROTEIN 5.5, ALBUMIN 2.5. HYPERNATREMIA HAS RESOLVED. URINE CULTURE REVEALS GROWTH OF E.COLI AND KLEBSIELLA PNEUMONIAE. SHE IS CURRENTLY RECEIVING D5W AT 75 ML/HR, ROCPEHIN 1G IV DAILY, ATROPINE 0.5MG IV HS, ZOFRAN 4MG IV Q6H PRN, AND HER HOME MEDICATIONS WERE RESUMED. WE WILL CONTINUE WITH CURRENT PLAN OF CARE TODAY. CARDIOLOGY WILL CONSULT WITH HER THIS WEEK. OTHERWISE, WE PLAN TO FOLLOW UP WITH AM LABS AND CONTINUE TO MONITOR. TIME SPENT ON CLINICAL ASSESSMENT, REVIEWING LABS AND IMAGING, DECISION MAKING, AND DOCUMENTATION GREATER THAN 45 MINUTES. - Past Medical Family Social History Past Med/Fam/Surg Hx: No changes since H&P Allergies: Allergies propoxyphene [From Darvon] Allergy (Verified 03/30/21 10:36) - Review of Systems ROS: No change since H&P - Vital Signs and I&O's Vital Signs: Temperature 98.9 F Pulse Rate [Left Brachial] 68 Pulse Rate [Right Radial] 58 Pulse Rate 45 Respiratory Rate 20 Blood Pressure [Right Arm] 144/65 Blood Pressure 114/62 O2 Sat by Pulse Oximetry 96 Intake and Output: Intake & Output 04/01/21 04/02/21 04/03/21 04/04/21 11:59 11:59 11:59 11:59 Intake Total 2629 / 2629 1196 / 1196 1565 / 1565 2637 / 2637 Output Total 525 / 525 1650 / 1650 1300 / 1300 1350 / 1350 Balance 2104 / 2104 -454 / -454 265 / 265 1287 / 1287 - Physical Exam Oriented: Not Oriented Eyes: Normal Ear: Normal Nose: Normal Throat: Normal Respiratory: Generalized, Diminished Cardiovascular: Bradycardia : Normal Auscultation: Bowel Sounds: Normal Tenderness: Normal Skin: Decreased Turgur Musculoskeletal: Normal Psychiatric: Normal Mood Description: Flat Affect: Flat Speech Pattern: Unclear, Delayed - Laboratory and Diagnostics Result Diagrams: 04/04/21 03:53 04/04/21 03:53 Labs: 03/30/21 11:40 Urine,Catheterized Urine Culture - Final Escherichia Coli Escherichia Coli#2 Klebsiella Pneumoniae 03/30/21 11:10 Blood Blood Culture - Preliminary 03/30/21 11:20 Blood Blood Culture - Preliminary Laboratory WBC 4.7 X10^3/uL (3.6-10.0) 04/04/21 03:53 RBC 3.59 X10^6/uL (3.5-5.4) 04/04/21 03:53 Hgb 10.1 g/dL (12.0-16.0) L 04/04/21 03:53 Hct 29.3 % (36.0-47.0) L 04/04/21 03:53 MCV 81.6 fL (80.0-100.0) 04/04/21 03:53 MCH 28.2 pg (27.0-34.0) 04/04/21 03:53 MCHC 34.6 g/dL (33.0-35.0) 04/04/21 03:53 RDW 15.5 % (11.6-16.5) 04/04/21 03:53 Plt Count 157 X10^3/uL (150.0-450.0) 04/04/21 03:53 MPV 8.9 fL (7.4-11.0) 04/04/21 03:53 Neut % (Auto) 51.6 % (42.0-75.0) 04/04/21 03:53 Lymph % (Auto) 31.6 % (21.0-51.0) 04/04/21 03:53 [place] % (Auto) 13.1 % (0.0-13.0) H 04/04/21 03:53 Eos % (Auto) 3.2 % (0.9-2.9) H 04/04/21 03:53 Baso % (Auto) 0.5 % (0.2-1.0) 04/04/21 03:53 Neut # (Auto) 2.4 x10^3/uL (2.2-4.8) 04/04/21 03:53 Lymph # (Auto) 1.5 X10^3/uL (1.3-2.9) 04/04/21 03:53 [place] # (Auto) 0.6 x10^3/uL (0.3-0.8) 04/04/21 03:53 Eos # (Auto) 0.2 x10^3/uL (0.0-0.2) 04/04/21 03:53 Baso # (Auto) 0.0 X10^3/uL (0.0-0.1) 04/04/21 03:53 Absolute Nucleated RBC 0.1 /100WBC 04/04/21 03:53 Sodium 143 mmol/L (136-145) 04/04/21 03:53 Corrected Sodium TNP 04/04/21 03:53 Potassium 4.3 mmol/L (3.5-5.1) 04/04/21 03:53 Chloride 111 mmol/L (98-107) H 04/04/21 03:53 Carbon Dioxide 29.5 mmol/L (21-32) 04/04/21 03:53 BUN 16 mg/dL (7-18) 04/04/21 03:53 Creatinine 1.08 mg/dL (0.55-1.02) H 04/04/21 03:53 Est GFR (MDRD) Af Amer > 60 (>60) 04/04/21 03:53 Est GFR (MDRD) Non-Af 52 (>60) L 04/04/21 03:53 Glucose 96 mg/dL (65-99) 04/04/21 03:53 POC Glucose (mg/dL) 77 mg/dL (65-99) 04/01/21 16:19 Lactic Acid 0.8 mmol/L (0.4-2.0) 03/31/21 07:26 Calcium 8.2 mg/dL (8.5-10.1) L 04/04/21 03:53 Corrected Calcium 9.4 mg/dL (8.5-10.1) 04/04/21 03:53 Magnesium 2.6 mg/dL (1.7-2.9) 03/31/21 04:37 Total Bilirubin 0.40 mg/dL (0.2-1.0) 04/04/21 03:53 AST 20 Units/L (15-37) 04/04/21 03:53 ALT 16 Units/L (12-78) 04/04/21 03:53 Alkaline Phosphatase 79 Units/L (46-116) 04/04/21 03:53 Creatine Kinase 260 Units/L (26-192) H 03/31/21 04:37 CK-MB (CK-2) 4.8 ng/mL (0-4.0) H* 03/31/21 04:37 CK/CKMB % Calc 1.9 % (<4) 03/31/21 04:37 Troponin I High Sens 39.0 ng/L (4.0-60.0) 03/31/21 04:37 Total Protein 5.5 g/dL (6.4-8.2) L 04/04/21 03:53 Albumin 2.5 g/dL (3.4-5.0) L 04/04/21 03:53 Globulin 3.0 g/dL (2.5-4.5) 04/04/21 03:53 Albumin/Globulin Ratio 0.8 Ratio (1.1-2.1) L 04/04/21 03:53 Specimen Type Catherized urine 03/30/21 11:40 Urine Color Yellow (YELLOW) 03/30/21 11:40 Urine Appearance Clear (CLEAR) 03/30/21 11:40 Urine pH 5.0 (5.0 - 8.0) 03/30/21 11:40 Ur Specific [place] 1.020 (1.000-1.030) 03/30/21 11:40 Urine Protein 1+ (NEGATIVE) 03/30/21 11:40 Urine Glucose (UA) Negative (NEGATIVE) 03/30/21 11:40 Urine Ketones Negative (NEGATIVE) 03/30/21 11:40 Urine Occult Blood 1+ (NEGATIVE) 03/30/21 11:40 Urine Nitrite Negative (NEGATIVE) 03/30/21 11:40 Urine Bilirubin 1+ (NEGATIVE) 03/30/21 11:40 Urine Urobilinogen 1+ (NORMAL) 03/30/21 11:40 Ur Leukocyte Esterase 2+ (NEGATIVE) 03/30/21 11:40 Urine RBC 3-5 /HPF (0-3) A 03/30/21 11:40 Urine WBC 3-5 /HPF (0-5) 03/30/21 11:40 Ur Squamous Epith Cells Rare /HPF (NEGATIVE) 03/30/21 11:40 Amorphous Sediment 1+ /HPF (NEGATIVE) 03/30/21 11:40 Urine Bacteria 1+ /HPF (NEGATIVE) 03/30/21 11:40 Ur Culture Indicated? Yes/culture set up 03/30/21 11:40 SARS-CoV-2 (PCR) Negative (NEGATIVE) 03/30/21 12:25 Influenza Type A (PCR) Negative (NEGATIVE) 03/30/21 12:25 Influenza Type B (PCR) Negative (NEGATIVE) 03/30/21 12:25 RSV (PCR) Negative (NEGATIVE) 03/30/21 12:25 - Plan (1) Hypernatremia Status: Acute Plan: D5W AT 75 ML/HR, ROCPEHIN 1G IV DAILY, ZOFRAN 4MG IV Q6H PRN, AND HER HOME MEDICATIONS WERE RESUMED. (2) Renal insufficiency Status: Acute (3) UTI (urinary tract infection) Status: Acute Qualifiers: Urinary tract infection type: acute cystitis Hematuria presence: with hematuria Qualified Code(s): N30.01 - Acute cystitis with hematuria (4) Bronchitis Status: Acute (5) Altered mental status Status: Acute Qualifiers: Altered mental status type: transient alteration of awareness Qualified Code(s): R40.4 - Transient alteration of awareness (6) Bradycardia Status: Acute Plan: ATROPINE 0.5MG IV HS
[2021-04-04] MEDS: LEXAPRO PO SCH (09:36)
[2021-04-04] MEDS: LOVENOX INJ 30 MG SYR SC SCH (09:36)
[2021-04-04] MEDS: COLACE CAP 100 MG PO SCH ×2 (09:36→20:53)
[2021-04-04] MEDS: PEPCID TAB 20 MG PO SCH (09:37)
[2021-04-04] MEDS: ROCEPHIN 1 GRAM IV PREMIX 1 G/50 ML IV.SOLN. IV SCH (09:37)
[2021-04-04] MEDS: PROTONIX TAB 40 MG PO SCH ×2 (09:37→20:53)
[2021-04-04] MEDS: POTASSIUM CHLORIDE LIQ 20 MEQ UDC PO SCH (09:37)
[2021-04-04] MEDS: VASOTEC TAB 20 MG PO SCH (09:38)
[2021-04-04] MEDS: SYNTHROID 125 mcg TAB PO SCH (09:38)
[2021-04-04] MEDS: TAB-A-VITE PO SCH (09:38)
[2021-04-04] MEDS: PREPARATION H OINT EXT SCH (18:54)
[2021-04-04] MEDS: LIPITOR TAB 10 MG PO SCH (20:53)
[2021-04-04] MEDS: NEURONTIN CAP 100 MG PO SCH (20:53)
[2021-04-04] MEDS: ATROPINE SULFATE ABBOJECT IVP SCH (21:37)
[2021-04-05] MEDS: ATROPINE SULFATE ABBOJECT IVP SCH (02:09)
[2021-04-05] MEDS: D5W 1,000 ML IV 1,000 ML IV SCH ×2 (05:15→20:50)
[2021-04-05] MEDS: CARAFATE PO SCH ×2 (05:15→16:30)
[2021-04-05 06:31] LABS: BASOPHILS # (AUTO) 0.1 X10^3/uL (0.0-0.1); BASOPHILS % (AUTO) 0.8 % (0.2-1.0); EOSINOPHILS # (AUTO) 0.2 x10^3/uL (0.0-0.2); HEMATOCRIT 29.9 % (36.0-47.0); HEMOGLOBIN 10.3 g/dL (12.0-16.0); LYMPHOCYTES % (AUTO) 32.1 % (21.0-51.0); MEAN CORPUSCULAR HGB CONC 34.4 g/dL (33.0-35.0); MEAN CORPUSCULAR VOLUME 81.5 fL (80.0-100.0); MONOCYTES % (AUTO) 15.7 % (0.0-13.0); NEUTROPHILS # (AUTO) 3.1 x10^3/uL (2.2-4.8); NEUTROPHILS % (AUTO) 48.4 % (42.0-75.0); RED BLOOD COUNT 3.67 X10^6/uL (3.5-5.4); RED CELL DISTRIBUTION WIDTH 15.2 % (11.6-16.5); WHITE BLOOD COUNT 6.4 X10^3/uL (3.6-10.0)
[2021-04-05 06:51] LABS: ALANINE AMINOTRANSFERASE 19 Units/L (12-78); ALBUMIN 2.6 g/dL (3.4-5.0); ALKALINE PHOSPHATASE 80 Units/L (46-116); ASPARTATE AMINO TRANSFERASE 33 Units/L (15-37); BLOOD UREA NITROGEN 12 mg/dL (7-18); CALCIUM 8.6 mg/dL (8.5-10.1); CARBON DIOXIDE 27.7 mmol/L (21-32); CHLORIDE 113 mmol/L (98-107); COR CA(FOR HYPOALB) 9.7 mg/dL (8.5-10.1); CREATININE 1.07 mg/dL (0.55-1.02); SODIUM 146 mmol/L (136-145); TOTAL PROTEIN 5.8 g/dL (6.4-8.2); eGFR NON BLACK RACES 52 (>60)
--- NOTE | 2021-04-05 09:26 | PCM.PROG ---
Progress Note - Progress Note for Day of Date of Exam: 04/05/21 - Subjective Subjective: WAS ADMITTED FOR TREATMENT OF HYPERNATREMIA, RENAL INSUFFICIENCY, UTI, BRONCHITIS, GENERALIZED WEAKNESS, BRADYCARDIA, AND AMS. HYPERNATREMIA HAS RESOLVED. HER PMH INCLUDES: CAD, CHF, CARDIAC ARRHYTHMIA, HTN, HYPERLIPIDEMIA, DEMENTIA, ALZHEIMERS, GERD, DIVERTICULOSIS, CHRONIC CONSTIP ATION, OSTEOARTHRITIS, DEPRESSION, SCHIZOPHRENIA. TODAY, SHE IS ALERT, SITTING UP IN BED ON MORNING ROUNDS. SHE RESPONDS VERBALLY WHEN SPOKEN TO. STAFF REPORTS THAT SHE IS DISORIENTED AT TIMES. SHE CONTINUES WITH GENERALIZED WEAKNESS TODAY. STAFF REPORT THAT SHE HAD AN EPIOSDE THROUGHOUT THE NIGHT WHEN HR DROPPED TO 30 BPM. ATROPINE WAS GIVEN AT THAT TIME AND HR INCREASED TO THE 50s. ON EXAMINATIO N, HEART IS REGULAR IN RATE AND RHYTHM. BILATERAL LUNGS NOTED WITH DIMINISHED LUNG SOUNDS THROUGHOUT. ABDOMEN IS ROUND, SOFT, AND NOTED WITH NORMAL BOWEL SOUNDS IN ALL QUADRANTS. HER VITALS THIS MORNING ARE: 97.9-44-18-97%-141/65. LABS WERE OBTAINED. ABNORMAL LAB VALUES INCLUDE THE FOLLOWING: HGB 10.3, HCT 29.9, SODIUM 146, CHLORIDE 113, CREATININE 1.07, TOTAL PROTEIN 5.8, ALBUMIN 2.6. URINE CULTURE REVEALS GROWTH OF E.COLI AND KLEBSIELLA PNEUMONIAE. SHE IS CURRENTLY RECEIVING D5W AT 75 ML/HR, ROCPEHIN 1G IV DAILY, ATROPINE 0.5MG IV HS, ZOFRAN 4MG IV Q6H PRN, AND HER HOME MEDICATIONS WERE RESUMED. WE WILL CONTINUE WITH CURRENT PLAN OF CARE TODAY. CARDIOLOGY WILL CONSULT WITH HER THIS WEEK. O DAMON, WE PLAN TO FOLLOW UP WITH AM LABS AND CONTINUE TO MONITOR. TIME SPENT ON CLINICAL ASSESSMENT, REVIEWING LABS AND IMAGING, DECISION MAKING, AND DOCUMENTATION GREATER THAN 45 MINUTES. - Past Medical Family Social History Past Med/Fam/Surg Hx: No changes since H&P Allergies: Allergies propoxyphene [From Darvon] Allergy (Verified 03/30/21 10:36) - Review of Systems ROS: No change since H&P - Vital Signs and I&O's Vital Signs: Temperature 97.9 F Pulse Rate [Left Brachial] 44 Pulse Rate [Right Radial] 58 Pulse Rate 45 Respiratory Rate 18 Blood Pressure [Left Arm] 141/65 Blood Pressure [Right Arm] 176/97 Blood Pressure 114/62 O2 Sat by Pulse Oximetry 97 Intake and Output: Intake & Output 04/02/21 04/03/21 04/04/21 04/05/21 11:59 11:59 11:59 11:59 Intake Total 1196 / 1196 1565 / 1565 2637 / 2637 2650 / 2650 Output Total 1650 / 1650 1300 / 1300 1350 / 1350 2450 / 2450 Balance -454 / -454 265 / 265 1287 / 1287 200 / 200 - Physical Exam Oriented: Not Oriented Eyes: Normal Ear: Normal Nose: Normal Throat: Normal Respiratory: Generalized, Diminished Cardiovascular: Bradycardia : Normal Auscultation: Bowel Sounds: Normal Palpation: Normal Tenderness: Normal Skin: Decreased Turgur Musculoskeletal: Normal Psychiatric: Normal Mood Description: Flat Affect: Flat Speech Pattern: Unclear, Delayed - Laboratory and Diagnostics Result Diagrams: 04/05/21 06:10 04/05/21 06:10 Labs: 03/30/21 11:20 Blood Blood Culture - Final 03/30/21 11:10 Blood Blood Culture - Final 03/30/21 11:40 Urine,Catheterized Urine Culture - Final Escherichia Coli Escherichia Coli#2 Klebsiella Pneumoniae Laboratory WBC 6.4 X10^3/uL (3.6-10.0) 04/05/21 06:10 RBC 3.67 X10^6/uL (3.5-5.4) 04/05/21 06:10 Hgb 10.3 g/dL (12.0-16.0) L 04/05/21 06:10 Hct 29.9 % (36.0-47.0) L 04/05/21 06:10 MCV 81.5 fL (80.0-100.0) 04/05/21 06:10 MCH 28.0 pg (27.0-34.0) 04/05/21 06:10 MCHC 34.4 g/dL (33.0-35.0) 04/05/21 06:10 RDW 15.2 % (11.6-16.5) 04/05/21 06:10 Plt Count 157 X10^3/uL (150.0-450.0) 04/05/21 06:10 MPV 9.0 fL (7.4-11.0) 04/05/21 06:10 Neut % (Auto) 48.4 % (42.0-75.0) 04/05/21 06:10 Lymph % (Auto) 32.1 % (21.0-51.0) 04/05/21 06:10 [place] % (Auto) 15.7 % (0.0-13.0) H 04/05/21 06:10 Eos % (Auto) 3.0 % (0.9-2.9) H 04/05/21 06:10 Baso % (Auto) 0.8 % (0.2-1.0) 04/05/21 06:10 Neut # (Auto) 3.1 x10^3/uL (2.2-4.8) 04/05/21 06:10 Lymph # (Auto) 2.0 X10^3/uL (1.3-2.9) 04/05/21 06:10 [place] # (Auto) 1.0 x10^3/uL (0.3-0.8) H 04/05/21 06:10 Eos # (Auto) 0.2 x10^3/uL (0.0-0.2) 04/05/21 06:10 Baso # (Auto) 0.1 X10^3/uL (0.0-0.1) 04/05/21 06:10 Absolute Nucleated RBC 0.1 /100WBC 04/05/21 06:10 Sodium 146 mmol/L (136-145) H 04/05/21 06:10 Corrected Sodium TNP 04/05/21 06:10 Potassium 5.0 mmol/L (3.5-5.1) 04/05/21 06:10 Chloride 113 mmol/L (98-107) H 04/05/21 06:10 Carbon Dioxide 27.7 mmol/L (21-32) 04/05/21 06:10 BUN 12 mg/dL (7-18) 04/05/21 06:10 Creatinine 1.07 mg/dL (0.55-1.02) H 04/05/21 06:10 Est GFR (MDRD) Af Amer > 60 (>60) 04/05/21 06:10 Est GFR (MDRD) Non-Af 52 (>60) L 04/05/21 06:10 Glucose 81 mg/dL (65-99) 04/05/21 06:10 POC Glucose (mg/dL) 77 mg/dL (65-99) 04/01/21 16:19 Lactic Acid 0.8 mmol/L (0.4-2.0) 03/31/21 07:26 Calcium 8.6 mg/dL (8.5-10.1) 04/05/21 06:10 Corrected Calcium 9.7 mg/dL (8.5-10.1) 04/05/21 06:10 Magnesium 2.6 mg/dL (1.7-2.9) 03/31/21 04:37 Total Bilirubin 0.60 mg/dL (0.2-1.0) 04/05/21 06:10 AST 33 Units/L (15-37) 04/05/21 06:10 ALT 19 Units/L (12-78) 04/05/21 06:10 Alkaline Phosphatase 80 Units/L (46-116) 04/05/21 06:10 Creatine Kinase 260 Units/L (26-192) H 03/31/21 04:37 CK-MB (CK-2) 4.8 ng/mL (0-4.0) H* 03/31/21 04:37 CK/CKMB % Calc 1.9 % (<4) 03/31/21 04:37 Troponin I High Sens 39.0 ng/L (4.0-60.0) 03/31/21 04:37 Total Protein 5.8 g/dL (6.4-8.2) L 04/05/21 06:10 Albumin 2.6 g/dL (3.4-5.0) L 04/05/21 06:10 Globulin 3.2 g/dL (2.5-4.5) 04/05/21 06:10 Albumin/Globulin Ratio 0.8 Ratio (1.1-2.1) L 04/05/21 06:10 Specimen Type Catherized urine 03/30/21 11:40 Urine Color Yellow (YELLOW) 03/30/21 11:40 Urine Appearance Clear (CLEAR) 03/30/21 11:40 Urine pH 5.0 (5.0 - 8.0) 03/30/21 11:40 Ur Specific [place] 1.020 (1.000-1.030) 03/30/21 11:40 Urine Protein 1+ (NEGATIVE) 03/30/21 11:40 Urine Glucose (UA) Negative (NEGATIVE) 03/30/21 11:40 Urine Ketones Negative (NEGATIVE) 03/30/21 11:40 Urine Occult Blood 1+ (NEGATIVE) 03/30/21 11:40 Urine Nitrite Negative (NEGATIVE) 03/30/21 11:40 Urine Bilirubin 1+ (NEGATIVE) 03/30/21 11:40 Urine Urobilinogen 1+ (NORMAL) 03/30/21 11:40 Ur Leukocyte Esterase 2+ (NEGATIVE) 03/30/21 11:40 Urine RBC 3-5 /HPF (0-3) A 03/30/21 11:40 Urine WBC 3-5 /HPF (0-5) 03/30/21 11:40 Ur Squamous Epith Cells Rare /HPF (NEGATIVE) 03/30/21 11:40 Amorphous Sediment 1+ /HPF (NEGATIVE) 03/30/21 11:40 Urine Bacteria 1+ /HPF (NEGATIVE) 03/30/21 11:40 Ur Culture Indicated? Yes/culture set up 03/30/21 11:40 SARS-CoV-2 (PCR) Negative (NEGATIVE) 03/30/21 12:25 Influenza Type A (PCR) Negative (NEGATIVE) 03/30/21 12:25 Influenza Type B (PCR) Negative (NEGATIVE) 03/30/21 12:25 RSV (PCR) Negative (NEGATIVE) 03/30/21 12:25 - Plan (1) Hypernatremia Status: Acute Plan: D5W AT 75 ML/HR, ROCPEHIN 1G IV DAILY, ZOFRAN 4MG IV Q6H PRN, AND HER HOME MEDICATIONS WERE RESUMED. (2) Renal insufficiency Status: Acute (3) UTI (urinary tract infection) Status: Acute Qualifiers: Urinary tract infection type: acute cystitis Hematuria presence: with hematuria Qualified Code(s): N30.01 - Acute cystitis with hematuria (4) Bronchitis Status: Acute (5) Altered mental status Status: Acute Qualifiers: Altered mental status type: transient alteration of awareness Qualified Code(s): R40.4 - Transient alteration of awareness (6) Bradycardia Status: Acute Plan: ATROPINE 0.5MG IV HS
[2021-04-05] MEDS: TAB-A-VITE PO SCH (10:00)
[2021-04-05] MEDS: VASOTEC TAB 20 MG PO SCH (10:00)
[2021-04-05] MEDS: PROTONIX TAB 40 MG PO SCH ×2 (10:00→20:39)
[2021-04-05] MEDS: POTASSIUM CHLORIDE LIQ 20 MEQ UDC PO SCH (10:00)
[2021-04-05] MEDS: COLACE CAP 100 MG PO SCH ×2 (10:00→20:41)
[2021-04-05] MEDS: ROCEPHIN 1 GRAM IV PREMIX 1 G/50 ML IV.SOLN. IV SCH (10:00)
[2021-04-05] MEDS: LEXAPRO PO SCH (10:00)
[2021-04-05] MEDS: SYNTHROID 125 mcg TAB PO SCH (10:00)
[2021-04-05] MEDS ORDERED: LEXAPRO ONE (10:26)
[2021-04-05] MEDS: LOVENOX INJ 30 MG SYR SC SCH (10:47)
[2021-04-05] MEDS: NEURONTIN CAP 100 MG PO SCH (20:40)
[2021-04-05] MEDS: LIPITOR TAB 10 MG PO SCH (20:41)
[2021-04-06] MEDS: CARAFATE PO SCH ×4 (01:11→21:32)
[2021-04-06] MEDS: ATROPINE SULFATE ABBOJECT IVP SCH (02:11)
[2021-04-06 05:53] LABS: BASOPHILS % (AUTO) 0.9 % (0.2-1.0); EOSINOPHILS # (AUTO) 0.2 x10^3/uL (0.0-0.2); EOSINOPHILS % (AUTO) 3.8 % (0.9-2.9); HEMATOCRIT 26.6 % (36.0-47.0); HEMOGLOBIN 9.2 g/dL (12.0-16.0); LYMPHOCYTES # (AUTO) 1.6 X10^3/uL (1.3-2.9); LYMPHOCYTES % (AUTO) 31.5 % (21.0-51.0); MEAN CORPUSCULAR HEMOGLOBIN 28.4 pg (27.0-34.0); MEAN CORPUSCULAR HGB CONC 34.6 g/dL (33.0-35.0); MEAN CORPUSCULAR VOLUME 82.1 fL (80.0-100.0); MEAN PLATELET VOLUME 9.3 fL (7.4-11.0); MONOCYTES # (AUTO) 0.8 x10^3/uL (0.3-0.8); MONOCYTES % (AUTO) 16.3 % (0.0-13.0); NEUTROPHILS # (AUTO) 2.3 x10^3/uL (2.2-4.8); NEUTROPHILS % (AUTO) 47.5 % (42.0-75.0); RED BLOOD COUNT 3.25 X10^6/uL (3.5-5.4); RED CELL DISTRIBUTION WIDTH 15.5 % (11.6-16.5); WHITE BLOOD COUNT 4.9 X10^3/uL (3.6-10.0)
[2021-04-06 06:14] LABS: ALANINE AMINOTRANSFERASE 17 Units/L (12-78); ALBUMIN 2.3 g/dL (3.4-5.0); ALKALINE PHOSPHATASE 69 Units/L (46-116); ASPARTATE AMINO TRANSFERASE 19 Units/L (15-37); BLOOD UREA NITROGEN 11 mg/dL (7-18); CALCIUM 7.8 mg/dL (8.5-10.1); CARBON DIOXIDE 24.8 mmol/L (21-32); CHLORIDE 112 mmol/L (98-107); COR CA(FOR HYPOALB) 9.2 mg/dL (8.5-10.1); CREATININE 1.01 mg/dL (0.55-1.02); SODIUM 145 mmol/L (136-145); TOTAL PROTEIN 5.1 g/dL (6.4-8.2); eGFR NON BLACK RACES 56 (>60)
[2021-04-06] MEDS ORDERED: LEXAPRO ONE (09:05)
[2021-04-06] MEDS: LOVENOX INJ 30 MG SYR SC SCH (09:09)
[2021-04-06] MEDS: COLACE CAP 100 MG PO SCH ×2 (09:22→21:31)
[2021-04-06] MEDS: D5W 1,000 ML IV 1,000 ML IV SCH ×2 (09:30→21:32)
[2021-04-06] MEDS: POTASSIUM CHLORIDE LIQ 20 MEQ UDC PO SCH (09:40)
[2021-04-06] MEDS: PEPCID TAB 20 MG PO SCH (09:48)
[2021-04-06] MEDS: PROTONIX TAB 40 MG PO SCH ×2 (09:50→21:30)
[2021-04-06] MEDS: ROCEPHIN 1 GRAM IV PREMIX 1 G/50 ML IV.SOLN. IV SCH (09:52)
[2021-04-06] MEDS: SYNTHROID 125 mcg TAB PO SCH (09:53)
[2021-04-06] MEDS: TAB-A-VITE PO SCH (09:53)
[2021-04-06] MEDS: VASOTEC TAB 20 MG PO SCH (10:17)
[2021-04-06] MEDS: LEXAPRO PO SCH (10:18)
--- NOTE | 2021-04-06 11:15 | PCM.PROG ---
Progress Note - Progress Note for Day of Date of Exam: 04/06/21 - Subjective Subjective: WAS ADMITTED FOR TREATMENT OF HYPERNATREMIA, RENAL INSUFFICIENCY, UTI, BRONCHITIS, GENERALIZED WEAKNESS, BRADYCARDIA, AND AMS. HYPERNATREMIA HAS RESOLVED. HER PMH INCLUDES: CAD, CHF, CARDIAC ARRHYTHMIA, HTN, HYPERLIPIDEMIA, DEMENTIA, ALZHEIMERS, GERD, DIVERTICULOSIS, CHRONIC CONSTIP ATION, OSTEOARTHRITIS, DEPRESSION, SCHIZOPHRENIA. TODAY, SHE IS ALERT, SITTING UP IN BED ON MORNING ROUNDS. SHE RESPONDS VERBALLY WHEN SPOKEN TO. STAFF REPORTS THAT SHE IS DISORIENTED AT TIMES. SHE CONTINUES WITH GENERALIZED WEAKNESS TODAY. STAFF REPORTS THAT SHE CONTINUES TO BE BRADYCARDIC THROUGHOUT THE DAY. HR DROPS TO THE 30s & 40s. ATROPINE HAS BEEN GIVEN AT BEDTIME AND HER HEART RATE USUALLY REMAINS NORMAL DURING THE NIGHT. ON EXAMINATION, HEART IS REGULAR IN RATE AND RHYTHM. BILATERAL LUNGS NOTED WITH DIMINISHED LUNG SOUNDS THROUGHOUT. ABDOMEN IS ROUND, SOFT, AND NOTED WITH NORMAL BOWEL SOUNDS IN ALL QUADRANTS. HER VITALS THIS MORNING ARE: 98.5-60-18-99%-125/82 LABS WERE OBTAINED. ABNORMAL LAB VALUES INCLUDE THE FOLLOWING: RBC 3.25, HGB 9.2, HCT 26.6, PLT COUNT 130, CHLORIDE 112, CALCIUM 7.8, TOTAL PROTEIN 5.1, ALBUMIN 2.3. URINE CULTURE REVEALS GROWTH OF E.COLI AND KLEBSIELLA PNEUMONIAE. SHE IS CURRENTLY RECEIVING D5W AT 75 ML/HR, ROCPEHIN 1G IV DAILY, ATROPINE 0.5MG IV HS, ZOFRAN 4MG IV Q6H PRN, AND HER HOME MEDICATIONS WERE RESUMED. WE WILL CONTINUE WITH CURRENT PLAN OF CARE TODAY. CARDIOLOGY WILL CONSULT WITH HER TOMORROW. OTHERWISE, WE PLAN TO FOLLOW UP WITH AM LABS AND CONTINUE TO MONITOR. TIME SPENT ON CLINICAL ASSESSMENT, REVIEWING LABS AND IMAGING, DECISION MAKING, AND DOCUMENTATION GREATER THAN 45 MINUTES. - Past Medical Family Social History Past Med/Fam/Surg Hx: No changes since H&P Allergies: Allergies propoxyphene [From Darvon] Allergy (Verified 03/30/21 10:36) - Review of Systems ROS: No change since H&P - Vital Signs and I&O's Vital Signs: Temperature 98.5 F Pulse Rate [Left Brachial] 49 Pulse Rate [Right Radial] 58 Pulse Rate 45 Respiratory Rate 12 Blood Pressure [Left Arm] 150/63 Blood Pressure [Right Arm] 176/97 Blood Pressure 114/62 O2 Sat by Pulse Oximetry 100 Intake and Output: Intake & Output 04/03/21 04/04/21 04/05/21 04/06/21 11:59 11:59 11:59 11:59 Intake Total 1565 / 1565 2637 / 2637 2650 / 2650 1180 / 1180 Output Total 1300 / 1300 1350 / 1350 2450 / 2450 2075 / 2075 Balance 265 / 265 1287 / 1287 200 / 200 -895 / -895 - Physical Exam Oriented: Not Oriented Eyes: Normal Ear: Normal Nose: Normal Throat: Normal Respiratory: Generalized, Diminished Cardiovascular: Bradycardia : Normal Auscultation: Bowel Sounds: Normal Tenderness: Normal Skin: Decreased Turgur Musculoskeletal: Normal Psychiatric: Normal Mood Description: Flat Affect: Flat Speech Pattern: Unclear, Delayed - Laboratory and Diagnostics Result Diagrams: 04/06/21 05:25 04/06/21 05:25 Labs: 03/30/21 11:20 Blood Blood Culture - Final 03/30/21 11:10 Blood Blood Culture - Final 03/30/21 11:40 Urine,Catheterized Urine Culture - Final Escherichia Coli Escherichia Coli#2 Klebsiella Pneumoniae Laboratory WBC 4.9 X10^3/uL (3.6-10.0) 04/06/21 05:25 RBC 3.25 X10^6/uL (3.5-5.4) L 04/06/21 05:25 Hgb 9.2 g/dL (12.0-16.0) L 04/06/21 05:25 Hct 26.6 % (36.0-47.0) L 04/06/21 05:25 MCV 82.1 fL (80.0-100.0) 04/06/21 05:25 MCH 28.4 pg (27.0-34.0) 04/06/21 05:25 MCHC 34.6 g/dL (33.0-35.0) 04/06/21 05:25 RDW 15.5 % (11.6-16.5) 04/06/21 05:25 Plt Count 130 X10^3/uL (150.0-450.0) L 04/06/21 05:25 MPV 9.3 fL (7.4-11.0) 04/06/21 05:25 Neut % (Auto) 47.5 % (42.0-75.0) 04/06/21 05:25 Lymph % (Auto) 31.5 % (21.0-51.0) 04/06/21 05:25 [place] % (Auto) 16.3 % (0.0-13.0) H 04/06/21 05:25 Eos % (Auto) 3.8 % (0.9-2.9) H 04/06/21 05:25 Baso % (Auto) 0.9 % (0.2-1.0) 04/06/21 05:25 Neut # (Auto) 2.3 x10^3/uL (2.2-4.8) 04/06/21 05:25 Lymph # (Auto) 1.6 X10^3/uL (1.3-2.9) 04/06/21 05:25 Andrew # (Auto) 0.8 x10^3/uL (0.3-0.8) 04/06/21 05:25 Eos # (Auto) 0.2 x10^3/uL (0.0-0.2) 04/06/21 05:25 Baso # (Auto) 0.0 X10^3/uL (0.0-0.1) 04/06/21 05:25 Absolute Nucleated RBC 0.0 /100WBC 04/06/21 05:25 Sodium 145 mmol/L (136-145) 04/06/21 05:25 Corrected Sodium TNP 04/06/21 05:25 Potassium 4.1 mmol/L (3.5-5.1) 04/06/21 05:25 Chloride 112 mmol/L (98-107) H 04/06/21 05:25 Carbon Dioxide 24.8 mmol/L (21-32) 04/06/21 05:25 BUN 11 mg/dL (7-18) 04/06/21 05:25 Creatinine 1.01 mg/dL (0.55-1.02) 04/06/21 05:25 Est GFR (MDRD) Af Amer > 60 (>60) 04/06/21 05:25 Est GFR (MDRD) Non-Af 56 (>60) L 04/06/21 05:25 Glucose 98 mg/dL (65-99) 04/06/21 05:25 POC Glucose (mg/dL) 77 mg/dL (65-99) 04/01/21 16:19 Lactic Acid 0.8 mmol/L (0.4-2.0) 03/31/21 07:26 Calcium 7.8 mg/dL (8.5-10.1) L 04/06/21 05:25 Corrected Calcium 9.2 mg/dL (8.5-10.1) 04/06/21 05:25 Magnesium 2.6 mg/dL (1.7-2.9) 03/31/21 04:37 Total Bilirubin 0.40 mg/dL (0.2-1.0) 04/06/21 05:25 AST 19 Units/L (15-37) 04/06/21 05:25 ALT 17 Units/L (12-78) 04/06/21 05:25 Alkaline Phosphatase 69 Units/L (46-116) 04/06/21 05:25 Creatine Kinase 260 Units/L (26-192) H 03/31/21 04:37 CK-MB (CK-2) 4.8 ng/mL (0-4.0) H* 03/31/21 04:37 CK/CKMB % Calc 1.9 % (<4) 03/31/21 04:37 Troponin I High Sens 39.0 ng/L (4.0-60.0) 03/31/21 04:37 Total Protein 5.1 g/dL (6.4-8.2) L 04/06/21 05:25 Albumin 2.3 g/dL (3.4-5.0) L 04/06/21 05:25 Globulin 2.8 g/dL (2.5-4.5) 04/06/21 05:25 Albumin/Globulin Ratio 0.8 Ratio (1.1-2.1) L 04/06/21 05:25 Specimen Type Catherized urine 03/30/21 11:40 Urine Color Yellow (YELLOW) 03/30/21 11:40 Urine Appearance Clear (CLEAR) 03/30/21 11:40 Urine pH 5.0 (5.0 - 8.0) 03/30/21 11:40 Ur Specific [place] 1.020 (1.000-1.030) 03/30/21 11:40 Urine Protein 1+ (NEGATIVE) 03/30/21 11:40 Urine Glucose (UA) Negative (NEGATIVE) 03/30/21 11:40 Urine Ketones Negative (NEGATIVE) 03/30/21 11:40 Urine Occult Blood 1+ (NEGATIVE) 03/30/21 11:40 Urine Nitrite Negative (NEGATIVE) 03/30/21 11:40 Urine Bilirubin 1+ (NEGATIVE) 03/30/21 11:40 Urine Urobilinogen 1+ (NORMAL) 03/30/21 11:40 Ur Leukocyte Esterase 2+ (NEGATIVE) 03/30/21 11:40 Urine RBC 3-5 /HPF (0-3) A 03/30/21 11:40 Urine WBC 3-5 /HPF (0-5) 03/30/21 11:40 Ur Squamous Epith Cells Rare /HPF (NEGATIVE) 03/30/21 11:40 Amorphous Sediment 1+ /HPF (NEGATIVE) 03/30/21 11:40 Urine Bacteria 1+ /HPF (NEGATIVE) 03/30/21 11:40 Ur Culture Indicated? Yes/culture set up 03/30/21 11:40 SARS-CoV-2 (PCR) Negative (NEGATIVE) 03/30/21 12:25 Influenza Type A (PCR) Negative (NEGATIVE) 03/30/21 12:25 Influenza Type B (PCR) Negative (NEGATIVE) 03/30/21 12:25 RSV (PCR) Negative (NEGATIVE) 03/30/21 12:25 - Plan (1) Hypernatremia Status: Acute Plan: D5W AT 75 ML/HR, ROCPEHIN 1G IV DAILY, ZOFRAN 4MG IV Q6H PRN, AND HER HOME MEDICATIONS WERE RESUMED. (2) Renal insufficiency Status: Acute (3) UTI (urinary tract infection) Status: Acute Qualifiers: Urinary tract infection type: acute cystitis Hematuria presence: with hematuria Qualified Code(s): N30.01 - Acute cystitis with hematuria (4) Bronchitis Status: Acute (5) Altered mental status Status: Acute Qualifiers: Altered mental status type: transient alteration of awareness Qualified Code(s): R40.4 - Transient alteration of awareness (6) Bradycardia Status: Acute Plan: ATROPINE 0.5MG IV HS
[2021-04-06 17:38] VITALS: BMI 31.4
[2021-04-06] MEDS: NEURONTIN CAP 100 MG PO SCH (21:31)
[2021-04-06] MEDS: LIPITOR TAB 10 MG PO SCH (21:31)
[2021-04-07] MEDS: CARAFATE PO SCH (06:19)
[2021-04-07 06:42] LABS: BASOPHILS % (AUTO) 0.6 % (0.2-1.0); EOSINOPHILS # (AUTO) 0.2 x10^3/uL (0.0-0.2); EOSINOPHILS % (AUTO) 3.8 % (0.9-2.9); HEMATOCRIT 29.2 % (36.0-47.0); LYMPHOCYTES % (AUTO) 37.1 % (21.0-51.0); MEAN CORPUSCULAR HEMOGLOBIN 28.3 pg (27.0-34.0); MEAN CORPUSCULAR HGB CONC 34.3 g/dL (33.0-35.0); MEAN CORPUSCULAR VOLUME 82.7 fL (80.0-100.0); MEAN PLATELET VOLUME 9.3 fL (7.4-11.0); MONOCYTES # (AUTO) 0.7 x10^3/uL (0.3-0.8); NEUTROPHILS # (AUTO) 2.4 x10^3/uL (2.2-4.8); NEUTROPHILS % (AUTO) 44.5 % (42.0-75.0); RED BLOOD COUNT 3.52 X10^6/uL (3.5-5.4); RED CELL DISTRIBUTION WIDTH 15.5 % (11.6-16.5); WHITE BLOOD COUNT 5.3 X10^3/uL (3.6-10.0)
[2021-04-07 07:11] LABS: ALANINE AMINOTRANSFERASE 17 Units/L (12-78); ALBUMIN 2.4 g/dL (3.4-5.0); ALKALINE PHOSPHATASE 79 Units/L (46-116); ASPARTATE AMINO TRANSFERASE 31 Units/L (15-37); BLOOD UREA NITROGEN 11 mg/dL (7-18); CALCIUM 8.2 mg/dL (8.5-10.1); CARBON DIOXIDE 27.2 mmol/L (21-32); CHLORIDE 113 mmol/L (98-107); COR CA(FOR HYPOALB) 9.5 mg/dL (8.5-10.1); CREATININE 0.96 mg/dL (0.55-1.02); SODIUM 144 mmol/L (136-145); TOTAL PROTEIN 5.5 g/dL (6.4-8.2); eGFR NON BLACK RACES 59 (>60)
[2021-04-07 07:51] VITALS: BP 134/62
[2021-04-07] MEDS ORDERED: LEXAPRO ONE (08:11)
[2021-04-07] MEDS: POTASSIUM CHLORIDE LIQ 20 MEQ UDC PO SCH (09:02)
[2021-04-07] MEDS: LEXAPRO PO SCH (09:02)
[2021-04-07] MEDS: PROTONIX TAB 40 MG PO SCH (09:02)
[2021-04-07] MEDS: COLACE CAP 100 MG PO SCH (09:02)
[2021-04-07] MEDS: ROCEPHIN 1 GRAM IV PREMIX 1 G/50 ML IV.SOLN. IV SCH (09:02)
[2021-04-07] MEDS: SYNTHROID 125 mcg TAB PO SCH (09:03)
[2021-04-07] MEDS: VASOTEC TAB 20 MG PO SCH (09:03)
[2021-04-07] MEDS: TAB-A-VITE PO SCH (09:03)
[2021-04-07] MEDS: LOVENOX INJ 30 MG SYR SC SCH (09:03)
== END 2021-04-07 10:00 | DRG 690 ==
LOC: ER 10:36 → MED/SURG 14:17
PROVIDERS: ADMIT Internal Medicine; ATTEND Internal Medicine
DX: B96.1 Klebsiella pneumoniae [K. pneumoniae] as the cause of diseases classified elsewhere; R94.31 Abnormal electrocardiogram [ECG] [EKG]; J20.8 Acute bronchitis due to other specified organisms; F02.80 Dementia in other diseases classified elsewhere, unspecified severity, without behavioral disturbance, psychotic disturbance, mood disturbance, and anxiety; E87.0 Hyperosmolality and hypernatremia; G30.8 Other Alzheimer's disease; N28.9 Disorder of kidney and ureter, unspecified; B96.29 Other Escherichia coli [E. coli] as the cause of diseases classified elsewhere; N30.01 Acute cystitis with hematuria; R00.1 Bradycardia, unspecified; R40.4 Transient alteration of awareness; Z20.822 Contact with and (suspected) exposure to COVID-19; E86.0 Dehydration; E78.2 Mixed hyperlipidemia; K59.09 Other constipation; I25.10 Atherosclerotic heart disease of native coronary artery without angina pectoris

== ENCOUNTER 2021-04-20 11:55 | Inpatient (IN) ==
[2021-04-20] MEDS ORDERED: PHARMACY CONSULT LTC MEDICATIONS XX SCH (16:00)
[2021-04-20 18:10] LABS: BILIRUBIN,URINE NEGATIVE (NEGATIVE); BLOOD/HEMOGLOBIN,URINE NEGATIVE (NEGATIVE); GLUCOSE, URINE NEGATIVE (NEGATIVE); KETONES,URINE NEGATIVE (NEGATIVE); LEUKOCYTE ESTERASE ,URINE 1+ (NEGATIVE); NITRITES,URINE NEGATIVE (NEGATIVE); PROTEIN,URINE NEGATIVE (NEGATIVE); UROBILINOGEN,URINE NORMAL (NORMAL)
[2021-04-20 18:14] LABS: APPEARANCE,URINE CLEAR (CLEAR); COLOR,URINE YELLOW (YELLOW)
[2021-04-20 18:16] LABS: BACTERIA,URINE TRACE /HPF (NEGATIVE); RBC,URINE 0-2 /HPF (0-3); SQUAMOUS EPITHELIAL CELL,UR MODERATE /HPF (NEGATIVE)
[2021-04-20] MEDS: D5W 1,000 ML IV 1,000 ML IV SCH (18:26)
[2021-04-21] MEDS: D5W 1,000 ML IV 1,000 ML IV SCH ×2 (05:44→17:50)
[2021-04-21 06:55] LABS: BASOPHILS % (AUTO) 0.4 % (0.2-1.0); EOSINOPHILS # (AUTO) 0.3 x10^3/uL (0.0-0.2); EOSINOPHILS % (AUTO) 3.7 % (0.9-2.9); HEMATOCRIT 31.2 % (36.0-47.0); HEMOGLOBIN 10.5 g/dL (12.0-16.0); LYMPHOCYTES # (AUTO) 3.3 X10^3/uL (1.3-2.9); LYMPHOCYTES % (AUTO) 39.4 % (21.0-51.0); MEAN CORPUSCULAR HEMOGLOBIN 28.6 pg (27.0-34.0); MEAN CORPUSCULAR HGB CONC 33.7 g/dL (33.0-35.0); MEAN CORPUSCULAR VOLUME 84.9 fL (80.0-100.0); MEAN PLATELET VOLUME 9.1 fL (7.4-11.0); MONOCYTES % (AUTO) 12.2 % (0.0-13.0); NEUTROPHILS # (AUTO) 3.7 x10^3/uL (2.2-4.8); NEUTROPHILS % (AUTO) 44.3 % (42.0-75.0); RED BLOOD COUNT 3.68 X10^6/uL (3.5-5.4); RED CELL DISTRIBUTION WIDTH 16.8 % (11.6-16.5)
[2021-04-21 07:08] LABS: ALANINE AMINOTRANSFERASE 18 Units/L (12-78); ALBUMIN 2.6 g/dL (3.4-5.0); ALKALINE PHOSPHATASE 77 Units/L (46-116); ASPARTATE AMINO TRANSFERASE 23 Units/L (15-37); BLOOD UREA NITROGEN 33 mg/dL (7-18); CALCIUM 8.4 mg/dL (8.5-10.1); CARBON DIOXIDE 25.4 mmol/L (21-32); COR CA(FOR HYPOALB) 9.5 mg/dL (8.5-10.1); CREATININE 1.59 mg/dL (0.55-1.02); TOTAL PROTEIN 5.8 g/dL (6.4-8.2); eGFR NON BLACK RACES 33 (>60)
[2021-04-21 07:20] LABS: CHLORIDE 122 mmol/L (98-107); SODIUM 156 mmol/L (136-145)
[2021-04-21 07:25] LABS: PLATELET MORPHOLOGY COMMENT NORMAL (NORMAL)
[2021-04-21 07:26] LABS: OVALOCYTES PRESENT; WHITE BLOOD COUNT 8.4 X10^3/uL (3.6-10.0)
--- NOTE | 2021-04-21 08:42 | DR.H&P ---
H&P - History & Physical for Day of: H&P Date: 04/20/21 - Chief Complaint Chief Complaint: ALTERED MENTAL STATUS, ELEVEATED SODIUM PER OUTPATIENT LABS - History of Present Illness History of Present Illness: IS A 81 YEAR OLD PATIENT OF OURS. SHE IS A RESIDENT OF [facility]. SHE PRESENTED TO THE HOSPITAL A DIRECT ADMISSION DUE TO ELEVATED SODIUM LEVELS AND ALTERED MENTAL STATUS. STAFF REPORTS THAT PATIENT HAS HAD MENTAL STATUS CHANGE AND DECREASED RESPONSIVENESS X 1 DAY. OUTPATIENT LABS WERE OBTAINED AND REVEALED THE FOLLOWING ABNORMAL LAB VALUES: HGB 10.5, HCT 30.8, SODIUM 160, CHLORIDE 126, BUN 37, CREATININE 1.73, GLUCOSE 103. CALCIUM 8.4, TOTAL PROTEIN 5.8, ALBUMIN 2.7. ON ARRIVAL TO THE HOSPITAL, PATIENT WAS NOTED TO BE LETHARGIC. SHE DID OPEN EYES TO VERBAL STIMULI, BUT WAS DISORIENTED. HER PMH INCLUDES: CAD, CHF, CARDIAC ARRHYTHMIA, HTN, HYPERLIPIDEMIA, DEMENTIA, ALZHEIMERS, GERD, DIVERTICULOSIS, CHRONIC CONSTIPATION, OSTEOARTHRITIS, DEPRESSION, SCHIZOPHRENIA. UNKNOWN SURGICAL HISTORY. ON ARRIVAL, HER VITALS WERE 99.7-73-20-95%-134/92. URINALYSIS OBTAINED AND REVEALED: RBC 0-5, RBC 3-5, LEUKOCYTES 1+, BACTERIA TRACE. A URINE CULTURE WAS SET UP. COVID, INFLUENZA, AND RSV WERE NEGATIVE. SHE WAS STARTED ON D5W AT 80 ML/HR. WE WILL REVIEW HER HOME MEDICATIONS AND RESUME APPROPRIATE. OTHERWISE, WE PLAN TO FOLLOW UP WITH AM LABS AND CONTINUE TO MONITOR. TIME SPENT ON CLINICAL ASSESSMENT, REVIEWING LABS AND IMAGING, DECISION MAKING, AND DOCUMENTATION GREATER THAN 75 MINUTES. - Past Medical History Past Medical History: Coronary Artery Disease, Hypertension, Dyslipidemia, Schizophrenia, Dementia, Depression, Hypothyroidism, GERD, Arthritis, CHF - Past Surgical History Surgical History: Ortho Surgery - Family History Family Medical History: Hypertension - Social History Does patient currently use any type of tobacco product: No Have you used tobacco products in the last 12 months: No Type of Tobacco Use: None Does any household member use tobacco: No Alcohol Use: None Drug Use: None - Medications Home Medications: propoxyphene [From Darvon] Allergy (Verified 03/30/21 10:36) - Review of Systems Constitutional: Weakness Eyes: No Symptoms Reported ENT: No Symptoms Reported Respiratory: No Symptoms Reported Cardiovascular: No Symptoms Reported Gastrointestinal: No Symptoms Reported Genitourinary: No Symptoms Reported Musculoskeletal: No Symptoms Reported Skin: No Symptoms Reported Neurological: See HPI, Weakness, Confusion - Physical Exam Vital Signs: Temperature 98.6 F Pulse Rate [Left Radial] 61 Respiratory Rate 20 Blood Pressure [Left Arm] 136/91 Blood Pressure 115/73 O2 Sat by Pulse Oximetry 98 Oriented: Not Oriented Eyes: Normal Ear: Normal Nose: Normal Throat: Normal Respiratory: Diminished Throughout Cardiovascular: Normal : Normal Auscultation: Bowel Sounds: Normal Palpation: Normal Tenderness: Normal Skin: Normal Musculoskeletal: Normal Psychiatric: Normal Mood Description: Flat Affect: Normal Speech Pattern: Inappropriate - Assessment/Plan (1) Hypernatremia Status: Acute Plan: ADMIT, D5W AT 80 ML/HR, REVIEW HOME MEDICATIONS, CHECK AM LABS (2) Renal insufficiency Status: Acute (3) Altered mental status Qualifiers: Altered mental status type: transient alteration of awareness Status: Acute (4) HTN (hypertension) Qualifiers: Hypertension type: primary hypertension Qualified Code(s): I10 - Essential (primary) hypertension Status: Chronic (5) Hyperlipidemia Qualifiers: Hyperlipidemia type: mixed hyperlipidemia Qualified Code(s): E78.2 - Mixed hyperlipidemia Status: Chronic (6) GERD (gastroesophageal reflux disease) Qualifiers: Esophagitis presence: esophagitis presence not specified Qualified Code(s): K21.9 - Gastro-esophageal reflux disease without esophagitis Status: Chronic (7) CAD (coronary artery disease) Qualifiers: Coronary Disease-Associated Artery/Lesion type: [place] artery [place] vs. transplanted heart: [place] heart Associated angina: without angina Qualified Code(s): I25.10 - Atherosclerotic heart disease of [place] coronary artery without angina pectoris Status: Chronic (8) CHF (congestive heart failure) Qualifiers: Heart failure type: unspecified Heart failure chronicity: chronic Qualified Code(s): I50.9 - Heart failure, unspecified Status: Chronic (9) Dementia Qualifiers: Dementia type: unspecified type Dementia behavioral disturbance: without behavioral disturbance Qualified Code(s): F03.90 - Unspecified dementia without behavioral disturbance Status: Chronic - Allergies Allergies/Adverse Reactions: Allergies Allergy/AdvReac Type Severity Reaction Status Date / Time propoxyphene [From Darvon] Allergy Verified 03/30/21 10:36
[2021-04-21] MEDS: LOVENOX INJ 30 MG SYR SC SCH (12:40)
[2021-04-22 06:41] LABS: BASOPHILS % (AUTO) 0.4 % (0.2-1.0); EOSINOPHILS # (AUTO) 0.2 x10^3/uL (0.0-0.2); EOSINOPHILS % (AUTO) 4.4 % (0.9-2.9); HEMATOCRIT 27.4 % (36.0-47.0); HEMOGLOBIN 9.4 g/dL (12.0-16.0); LYMPHOCYTES # (AUTO) 1.9 X10^3/uL (1.3-2.9); LYMPHOCYTES % (AUTO) 34.8 % (21.0-51.0); MEAN CORPUSCULAR HEMOGLOBIN 28.6 pg (27.0-34.0); MEAN CORPUSCULAR HGB CONC 34.3 g/dL (33.0-35.0); MEAN CORPUSCULAR VOLUME 83.3 fL (80.0-100.0); MEAN PLATELET VOLUME 8.9 fL (7.4-11.0); MONOCYTES # (AUTO) 0.7 x10^3/uL (0.3-0.8); MONOCYTES % (AUTO) 13.4 % (0.0-13.0); NEUTROPHILS # (AUTO) 2.5 x10^3/uL (2.2-4.8); RED BLOOD COUNT 3.28 X10^6/uL (3.5-5.4); RED CELL DISTRIBUTION WIDTH 15.8 % (11.6-16.5); WHITE BLOOD COUNT 5.3 X10^3/uL (3.6-10.0)
[2021-04-22 07:06] LABS: ALANINE AMINOTRANSFERASE 17 Units/L (12-78); ALBUMIN 2.3 g/dL (3.4-5.0); ALKALINE PHOSPHATASE 69 Units/L (46-116); ASPARTATE AMINO TRANSFERASE 25 Units/L (15-37); BLOOD UREA NITROGEN 23 mg/dL (7-18); CALCIUM 7.8 mg/dL (8.5-10.1); CARBON DIOXIDE 21.8 mmol/L (21-32); CHLORIDE 113 mmol/L (98-107); COR CA(FOR HYPOALB) 9.2 mg/dL (8.5-10.1); CREATININE 1.07 mg/dL (0.55-1.02); SODIUM 146 mmol/L (136-145); TOTAL PROTEIN 5.1 g/dL (6.4-8.2); eGFR NON BLACK RACES 52 (>60)
[2021-04-22] MEDS: D5W 1,000 ML IV 1,000 ML IV SCH ×2 (07:06→09:59)
--- NOTE | 2021-04-22 08:41 | PCM.PROG ---
Progress Note - Progress Note for Day of Date of Exam: 04/21/21 - Subjective Subjective: WAS ADMITTED FOR TREATMENT OF HYPERNATREMIA, RENAL INSUFFICIENCY, AND ALTERED MENTAL STATUS. TODAY, SHE IS LYING IN BED WITH EYES CLOSED ON MORNING ROUNDS. SHE OPENS EYES TO VERBAL STIMULI. PATIENT IS DISORIENTED. SHE DOES HAVE A HISTORY OF DEMENTIA. ON EXAMINATION, HEART IS REGULAR IN RATE AND RHYTHM. BILATERAL LUNGS NOTED WITH DIMINISHED LUNG SOUNDS THROUGHOUT. ABDOMEN IS ROUND, SOFT, AND NON-TENDER WITH NORMAL BOWEL SOUNDS NOTED IN ALL QUADRANTS. NO UPPER OR LOWER EXTREMITY EDEMA NOTED. HER VITALS THIS MORNING ARE: 98.8-62-20-95%-126/80. LABS WERE OBTAINED. ABNORMAL LAB VALUES INCLUDE THE FOLLOWING: HGB 10.5, HCT 31.2, SODIUM 156, CHLORIDE 122, BUN 33, CREATININE 1.59, GLUCOSE 106, CALCIUM 8.4, TOTAL PROTEIN 5.8, ALBUMIN 2.6. URINE CULTURE IS PENDING, BUT PRELIMINARY REPORTS GROWTH OF GRAM POSITIVE COCCI. SHE IS CURRENTLY RECEIVING D5W AT 80 ML/HR, LOVENOX 30MG SC DAILY. WE WILL ADD INVANZ 1G IV DAILY AND WILL RESUME HER HOME MEDICATIONS. PATIENT HAD BEEN RECEIVING DOXYCYCLINE 100MG PO BID FOR THE PAST TWO WEEKS FOR TREATMENT OF E.COLI AND KLEBSIELLA IN URINE. OTHERWISE, WE PLAN TO FOLLOW UP WITH AM LABS AND CONTINUE TO MONITOR. TIME SPENT ON CLINICAL ASSESSMENT, REVIEWING LABS AND IMAGING, DECISION MAKING, AND DOCUMENTATION GREATER THAN 45 MINUTES. - Past Medical Family Social History Past Med/Fam/Surg Hx: No changes since H&P Allergies: Allergies propoxyphene [From Darvon] Allergy (Verified 03/30/21 10:36) - Review of Systems ROS: No change since H&P - Vital Signs and I&O's Vital Signs: Temperature 98.4 F Pulse Rate [Left Radial] 58 Respiratory Rate 20 Blood Pressure [Left Arm] 139/78 Blood Pressure 115/73 O2 Sat by Pulse Oximetry 97 Intake and Output: Intake & Output 04/19/21 04/20/21 04/21/21 04/22/21 11:59 11:59 11:59 11:59 Intake Total 1010 / 1010 2811 / 2811 Balance 1010 / 1010 2811 / 2811 - Physical Exam Oriented: Not Oriented Eyes: Normal Ear: Normal Nose: Normal Throat: Normal Respiratory: Generalized, Diminished Cardiovascular: Normal : Normal Auscultation: Bowel Sounds: Normal Palpation: Normal Tenderness: Normal Skin: Normal Musculoskeletal: Normal Psychiatric: Normal Mood Description: Flat Affect: Normal Speech Pattern: Unclear - Laboratory and Diagnostics Result Diagrams: 04/22/21 05:34 04/22/21 05:34 Labs: 04/20/21 18:05 Urine,Catheterized Urine Culture - Preliminary Laboratory WBC 5.3 X10^3/uL (3.6-10.0) 04/22/21 05:34 RBC 3.28 X10^6/uL (3.5-5.4) L 04/22/21 05:34 Hgb 9.4 g/dL (12.0-16.0) L 04/22/21 05:34 Hct 27.4 % (36.0-47.0) L 04/22/21 05:34 MCV 83.3 fL (80.0-100.0) 04/22/21 05:34 MCH 28.6 pg (27.0-34.0) 04/22/21 05:34 MCHC 34.3 g/dL (33.0-35.0) 04/22/21 05:34 RDW 15.8 % (11.6-16.5) 04/22/21 05:34 Plt Count 169 X10^3/uL (150.0-450.0) 04/22/21 05:34 Plt Count Comment Adequate (ADEQUATE) 04/21/21 06:17 MPV 8.9 fL (7.4-11.0) 04/22/21 05:34 Neut % (Auto) 47.0 % (42.0-75.0) 04/22/21 05:34 Lymph % (Auto) 34.8 % (21.0-51.0) 04/22/21 05:34 [place] % (Auto) 13.4 % (0.0-13.0) H 04/22/21 05:34 Eos % (Auto) 4.4 % (0.9-2.9) H 04/22/21 05:34 Baso % (Auto) 0.4 % (0.2-1.0) 04/22/21 05:34 Neut # (Auto) 2.5 x10^3/uL (2.2-4.8) 04/22/21 05:34 Lymph # (Auto) 1.9 X10^3/uL (1.3-2.9) 04/22/21 05:34 [place] # (Auto) 0.7 x10^3/uL (0.3-0.8) 04/22/21 05:34 Eos # (Auto) 0.2 x10^3/uL (0.0-0.2) 04/22/21 05:34 Baso # (Auto) 0.0 X10^3/uL (0.0-0.1) 04/22/21 05:34 Absolute Nucleated RBC 0.0 /100WBC 04/22/21 05:34 Plt Clumps, EDTA Few 04/21/21 06:17 Plt Morphology Comment Normal (NORMAL) 04/21/21 06:17 RBC Morphology Abnormal (NORMAL) A 04/21/21 06:17 Ovalocytes Present 04/21/21 06:17 Acanthocytes (Spur) Present 04/21/21 06:17 Sodium 146 mmol/L (136-145) H 04/22/21 05:34 Corrected Sodium TNP 04/22/21 05:34 Potassium 3.7 mmol/L (3.5-5.1) 04/22/21 05:34 Chloride 113 mmol/L (98-107) H 04/22/21 05:34 Carbon Dioxide 21.8 mmol/L (21-32) 04/22/21 05:34 BUN 23 mg/dL (7-18) H 04/22/21 05:34 Creatinine 1.07 mg/dL (0.55-1.02) H 04/22/21 05:34 Est GFR (MDRD) Af Amer > 60 (>60) 04/22/21 05:34 Est GFR (MDRD) Non-Af 52 (>60) L 04/22/21 05:34 Glucose 102 mg/dL (65-99) H 04/22/21 05:34 Calcium 7.8 mg/dL (8.5-10.1) L 04/22/21 05:34 Corrected Calcium 9.2 mg/dL (8.5-10.1) 04/22/21 05:34 Total Bilirubin 0.70 mg/dL (0.2-1.0) 04/22/21 05:34 AST 25 Units/L (15-37) 04/22/21 05:34 ALT 17 Units/L (12-78) 04/22/21 05:34 Alkaline Phosphatase 69 Units/L (46-116) 04/22/21 05:34 Total Protein 5.1 g/dL (6.4-8.2) L 04/22/21 05:34 Albumin 2.3 g/dL (3.4-5.0) L 04/22/21 05:34 Globulin 2.8 g/dL (2.5-4.5) 04/22/21 05:34 Albumin/Globulin Ratio 0.8 Ratio (1.1-2.1) L 04/22/21 05:34 Specimen Type Catherized urine 04/20/21 18:05 Urine Color Yellow (YELLOW) 04/20/21 18:05 Urine Appearance Clear (CLEAR) 04/20/21 18:05 Urine pH 5.0 (5.0 - 8.0) 04/20/21 18:05 Ur Specific [place] 1.010 (1.000-1.030) 04/20/21 18:05 Urine Protein Negative (NEGATIVE) 04/20/21 18:05 Urine Glucose (UA) Negative (NEGATIVE) 04/20/21 18:05 Urine Ketones Negative (NEGATIVE) 04/20/21 18:05 Urine Occult Blood Negative (NEGATIVE) 04/20/21 18:05 Urine Nitrite Negative (NEGATIVE) 04/20/21 18:05 Urine Bilirubin Negative (NEGATIVE) 04/20/21 18:05 Urine Urobilinogen Normal (NORMAL) 04/20/21 18:05 Ur Leukocyte Esterase 1+ (NEGATIVE) 04/20/21 18:05 Urine RBC 0-2 /HPF (0-3) 04/20/21 18:05 Urine WBC 3-5 /HPF (0-5) 04/20/21 18:05 Ur Squamous Epith Cells Moderate /HPF (NEGATIVE) 04/20/21 18:05 Urine Bacteria Trace /HPF (NEGATIVE) 04/20/21 18:05 Ur Culture Indicated? No/not indicated 04/20/21 18:05 - Plan (1) Hypernatremia Status: Acute Plan: D5W AT 80 ML/HR, LOVENOX 30MG SC DAILY, RESUME HOME MEDS, CHECK AM LABS (2) Renal insufficiency Status: Acute (3) UTI (urinary tract infection) Status: Acute Qualifiers: Urinary tract infection type: acute cystitis Hematuria presence: with hematuria Qualified Code(s): N30.01 - Acute cystitis with hematuria Plan: INVANZ 1G IV DAILY (4) Altered mental status Status: Acute Qualifiers: Altered mental status type: transient alteration of awareness (5) HTN (hypertension) Status: Chronic Qualifiers: Hypertension type: primary hypertension Qualified Code(s): I10 - Essential (primary) hypertension (6) Hyperlipidemia Status: Chronic Qualifiers: Hyperlipidemia type: mixed hyperlipidemia Qualified Code(s): E78.2 - Mixed hyperlipidemia (7) GERD (gastroesophageal reflux disease) Status: Chronic Qualifiers: Esophagitis presence: esophagitis presence not specified Qualified Code(s): K21.9 - Gastro-esophageal reflux disease without esophagitis (8) CAD (coronary artery disease) Status: Chronic Qualifiers: Coronary Disease-Associated Artery/Lesion type: [place] artery [place] vs. transplanted heart: [place] heart Associated angina: without angina Qualified Code(s): I25.10 - Atherosclerotic heart disease of [place] coronary artery without angina pectoris (9) CHF (congestive heart failure) Status: Chronic Qualifiers: Heart failure type: unspecified Heart failure chronicity: chronic Qualified Code(s): I50.9 - Heart failure, unspecified (10) Dementia Status: Chronic Qualifiers: Dementia type: unspecified type Dementia behavioral disturbance: without behavioral disturbance Qualified Code(s): F03.90 - Unspecified dementia without behavioral disturbance
[2021-04-22] MEDS ORDERED: INVanz INJ 1 GRAM VIAL 1 G in NS 100 ML IV 100 ML IV SCH (09:00)
[2021-04-22] MEDS ORDERED: LEXAPRO ONE (09:48)
[2021-04-22] MEDS: LOVENOX INJ 30 MG SYR SC SCH (10:00)
[2021-04-22] MEDS: SYNTHROID 125 mcg TAB PO SCH (10:07)
[2021-04-22] MEDS: PROTONIX TAB 40 MG PO SCH ×2 (10:07→21:42)
[2021-04-22] MEDS: VASOTEC TAB 20 MG PO SCH ×2 (10:07→21:43)
[2021-04-22] MEDS: TAB-A-VITE PO SCH (10:08)
[2021-04-22] MEDS: LEXAPRO PO SCH (10:08)
[2021-04-22] MEDS: ULTRAM PO SCH ×2 (10:08→21:43)
[2021-04-22] MEDS: POTASSIUM CHLORIDE LIQ 20 MEQ UDC PO SCH (10:09)
[2021-04-22] MEDS: CARAFATE PO SCH ×3 (10:09→21:43)
[2021-04-22] MEDS: PEPCID TAB 20 MG PO SCH (10:09)
[2021-04-22] MEDS: COLACE CAP 100 MG PO SCH ×2 (10:09→21:41)
[2021-04-22] MEDS: ALBUMIN HUMAN 25%- 100 ML 100 ML IV SCH (10:10)
--- NOTE | 2021-04-22 10:38 | PCM.PROG ---
Progress Note - Progress Note for Day of Date of Exam: 04/22/21 - Subjective Subjective: WAS ADMITTED FOR TREATMENT OF HYPERNATREMIA, RENAL INSUFFICIENCY, UTI, AND ALTERED MENTAL STATUS. TODAY, SHE IS LYING IN BED WITH EYES CLOSED ON MORNING ROUNDS. SHE OPENS EYES TO VERBAL STIMULI. PATIENT IS DISORIENTED. SHE DOES HAVE A HISTORY OF DEMENTIA. ON EXAMINATION, HEART IS RE GULAR IN RATE AND RHYTHM. BILATERAL LUNGS NOTED WITH DIMINISHED LUNG SOUNDS THROUGHOUT. ABDOMEN IS ROUND, SOFT, AND NON-TENDER WITH NORMAL BOWEL SOUNDS NOTED IN ALL QUADRANTS. NO UPPER OR LOWER EXTREMITY EDEMA NOTED. HER VITALS THIS MORNING ARE: 98.4-58-20-97%-139/78. LABS WERE OBTAINED. ABNORMAL LAB VALUES INCLUDE THE FOLLOWING: RBC 3.28, HGB 9.4, HCT 27.4, SODIUM 146, CHLORIDE 113, BUN 23, CREATININE 1.07, GLUCOSE 102, CALCIUM 7.8, TOTAL PROTEIN 5.1, ALBUMIN 2.3. URINE CULTURE IS PENDING, BUT PRELIMINARY REPORTS GROWTH OF GRAM POSITIVE COCCI. SHE IS CURRENTLY RECEIVING D5W AT 80 ML/HR, LOVENOX 30MG SC DAILY, INVANZ 1G IV DAILY, AND HER HOME MEDICATIONS WERE RESUMED. TODAY, WE WILL ADD ALBUMIN 1G IV DAILY. OTHERWISE, WE PLAN TO FOLLOW UP WITH AM LABS AND CONTINUE TO MONITOR. TIME SPENT ON CLINICAL ASSESSMENT, REVIEWING LABS AND IMAGING, DECISION MAKING, AND DOCUMENTATION GREATER THAN 45 MINUTES. - Past Medical Family Social History Past Med/Fam/Surg Hx: No changes since H&P Allergies: Allergies propoxyphene [From Darvon] Allergy (Verified 03/30/21 10:36) - Review of Systems ROS: No change since H&P - Vital Signs and I&O's Vital Signs: Temperature 97.9 F Pulse Rate [Left Radial] 65 Respiratory Rate 20 Blood Pressure [Left Arm] 145/81 Blood Pressure 115/73 O2 Sat by Pulse Oximetry 98 Intake and Output: Intake & Output 04/19/21 04/20/21 04/21/21 04/22/21 11:59 11:59 11:59 11:59 Intake Total 1010 / 1010 2811 / 2811 Balance 1010 / 1010 2811 / 2811 - Physical Exam Oriented: Not Oriented Eyes: Normal Ear: Normal Nose: Normal Throat: Normal Respiratory: Generalized, Diminished Cardiovascular: Normal : Normal Auscultation: Bowel Sounds: Normal Palpation: Normal Tenderness: Normal Skin: Normal Musculoskeletal: Normal Psychiatric: Normal Mood Description: Flat Affect: Normal Speech Pattern: Unclear - Laboratory and Diagnostics Result Diagrams: 04/22/21 05:34 04/22/21 05:34 Labs: 04/20/21 18:05 Urine,Catheterized Urine Culture - Preliminary Laboratory WBC 5.3 X10^3/uL (3.6-10.0) 04/22/21 05:34 RBC 3.28 X10^6/uL (3.5-5.4) L 04/22/21 05:34 Hgb 9.4 g/dL (12.0-16.0) L 04/22/21 05:34 Hct 27.4 % (36.0-47.0) L 04/22/21 05:34 MCV 83.3 fL (80.0-100.0) 04/22/21 05:34 MCH 28.6 pg (27.0-34.0) 04/22/21 05:34 MCHC 34.3 g/dL (33.0-35.0) 04/22/21 05:34 RDW 15.8 % (11.6-16.5) 04/22/21 05:34 Plt Count 169 X10^3/uL (150.0-450.0) 04/22/21 05:34 Plt Count Comment Adequate (ADEQUATE) 04/21/21 06:17 MPV 8.9 fL (7.4-11.0) 04/22/21 05:34 Neut % (Auto) 47.0 % (42.0-75.0) 04/22/21 05:34 Lymph % (Auto) 34.8 % (21.0-51.0) 04/22/21 05:34 [place] % (Auto) 13.4 % (0.0-13.0) H 04/22/21 05:34 Eos % (Auto) 4.4 % (0.9-2.9) H 04/22/21 05:34 Baso % (Auto) 0.4 % (0.2-1.0) 04/22/21 05:34 Neut # (Auto) 2.5 x10^3/uL (2.2-4.8) 04/22/21 05:34 Lymph # (Auto) 1.9 X10^3/uL (1.3-2.9) 04/22/21 05:34 [place] # (Auto) 0.7 x10^3/uL (0.3-0.8) 04/22/21 05:34 Eos # (Auto) 0.2 x10^3/uL (0.0-0.2) 04/22/21 05:34 Baso # (Auto) 0.0 X10^3/uL (0.0-0.1) 04/22/21 05:34 Absolute Nucleated RBC 0.0 /100WBC 04/22/21 05:34 Plt Clumps, EDTA Few 04/21/21 06:17 Plt Morphology Comment Normal (NORMAL) 04/21/21 06:17 RBC Morphology Abnormal (NORMAL) A 04/21/21 06:17 Ovalocytes Present 04/21/21 06:17 Acanthocytes (Spur) Present 04/21/21 06:17 Sodium 146 mmol/L (136-145) H 04/22/21 05:34 Corrected Sodium TNP 04/22/21 05:34 Potassium 3.7 mmol/L (3.5-5.1) 04/22/21 05:34 Chloride 113 mmol/L (98-107) H 04/22/21 05:34 Carbon Dioxide 21.8 mmol/L (21-32) 04/22/21 05:34 BUN 23 mg/dL (7-18) H 04/22/21 05:34 Creatinine 1.07 mg/dL (0.55-1.02) H 04/22/21 05:34 Est GFR (MDRD) Af Amer > 60 (>60) 04/22/21 05:34 Est GFR (MDRD) Non-Af 52 (>60) L 04/22/21 05:34 Glucose 102 mg/dL (65-99) H 04/22/21 05:34 Calcium 7.8 mg/dL (8.5-10.1) L 04/22/21 05:34 Corrected Calcium 9.2 mg/dL (8.5-10.1) 04/22/21 05:34 Total Bilirubin 0.70 mg/dL (0.2-1.0) 04/22/21 05:34 AST 25 Units/L (15-37) 04/22/21 05:34 ALT 17 Units/L (12-78) 04/22/21 05:34 Alkaline Phosphatase 69 Units/L (46-116) 04/22/21 05:34 Total Protein 5.1 g/dL (6.4-8.2) L 04/22/21 05:34 Albumin 2.3 g/dL (3.4-5.0) L 04/22/21 05:34 Globulin 2.8 g/dL (2.5-4.5) 04/22/21 05:34 Albumin/Globulin Ratio 0.8 Ratio (1.1-2.1) L 04/22/21 05:34 Specimen Type Catherized urine 04/20/21 18:05 Urine Color Yellow (YELLOW) 04/20/21 18:05 Urine Appearance Clear (CLEAR) 04/20/21 18:05 Urine pH 5.0 (5.0 - 8.0) 04/20/21 18:05 Ur Specific [place] 1.010 (1.000-1.030) 04/20/21 18:05 Urine Protein Negative (NEGATIVE) 04/20/21 18:05 Urine Glucose (UA) Negative (NEGATIVE) 04/20/21 18:05 Urine Ketones Negative (NEGATIVE) 04/20/21 18:05 Urine Occult Blood Negative (NEGATIVE) 04/20/21 18:05 Urine Nitrite Negative (NEGATIVE) 04/20/21 18:05 Urine Bilirubin Negative (NEGATIVE) 04/20/21 18:05 Urine Urobilinogen Normal (NORMAL) 04/20/21 18:05 Ur Leukocyte Esterase 1+ (NEGATIVE) 04/20/21 18:05 Urine RBC 0-2 /HPF (0-3) 04/20/21 18:05 Urine WBC 3-5 /HPF (0-5) 04/20/21 18:05 Ur Squamous Epith Cells Moderate /HPF (NEGATIVE) 04/20/21 18:05 Urine Bacteria Trace /HPF (NEGATIVE) 04/20/21 18:05 Ur Culture Indicated? No/not indicated 04/20/21 18:05 - Plan (1) Hypernatremia Status: Acute Plan: D5W AT 80 ML/HR, LOVENOX 30MG SC DAILY, RESUME HOME MEDS, CHECK AM LABS (2) Renal insufficiency Status: Acute (3) UTI (urinary tract infection) Status: Acute Qualifiers: Urinary tract infection type: acute cystitis Hematuria presence: with hematuria Qualified Code(s): N30.01 - Acute cystitis with hematuria Plan: INVANZ 1G IV DAILY (4) Hypoalbuminemia Status: Acute Plan: ALBUMIN 25% IV DAILY (5) Altered mental status Status: Acute Qualifiers: Altered mental status type: transient alteration of awareness (6) HTN (hypertension) Status: Chronic Qualifiers: Hypertension type: primary hypertension Qualified Code(s): I10 - Essential (primary) hypertension (7) Hyperlipidemia Status: Chronic Qualifiers: Hyperlipidemia type: mixed hyperlipidemia Qualified Code(s): E78.2 - Mixed hyperlipidemia (8) GERD (gastroesophageal reflux disease) Status: Chronic Qualifiers: Esophagitis presence: esophagitis presence not specified Qualified Code(s): K21.9 - Gastro-esophageal reflux disease without esophagitis (9) CAD (coronary artery disease) Status: Chronic Qualifiers: Coronary Disease-Associated Artery/Lesion type: [place] artery [place] vs. transplanted heart: [place] heart Associated angina: without angina Qualified Code(s): I25.10 - Atherosclerotic heart disease of [place] coronary artery without angina pectoris (10) CHF (congestive heart failure) Status: Chronic Qualifiers: Heart failure type: unspecified Heart failure chronicity: chronic Qualified Code(s): I50.9 - Heart failure, unspecified (11) Dementia Status: Chronic Qualifiers: Dementia type: unspecified type Dementia behavioral disturbance: without behavioral disturbance Qualified Code(s): F03.90 - Unspecified dementia without behavioral disturbance
[2021-04-22] MEDS ORDERED: ATROPINE SULFATE IM SCH (21:00)
[2021-04-22] MEDS ORDERED: LIPITOR TAB 10 MG PO SCH (21:00)
[2021-04-22] MEDS ORDERED: NEURONTIN CAP 100 MG PO SCH (21:00)
[2021-04-22] MEDS ORDERED: TYLENOL 325 MG TAB PO PRN (21:03)
[2021-04-23] MEDS ORDERED: BUTT CREAM (COMPOUND) TOP PRN (01:19)
[2021-04-23] MEDS ORDERED: BUTT CREAM (COMPOUND) ONE (01:20)
[2021-04-23] MEDS: D5W 1,000 ML IV 1,000 ML IV SCH (01:56)
[2021-04-23 07:12] LABS: ALANINE AMINOTRANSFERASE 20 Units/L (12-78); ALKALINE PHOSPHATASE 82 Units/L (46-116); ASPARTATE AMINO TRANSFERASE 25 Units/L (15-37); BLOOD UREA NITROGEN 13 mg/dL (7-18); CALCIUM 8.1 mg/dL (8.5-10.1); CARBON DIOXIDE 24.2 mmol/L (21-32); CHLORIDE 111 mmol/L (98-107); COR CA(FOR HYPOALB) 8.9 mg/dL (8.5-10.1); SODIUM 146 mmol/L (136-145); TOTAL PROTEIN 5.9 g/dL (6.4-8.2); eGFR NON BLACK RACES 57 (>60)
[2021-04-23 07:16] LABS: BASOPHILS % (AUTO) 0.7 % (0.2-1.0); EOSINOPHILS # (AUTO) 0.2 x10^3/uL (0.0-0.2); EOSINOPHILS % (AUTO) 4.7 % (0.9-2.9); HEMATOCRIT 31.8 % (36.0-47.0); HEMOGLOBIN 10.9 g/dL (12.0-16.0); LYMPHOCYTES # (AUTO) 1.9 X10^3/uL (1.3-2.9); MEAN CORPUSCULAR HEMOGLOBIN 28.1 pg (27.0-34.0); MEAN CORPUSCULAR HGB CONC 34.4 g/dL (33.0-35.0); MEAN CORPUSCULAR VOLUME 81.7 fL (80.0-100.0); MEAN PLATELET VOLUME 9.5 fL (7.4-11.0); MONOCYTES # (AUTO) 0.8 x10^3/uL (0.3-0.8); MONOCYTES % (AUTO) 15.7 % (0.0-13.0); NEUTROPHILS # (AUTO) 2.2 x10^3/uL (2.2-4.8); NEUTROPHILS % (AUTO) 41.9 % (42.0-75.0); RED BLOOD COUNT 3.89 X10^6/uL (3.5-5.4); RED CELL DISTRIBUTION WIDTH 15.7 % (11.6-16.5); WHITE BLOOD COUNT 5.2 X10^3/uL (3.6-10.0)
[2021-04-23 07:31] LABS: PLATELET MORPHOLOGY COMMENT NORMAL (NORMAL)
[2021-04-23] MEDS ORDERED: LEXAPRO ONE (08:31)
[2021-04-23] MEDS: ALBUMIN HUMAN 25%- 100 ML 100 ML IV SCH (08:39)
[2021-04-23] MEDS: VASOTEC TAB 20 MG PO SCH (08:39)
[2021-04-23] MEDS: SYNTHROID 125 mcg TAB PO SCH (08:40)
[2021-04-23] MEDS: PROTONIX TAB 40 MG PO SCH (08:40)
[2021-04-23] MEDS: TAB-A-VITE PO SCH (08:40)
[2021-04-23] MEDS: COLACE CAP 100 MG PO SCH (08:40)
[2021-04-23] MEDS: ULTRAM PO SCH (08:41)
[2021-04-23] MEDS: LEXAPRO PO SCH (08:41)
[2021-04-23] MEDS: PEPCID TAB 20 MG PO SCH (08:42)
[2021-04-23] MEDS: CARAFATE PO SCH (08:42)
[2021-04-23] MEDS: POTASSIUM CHLORIDE LIQ 20 MEQ UDC PO SCH (08:42)
[2021-04-23] MEDS: LOVENOX INJ 30 MG SYR SC SCH (08:43)
[2021-04-23 08:49] VITALS: BP 160/83
== END 2021-04-23 11:00 | DRG 641 ==
LOC: MED/SURG 11:56
PROVIDERS: ADMIT Internal Medicine; ATTEND Internal Medicine
DX: K21.9 Gastro-esophageal reflux disease without esophagitis; Z20.822 Contact with and (suspected) exposure to COVID-19; N30.01 Acute cystitis with hematuria; E78.2 Mixed hyperlipidemia; I50.9 Heart failure, unspecified; I10 Essential (primary) hypertension; R26.89 Other abnormalities of gait and mobility; R41.82 Altered mental status, unspecified; F03.90 Unspecified dementia, unspecified severity, without behavioral disturbance, psychotic disturbance, mood disturbance, and anxiety; F20.89 Other schizophrenia; B95.2 Enterococcus as the cause of diseases classified elsewhere; N28.9 Disorder of kidney and ureter, unspecified; I25.10 Atherosclerotic heart disease of native coronary artery without angina pectoris; E87.0 Hyperosmolality and hypernatremia

== ENCOUNTER 2024-05-13 10:56 | Observation (INO) ==
[2024-05-13] MEDS ORDERED: D50W ABBOJECT SYR ONE (11:17)
--- NOTE | 2024-05-13 11:23 | DR.AMS ---
HPI Time Seen Time Seen by Provider: 05/13/24 11:23 COVID-19 Coronavirus risk:travel/contact w/high risk person: No Has patient experienced Coronavirus symptoms: No PMH PMH Past Medical History: Alzheimers, Arthritis, CHF, Dementia, Depression, Dyslipidemia, GERD, Hypertension, Hypothyroidism and Renal Disease Past Surgical History: Yes Surgical History: Abdominal Surgery and Ortho Surgery Family History Family Medical History: Diabetes Mellitus, Cancer and Hypertension Social History Do you use any recreational Drugs:: No Travel Risk Coronavirus risk:travel/contact w/high risk person: No Has patient experienced Coronavirus symptoms: No PE Vitals Vital Signs: Temp Pulse Pulse Resp BP BP Pulse Ox 05/13/24 13:15 49 L 16 100 05/13/24 13:08 44 L 27 H 100 05/13/24 13:08 213/88 05/13/24 13:05 55 L 26 H 99 05/13/24 13:00 46 L 24 100 05/13/24 13:00 189/91 05/13/24 12:45 48 L 26 H 99 05/13/24 12:31 51 L 28 H 100 05/13/24 12:31 160/82 05/13/24 12:30 68 26 H 99 05/13/24 12:15 50 L 19 98 05/13/24 12:00 61 22 100 05/13/24 12:00 159/107 05/13/24 11:45 61 100 05/13/24 11:30 136/80 05/13/24 11:32 60 22 136/80 99 05/13/24 11:20 97.6 F 22 O2 Del Method 05/13/24 13:15 05/13/24 13:08 05/13/24 13:08 05/13/24 13:05 05/13/24 13:00 05/13/24 13:00 05/13/24 12:45 05/13/24 12:31 05/13/24 12:31 05/13/24 12:30 05/13/24 12:15 05/13/24 12:00 05/13/24 12:00 05/13/24 11:45 05/13/24 11:30 05/13/24 11:32 Room Air 05/13/24 11:20 Room Air ROR Labs Reviewed 05/13/24 11:27 05/13/24 11:27 Laboratory: WBC 6.0 X10^3/uL (3.6-10.0) 05/13/24 11:27 RBC 4.09 X10^6/uL (3.5-5.4) 05/13/24 11:27 Hgb 11.8 g/dL (12.0-16.0) L 05/13/24 11:27 Hct 35.1 % (36.0-47.0) L 05/13/24 11:27 MCV 85.9 fL (80.0-100.0) 05/13/24 11:27 MCH 28.9 pg (27.0-34.0) 05/13/24 11:27 MCHC 33.7 g/dL (33.0-35.0) 05/13/24 11:27 RDW 14.4 % (11.6-16.5) 05/13/24 11:27 Plt Count 192 X10^3/uL (150.0-450.0) 05/13/24 11:27 MPV 7.9 fL (7.4-11.0) 05/13/24 11:27 Neut % (Auto) 44.2 % (42.0-75.0) 05/13/24 11:27 Lymph % (Auto) 37.3 % (21.0-51.0) 05/13/24 11:27 [place] % (Auto) 14.0 % (0.0-13.0) H 05/13/24 11:27 Eos % (Auto) 3.9 % (0.9-2.9) H 05/13/24 11:27 Baso % (Auto) 0.6 % (0.2-1.0) 05/13/24 11:27 Neut # (Auto) 2.6 x10^3/uL (2.2-4.8) 05/13/24 11:27 Lymph # (Auto) 2.2 X10^3/uL (1.3-2.9) 05/13/24 11:27 [place] # (Auto) 0.8 x10^3/uL (0.3-0.8) 05/13/24 11:27 Eos # (Auto) 0.2 x10^3/uL (0.0-0.2) 05/13/24 11:27 Baso # (Auto) 0.0 X10^3/uL (0.0-0.1) 05/13/24 11:27 Absolute Nucleated RBC 0.1 /100WBC 05/13/24 11:27 Sodium 146 mmol/L (136-145) H 05/13/24 11:27 Corrected Sodium TNP 05/13/24 11:27 Potassium 4.0 mmol/L (3.5-5.1) 05/13/24 11:27 Chloride 108 mmol/L (98-107) H 05/13/24 11:27 Carbon Dioxide 34.5 mmol/L (21-32) H 05/13/24 11:27 BUN 21 mg/dL (7-18) H 05/13/24 11:27 Creatinine 1.10 mg/dL (0.55-1.02) H 05/13/24 11:27 Est GFR (MDRD) Af Amer > 60 (>60) 05/13/24 11:27 Est GFR (MDRD) Non-Af 50 (>60) L 05/13/24 11:27 Glucose 79 mg/dL (65-99) 05/13/24 11:27 POC Glucose (mg/dL) 78 mg/dL (65-99) 05/13/24 12:54 Calcium 8.9 mg/dL (8.5-10.1) 05/13/24 11:27 Corrected Calcium 9.7 mg/dL (8.5-10.1) 05/13/24 11:27 Total Bilirubin 0.80 mg/dL (0.2-1.0) 05/13/24 11:27 AST 21 Units/L (15-37) 05/13/24 11:27 ALT 16 Units/L (12-78) 05/13/24 11:27 Alkaline Phosphatase 107 Units/L (46-116) 05/13/24 11:27 Creatine Kinase 30 Units/L (26-192) 05/13/24 11:27 Troponin I High Sens 19.1 ng/L (4.0-60.0) 05/13/24 11:27 B-Natriuretic Peptide 149 pg/mL (0-79) H 05/13/24 11:27 Total Protein 6.7 g/dL (6.4-8.2) 05/13/24 11:27 Albumin 3.0 g/dL (3.4-5.0) L 05/13/24 11:27 Globulin 3.7 g/dL (2.5-4.5) 05/13/24 11:27 Albumin/Globulin Ratio 0.8 Ratio (1.1-2.1) L 05/13/24 11:27 Specimen Type Catherized urine 05/13/24 13:24 Urine Color Yellow (YELLOW) 05/13/24 13:24 Urine Appearance Clear (CLEAR) 05/13/24 13:24 Urine pH 6.0 (5.0 - 8.0) 05/13/24 13:24 Ur Specific [place] 1.020 (1.000-1.030) 05/13/24 13:24 Urine Protein Negative (NEGATIVE) 05/13/24 13:24 Urine Glucose (UA) 3+ (NEGATIVE) 05/13/24 13:24 Urine Ketones Negative (NEGATIVE) 05/13/24 13:24 Urine Blood 2+ (NEGATIVE) 05/13/24 13:24 Urine Nitrite Negative (NEGATIVE) 05/13/24 13:24 Urine Bilirubin Negative (NEGATIVE) 05/13/24 13:24 Urine Urobilinogen Normal (NORMAL) 05/13/24 13:24 Ur Leukocyte Esterase 3+ (NEGATIVE) 05/13/24 13:24 Urine RBC 0-2 /HPF (0-3) 05/13/24 13:24 Urine WBC 20-30 /HPF (0-5) A 05/13/24 13:24 Ur Squamous Epith Cells Negative /HPF (NEGATIVE) 05/13/24 13:24 Urine Bacteria Negative /HPF (NEGATIVE) 05/13/24 13:24 Ur Culture Indicated? Yes/culture set up 05/13/24 13:24 Opioid Opioid Risk Tool Age (Sharif box if 16-45): No History of Preadolescent Sexual Abuse: No Total: 0 Total Score Risk Category: Low Risk Copyright: Oswaldo COHN predicting aberrant behaviors Discharge Plan Discharge Plan Patient Disposition: 01 HOME, SELF-CARE Condition: Stable Prescriptions: No Action multivitamin Tablet 1 tab PO DAILY famotidine [Pepcid] 20 mg Tablet 20 mg PO DAILY pantoprazole [Protonix] 40 mg Tablet,Delayed Release (Dr/Ec) 40 mg PO BID triamcinolone acetonide 0.1 % cream 1 applic topical DAILY cholecalciferol (vitamin D3) [Vitamin D3] 125 mcg (5,000 unit) Tablet 125 mcg PO QDAY atorvastatin 10 mg tablet 10 mg PO HS enalapril maleate 20 mg tablet 20 mg PO BID furosemide 20 mg tablet 20 mg PO DAILY docusate sodium [Colace] 100 mg Capsule 100 mg PO BID tramadol 50 mg tablet 50 mg PO TID potassium chloride 20 mEq/15 mL Liquid 10 meq PO DAILY Rx Instructions: GIVE 7.5ML PO ONE TIME A DAY gabapentin 100 mg capsule 100 mg PO TID levothyroxine 125 mcg tablet 125 mcg PO DAILY dextrose 5 % in water (D5W) Parenteral Solution 1,000 ml IV .MON Rx Instructions: ADMINISTER 1 LITER ON MONDAY. Infuse at 250ml/hr x's 1 liter if sodium is greater than 145 magnesium hydroxide [Milk of Magnesia] 400 mg/5 mL Suspension 30 ml PO Q6HR PRN (Reason: Constipation) emollient Cream 1 applic TOPICAL DAILY fentanyl 50 mcg/hr patch 72 hour 1 patch transdermal Q3D Rx Instructions: last placed on 03/19/24 Health Concerns: Post Hospitalization: new medications and changes needed to prevent readmission or further decline. Pt educated and given instructions on all concerns. Plan of Treatment: Continue with present treatment and follow up plan. Pt is to keep follow up appointment as instructed and take medications as ordered. Orders to Discharge Patient Discharge Orders: Transfer (Routine); Ordered 05/13/24 Ordered By: MIHAI MOJICA Follow ups/Referrals Follow ups/Referrals: Shiv Burkett [Primary Care Provider] - 3 days Instructions Stand Alone Forms: Find Help Web Site, Post Hospital Follow Up Care
[2024-05-13] MEDS: D50W ABBOJECT SYR IV ONE ×2 (11:29→13:01)
[2024-05-13 11:48] LABS: BASOPHILS % (AUTO) 0.6 % (0.2-1.0); EOSINOPHILS # (AUTO) 0.2 x10^3/uL (0.0-0.2); EOSINOPHILS % (AUTO) 3.9 % (0.9-2.9); HEMATOCRIT 35.1 % (36.0-47.0); HEMOGLOBIN 11.8 g/dL (12.0-16.0); LYMPHOCYTES # (AUTO) 2.2 X10^3/uL (1.3-2.9); LYMPHOCYTES % (AUTO) 37.3 % (21.0-51.0); MEAN CORPUSCULAR HEMOGLOBIN 28.9 pg (27.0-34.0); MEAN CORPUSCULAR HGB CONC 33.7 g/dL (33.0-35.0); MEAN CORPUSCULAR VOLUME 85.9 fL (80.0-100.0); MEAN PLATELET VOLUME 7.9 fL (7.4-11.0); MONOCYTES # (AUTO) 0.8 x10^3/uL (0.3-0.8); NEUTROPHILS # (AUTO) 2.6 x10^3/uL (2.2-4.8); NEUTROPHILS % (AUTO) 44.2 % (42.0-75.0); PLATELET COUNT 192 X10^3/uL (150.0-450.0); RED BLOOD COUNT 4.09 X10^6/uL (3.5-5.4); RED CELL DISTRIBUTION WIDTH 14.4 % (11.6-16.5)
[2024-05-13 12:03] LABS: ALANINE AMINOTRANSFERASE 16 Units/L (12-78); ALKALINE PHOSPHATASE 107 Units/L (46-116); ASPARTATE AMINO TRANSFERASE 21 Units/L (15-37); BLOOD UREA NITROGEN 21 mg/dL (7-18); CALCIUM 8.9 mg/dL (8.5-10.1); CARBON DIOXIDE 34.5 mmol/L (21-32); CHLORIDE 108 mmol/L (98-107); COR CA(FOR HYPOALB) 9.7 mg/dL (8.5-10.1); GLUCOSE 79 mg/dL (65-99); SODIUM 146 mmol/L (136-145); TOTAL PROTEIN 6.7 g/dL (6.4-8.2); eGFR NON BLACK RACES 50 (>60)
--- NOTE | 2024-05-13 12:06 | EKG ---
Test Reason : ams Blood Pressure : */* mmHG Vent. Rate : 60 BPM Atrial Rate : 60 BPM P-R Int : 174 ms QRS Dur : 72 ms QT Int : 436 ms P-R-T Axes : 25 56 209 degrees QTc Int : 436 ms Sinus rhythm with premature supraventricular complexes Anterior infarct (cited on or before 07-APR-2024) Abnormal ECG When compared with ECG of 07-APR-2024 09:16, premature supraventricular complexes are now present IN interval has decreased Criteria for Inferior infarct are no longer present Serial changes of Anterior infarct present Confirmed by Trell Escobar MD ([id number]) on 05/13/2024 12:19:18 PM Referred By: Confirmed By: Trell Escobar MD
[2024-05-13 13:38] LABS: BILIRUBIN,URINE NEGATIVE (NEGATIVE); BLOOD/HEMOGLOBIN,URINE 2+ (NEGATIVE); GLUCOSE, URINE 3+ (NEGATIVE); KETONES,URINE NEGATIVE (NEGATIVE); LEUKOCYTE ESTERASE ,URINE 3+ (NEGATIVE); NITRITES,URINE NEGATIVE (NEGATIVE); PROTEIN,URINE NEGATIVE (NEGATIVE); UROBILINOGEN,URINE NORMAL (NORMAL)
[2024-05-13 13:52] LABS: APPEARANCE,URINE CLEAR (CLEAR); BACTERIA,URINE NEGATIVE /HPF (NEGATIVE); COLOR,URINE YELLOW (YELLOW); RBC,URINE 0-2 /HPF (0-3); SQUAMOUS EPITHELIAL CELL,UR NEGATIVE /HPF (NEGATIVE)
--- NOTE | 2024-05-13 14:09 | CT ---
EXAM:BRAIN W/O CONHISTORY:AMS;COMPARISON:No relevant prior studies were available for comparison at the time of interpretation..TECHNIQUE:CT images were obtained. Multiplanar reconstructions were created on a separate workstation and used during interpretation. All CT scans at this facility is dose modulation, iterative reconstruction, and/or weight-based dosing as appropriate to reduce radiation to levels as low as reasonably achievable (ALARA). Postprocessing details, radiation dose, and contrast dose (if applicable) are recorded in the patient's medical record.FINDINGS:Motion artifact limits exam.Acute findings: There is no intracranial hemorrhage. No mass effect. No intra-axial or extra-axial fluid collection. There is no mass. No tentorial, uncal, or tonsillar herniation.Brain volume and white matter: There is diffuse cortical atrophy. There is hypoattenuation in the supratentorial white matter consistent with chronic microvascular ischemic disease.Ventricles: No hydrocephalusMidline structures: Pituitary gland and corpus callosum are normal.Posterior fossa and skull base: Cerebellum and posterior fossa are within normal limits. Basal cisterns are not effaced.Sinuses and mastoids: Paranasal sinuses and mastoid air cells are predominantly clear.Globes and Orbits: Bilateral lens implants. Globes are intact. Bony orbits are intact. Extraocular muscles and retrobulbar fat appear normal.Skull and soft tissues: No depressed skull fracture. Calvarium appears intact. No scalp injury is identified.IMPRESSION:1. No acute intracranial abnormalityTHIS IS AN ELECTRONICALLY VERIFIED FINAL REPORT05/13/2024 2:06 PM - Electronically signed by Favian Belle MD
[2024-05-13 16:09] VITALS: BMI 32.0
[2024-05-13] MEDS: NS 1,000 ML IV 1,000 ML IV SCH (16:50)
[2024-05-14] MEDS: D50W ABBOJECT SYR IV ONE (00:56)
[2024-05-14 06:05] LABS: BASOPHILS % (AUTO) 0.5 % (0.2-1.0); EOSINOPHILS # (AUTO) 0.2 x10^3/uL (0.0-0.2); EOSINOPHILS % (AUTO) 3.4 % (0.9-2.9); HEMATOCRIT 32.7 % (36.0-47.0); HEMOGLOBIN 11.2 g/dL (12.0-16.0); LYMPHOCYTES # (AUTO) 2.2 X10^3/uL (1.3-2.9); LYMPHOCYTES % (AUTO) 32.6 % (21.0-51.0); MEAN CORPUSCULAR HEMOGLOBIN 29.1 pg (27.0-34.0); MEAN CORPUSCULAR HGB CONC 34.4 g/dL (33.0-35.0); MEAN CORPUSCULAR VOLUME 84.5 fL (80.0-100.0); MEAN PLATELET VOLUME 8.3 fL (7.4-11.0); MONOCYTES # (AUTO) 0.8 x10^3/uL (0.3-0.8); MONOCYTES % (AUTO) 12.1 % (0.0-13.0); NEUTROPHILS # (AUTO) 3.5 x10^3/uL (2.2-4.8); NEUTROPHILS % (AUTO) 51.4 % (42.0-75.0); PLATELET COUNT 201 X10^3/uL (150.0-450.0); RED BLOOD COUNT 3.87 X10^6/uL (3.5-5.4); RED CELL DISTRIBUTION WIDTH 14.2 % (11.6-16.5); WHITE BLOOD COUNT 6.8 X10^3/uL (3.6-10.0)
[2024-05-14 06:17] LABS: ALANINE AMINOTRANSFERASE 16 Units/L (12-78); ALKALINE PHOSPHATASE 95 Units/L (46-116); ASPARTATE AMINO TRANSFERASE 20 Units/L (15-37); BLOOD UREA NITROGEN 15 mg/dL (7-18); CALCIUM 8.8 mg/dL (8.5-10.1); CARBON DIOXIDE 29.2 mmol/L (21-32); CHLORIDE 109 mmol/L (98-107); COR CA(FOR HYPOALB) 9.6 mg/dL (8.5-10.1); CREATININE 0.94 mg/dL (0.55-1.02); GLUCOSE 82 mg/dL (65-99); POTASSIUM 3.6 mmol/L (3.5-5.1); SODIUM 146 mmol/L (136-145); TOTAL PROTEIN 6.2 g/dL (6.4-8.2); eGFR NON BLACK RACES > 60 (>60)
[2024-05-14] MEDS ORDERED: CONSULT PHARMACY - POTASSIUM & MAGNESIUM XX SCH (07:00)
[2024-05-14 08:07] VITALS: BP 172/90; PULSE 57; RESP 18; TEMP 97.6; O2SAT 96
[2024-05-14] MEDS ORDERED: ULTRAM PO PRN (08:58)
[2024-05-14] MEDS ORDERED: PHARMACY CONSULT LTC MEDICATIONS XX SCH (09:00)
[2024-05-14] MEDS: PEPCID TAB 20 MG PO SCH (09:41)
[2024-05-14] MEDS: COLACE CAP 100 MG PO SCH (09:41)
[2024-05-14] MEDS: VASOTEC TAB 20 MG PO SCH (09:41)
[2024-05-14] MEDS: LOVENOX INJ 40 MG SYR SC SCH (09:41)
[2024-05-14] MEDS ORDERED: NEURONTIN CAP 100 MG PO SCH (14:00)
[2024-05-14] MEDS ORDERED: LIPITOR TAB 10 MG PO SCH (21:00)
[2024-05-15] MEDS ORDERED: POTASSIUM CHLORIDE LIQ PO SCH (09:00)
--- NOTE | 2024-05-20 10:16 | DR.SSS ---
SHORT STAY SUMMARY Admission Date Date of Admission: 05/13/24 Discharge Date Discharge Date: 05/14/24 Admission Diagnoses Admission Diagnoses: Hypoglycemia AMS Generalized weakness Discharge Diagnoses Discharge Diagnoses: Hypoglycemia Generalized weakness Hypertension Chronic pain syndrome CHF Dementia Chief Complaint Chief Complaint: lethargy, hypoglycemia History of Present Illness History of Present Illness: Ms. Jules is a 84-year-old female with multiple comorbidities who is a resident of [facility] presented with lethargy and hypoglycemia. Her blood sugar in the ER was noted to be 39. She was started on D50 and glucose was monitored. Her labs showed some dehydration. She was admitted overnight due to hypoglycemia. Past Medical History Past Medical History: Alzheimers, Arthritis, CHF, Dementia, Depression, Dyslipidemia, GERD, Hypertension, Hypothyroidism and Renal Disease Past Surgical History Surgical History: Cholecystectomy Additional Surgical History: PEG TUBE Allergies Allergies Allergy/AdvReac Type Severity Reaction Status Date / Time acetaminophen Allergy Unknown Verified 10/03/23 11:07 [From Darvocet-N] aspirin Allergy Unknown Verified 10/03/23 11:07 propoxyphene [From Darvon] Allergy Unknown Verified 10/03/23 11:07 Medications Home Medications: acetaminophen [From Darvocet-N] Allergy (Unknown, Verified 10/03/23 11:07) aspirin Allergy (Unknown, Verified 10/03/23 11:07) propoxyphene [From Darvon] Allergy (Unknown, Verified 10/03/23 11:07) Family History Family Medical History: Diabetes Mellitus, Heart Failure and Hypertension Social History Does patient currently use any type of tobacco product: No Have you used tobacco products in the last 12 months: No Type of Tobacco Use: None Does any household member use tobacco: No Alcohol Use: None Drug Use: None Review of Systems Constitutional: Weakness and Malaise Eyes: No Symptoms Reported Respiratory: No Symptoms Reported Cardiovascular: No Symptoms Reported Gastrointestinal: No Symptoms Reported Genitourinary: No Symptoms Reported Musculoskeletal: Other (generalized weakness) Skin: No Symptoms Reported Neurological: Confusion Physical Exam Vital Signs: Last Vital Signs Temp 97.6 F 05/14/24 08:00 Pulse 57 L 05/14/24 08:00 Resp 18 05/14/24 08:00 BP 172/90 05/14/24 08:00 Pulse Ox 96 05/14/24 08:00 O2 Del Method Room Air 05/14/24 08:00 FiO2 28 06/08/21 04:00 Oriented: Unable to test Eyes: Normal Throat: Dry Respiratory: Diminished Throughout Cardiovascular: Normal Auscultation: Bowel Sounds: Normal Palpation: Normal Tenderness: Normal Skin: Decreased Turgur Musculoskeletal: Normal Psychiatric: Normal Mood Description: Calm Affect: Normal Speech Pattern: Aphasic Labs Labs: Laboratory Last Values WBC 6.8 X10^3/uL (3.6-10.0) 05/14/24 05:17 RBC 3.87 X10^6/uL (3.5-5.4) 05/14/24 05:17 Hgb 11.2 g/dL (12.0-16.0) L 05/14/24 05:17 Hct 32.7 % (36.0-47.0) L 05/14/24 05:17 MCV 84.5 fL (80.0-100.0) 05/14/24 05:17 MCH 29.1 pg (27.0-34.0) 05/14/24 05:17 MCHC 34.4 g/dL (33.0-35.0) 05/14/24 05:17 RDW 14.2 % (11.6-16.5) 05/14/24 05:17 Plt Count 201 X10^3/uL (150.0-450.0) 05/14/24 05:17 MPV 8.3 fL (7.4-11.0) 05/14/24 05:17 Neut % (Auto) 51.4 % (42.0-75.0) 05/14/24 05:17 Lymph % (Auto) 32.6 % (21.0-51.0) 05/14/24 05:17 [place] % (Auto) 12.1 % (0.0-13.0) 05/14/24 05:17 Eos % (Auto) 3.4 % (0.9-2.9) H 05/14/24 05:17 Baso % (Auto) 0.5 % (0.2-1.0) 05/14/24 05:17 Neut # (Auto) 3.5 x10^3/uL (2.2-4.8) 05/14/24 05:17 Lymph # (Auto) 2.2 X10^3/uL (1.3-2.9) 05/14/24 05:17 [place] # (Auto) 0.8 x10^3/uL (0.3-0.8) 05/14/24 05:17 Eos # (Auto) 0.2 x10^3/uL (0.0-0.2) 05/14/24 05:17 Baso # (Auto) 0.0 X10^3/uL (0.0-0.1) 05/14/24 05:17 Absolute Nucleated RBC 0.0 /100WBC 05/14/24 05:17 Sodium 146 mmol/L (136-145) H 05/14/24 05:17 Corrected Sodium TNP 05/14/24 05:17 Potassium 3.6 mmol/L (3.5-5.1) 05/14/24 05:17 Chloride 109 mmol/L (98-107) H 05/14/24 05:17 Carbon Dioxide 29.2 mmol/L (21-32) 05/14/24 05:17 BUN 15 mg/dL (7-18) 05/14/24 05:17 Creatinine 0.94 mg/dL (0.55-1.02) 05/14/24 05:17 Est GFR (MDRD) Af Amer > 60 (>60) 05/14/24 05:17 Est GFR (MDRD) Non-Af > 60 (>60) 05/14/24 05:17 Glucose 82 mg/dL (65-99) 05/14/24 05:17 POC Glucose (mg/dL) 91 mg/dL (65-99) 05/14/24 10:20 Calcium 8.8 mg/dL (8.5-10.1) 05/14/24 05:17 Corrected Calcium 9.6 mg/dL (8.5-10.1) 05/14/24 05:17 Total Bilirubin 0.80 mg/dL (0.2-1.0) 05/14/24 05:17 AST 20 Units/L (15-37) 05/14/24 05:17 ALT 16 Units/L (12-78) 05/14/24 05:17 Alkaline Phosphatase 95 Units/L (46-116) 05/14/24 05:17 Creatine Kinase 30 Units/L (26-192) 05/13/24 11:27 Troponin I High Sens 19.1 ng/L (4.0-60.0) 05/13/24 11:27 B-Natriuretic Peptide 149 pg/mL (0-79) H 05/13/24 11:27 Total Protein 6.2 g/dL (6.4-8.2) L 05/14/24 05:17 Albumin 3.0 g/dL (3.4-5.0) L 05/14/24 05:17 Globulin 3.2 g/dL (2.5-4.5) 05/14/24 05:17 Albumin/Globulin Ratio 0.9 Ratio (1.1-2.1) L 05/14/24 05:17 Specimen Type Catherized urine 05/13/24 13:24 Urine Color Yellow (YELLOW) 05/13/24 13:24 Urine Appearance Clear (CLEAR) 05/13/24 13:24 Urine pH 6.0 (5.0 - 8.0) 05/13/24 13:24 Ur Specific [place] 1.020 (1.000-1.030) 05/13/24 13:24 Urine Protein Negative (NEGATIVE) 05/13/24 13:24 Urine Glucose (UA) 3+ (NEGATIVE) 05/13/24 13:24 Urine Ketones Negative (NEGATIVE) 05/13/24 13:24 Urine Blood 2+ (NEGATIVE) 05/13/24 13:24 Urine Nitrite Negative (NEGATIVE) 05/13/24 13:24 Urine Bilirubin Negative (NEGATIVE) 05/13/24 13:24 Urine Urobilinogen Normal (NORMAL) 05/13/24 13:24 Ur Leukocyte Esterase 3+ (NEGATIVE) 05/13/24 13:24 Urine RBC 0-2 /HPF (0-3) 05/13/24 13:24 Urine WBC 20-30 /HPF (0-5) A 05/13/24 13:24 Ur Squamous Epith Cells Negative /HPF (NEGATIVE) 05/13/24 13:24 Urine Bacteria Negative /HPF (NEGATIVE) 05/13/24 13:24 Ur Culture Indicated? Yes/culture set up 05/13/24 13:24 Hospital Course Hospital Course: Ms. Jules is a 84-year-old female with multiple comorbidities who is a resident of [facility] presented with lethargy and hypoglycemia. Her blood sugar in the ER was noted to be 39. She was started on D50 and glucose was monitored. Her labs showed some dehydration. She was admitted overnight due to hypoglycemia. Her labs are monitored and electrolytes replace as needed. Her glucose improved into the 70 and 80 range. She is not on any hypoglycemic medications. She was stable to be discharged back to the [facility]. Her glucose will be monitored there. Discharge Medications Discharge Medications: Prescriptions: Discharge Disposition Discharge Disposition: [facility] Discharge Plan Discharge Plan Patient Disposition: XFER [facility] Condition: Stable Health Concerns: Post Hospitalization: new medications and changes needed to prevent readmission or further decline. Pt educated and given instructions on all concerns. Care Plan Goals: Problem: Pain/Alteration in Comfort Goal: Improve/ Resolve Pain; Achieve Pain Tolerance Instructions: Take pain medications as prescribed. Contact your primary care provider if your pain is unrelieved or worsens. Follow up with primary care provider as directed. Plan of Treatment: Continue with present treatment and follow up plan. Pt is to keep follow up appointment as instructed and take medications as ordered. Prescription drug monitoring program results: PDMP reviewed and no concerns identified Prescriptions: Continued multivitamin Tablet 1 tab PO DAILY famotidine [Pepcid] 20 mg Tablet 20 mg PO DAILY pantoprazole [Protonix] 40 mg Tablet,Delayed Release (Dr/Ec) 40 mg PO BID triamcinolone acetonide 0.1 % cream 1 applic topical DAILY cholecalciferol (vitamin D3) [Vitamin D3] 125 mcg (5,000 unit) Tablet 125 mcg PO QDAY atorvastatin 10 mg tablet 10 mg PO HS enalapril maleate 20 mg tablet 20 mg PO BID furosemide 20 mg tablet 20 mg PO DAILY docusate sodium [Colace] 100 mg Capsule 100 mg PO BID tramadol 50 mg tablet 50 mg PO TID potassium chloride 20 mEq/15 mL Liquid 10 meq PO DAILY Rx Instructions: GIVE 7.5ML PO ONE TIME A DAY gabapentin 100 mg capsule 100 mg PO TID levothyroxine 125 mcg tablet 125 mcg PO DAILY dextrose 5 % in water (D5W) Parenteral Solution 1,000 ml IV .MON Rx Instructions: ADMINISTER 1 LITER ON MONDAY. Infuse at 250ml/hr x's 1 liter if sodium is greater than 145 magnesium hydroxide [Milk of Magnesia] 400 mg/5 mL Suspension 30 ml PO Q6HR PRN (Reason: Constipation) emollient Cream 1 applic TOPICAL DAILY fentanyl 50 mcg/hr patch 72 hour 1 patch transdermal Q3D Rx Instructions: last placed on 03/19/24 Orders to Discharge Patient Discharge Orders: Discharge (Routine); Ordered 05/14/24 Ordered By: Marina Cordoba Follow ups/Referrals Follow ups/Referrals: Shiv Burkett [Primary Care Provider] - (Dr. Burkett to follow up at [facility].)
== END 2024-05-14 11:00 ==
LOC: MED/SURG 10:56 → ER 10:56 → MED/SURG 15:25
PROVIDERS: ADMIT Internal Medicine; ATTEND Internal Medicine
DX: R94.31 Abnormal electrocardiogram [ECG] [EKG]; E16.A3 Hypoglycemia level 3; R41.82 Altered mental status, unspecified; G89.4 Chronic pain syndrome; E78.5 Hyperlipidemia, unspecified; K21.9 Gastro-esophageal reflux disease without esophagitis; F02.80 Dementia in other diseases classified elsewhere, unspecified severity, without behavioral disturbance, psychotic disturbance, mood disturbance, and anxiety; R53.1 Weakness; G30.8 Other Alzheimer's disease; I50.9 Heart failure, unspecified; E86.0 Dehydration; E03.8 Other specified hypothyroidism; I11.0 Hypertensive heart disease with heart failure; Z66 Do not resuscitate; E87.0 Hyperosmolality and hypernatremia

== ENCOUNTER 2024-12-09 18:55 | Observation (INO) ==
--- NOTE | 2024-12-09 19:23 | EKG ---
Test Reason : IRREGULAR HEART RATE Blood Pressure : */* mmHG Vent. Rate : 43 BPM Atrial Rate : 43 BPM P-R Int : 204 ms QRS Dur : 82 ms QT Int : 454 ms P-R-T Axes : 19 0 227 degrees QTc Int : 383 ms Marked sinus bradycardia with marked sinus arrhythmia T wave abnormality, consider inferior ischemia T wave abnormality, consider anterolateral ischemia Abnormal ECG When compared with ECG of 13-MAY-2024 12:01, premature supraventricular complexes are no longer present Questionable change in QRS axis T wave inversion now evident in Anterior leads QT has shortened HR down Confirmed by Trell Escobar MD ([id number]) on 12/10/2024 7:13:08 AM Referred By: Confirmed By: Trell Escobar MD
[2024-12-09 19:31] VITALS: BMI 31.1
[2024-12-09 19:31] LABS: MEAN PLATELET VOLUME 7.9 fL (7.4-11.0); RED CELL DISTRIBUTION WIDTH 14.5 % (11.6-16.5)
[2024-12-09 19:34] LABS: CREATININE 1.11 mg/dL (0.55-1.02); INR 1.05 (0.8-1.3); eGFR NON BLACK RACES 50 (>60)
[2024-12-09] MEDS ORDERED: NS 1,000 ML IV 1,000 ML IV SCH (20:00)
[2024-12-09] MEDS: OMNIPAQUE 350 mg/mL 100 mL BTL IVP NR (20:01)
--- NOTE | 2024-12-09 20:09 | TELESTROKE ---
[facility] Consult Date of Consult Date of Exam: 12/09/24 Time of Arrival to the ED: 18:55 Allergies Allergies Allergy/AdvReac Type Severity Reaction Status Date / Time propoxyphene (From Darvon) Allergy Unknown Verified 12/09/24 20:04 Vital Signs Vital Signs: Temp Pulse Resp BP Pulse Ox O2 Del Method 12/09/24 19:49 60 23 12/09/24 19:16 58 L 29 H 98 12/09/24 19:16 183/86 12/09/24 19:15 53 L 36 H 12/09/24 19:11 44 L 27 H 80 L 12/09/24 19:11 203/86 12/09/24 19:03 53 L 39 H 12/09/24 19:03 214/95 12/09/24 19:02 226/98 12/09/24 19:02 51 L 25 H 12/09/24 19:00 54 L 33 H 84 L 12/09/24 18:57 51 L 26 H 12/09/24 18:57 98 F 45 L 28 H 98 Room Air History of Present Illness History of Present Illness: [facility] Patient Name:TD WILCOX Date of :1940 Identification Number: Date of Service:12/09/2024 19:13:58 Diagnosis:G25.3 - Myoclonus Impression: 84 year old woman presents today after developing whole body jerking during a outpatient D5W infusion followed by unresponsiveness. On examination the patient remained nonverbal throughout the examination with intermittent myoclonic jerking. Stat imaging did not show acute findings. CTA H&N on my read was limited due to motion artifact intracranially but posterior circulation is patent. Differential for symptoms includes myoclonic jerking secondary to metabolic derangement. Presently blood work shows mild changes which aren't felt to explain her presentation. ABG is recommended for further evaluation. Seizure activity is also on the differential but felt to be less likely. Keppra can be used to treat both. Routine EEG would help with further assessment. If keppra is pursued would do a 2g bolus with 500 mg BID maintenance. Our recommendations are outlined below. Recommendations: Neuro Checks (Q4) Sign Out: Discussed with Emergency Department Provider Advanced Imaging: CTA Head and Neck Completed. LVO:No Patient is not a candidate for GEOVANY Metrics: Last Known Well: 12/09/2024 18:30:00 Dispatch Time: 12/09/2024 19:13:58 Arrival Time: 12/09/2024 18:55:00 Initial Response Time: 12/09/2024 19:16:36Symptoms: unresponsive with jerking movements . Initial patient interaction: 12/09/2024 19:19:32 NIHSS Assessment Completed: 12/09/2024 19:25:21Patient is not a candidate for Thrombolytic. Thrombolytic Medical Decision: 12/09/2024 19:25:21Patient was not deemed candidate for Thrombolytic because of following reasons: other diagnosis suspected Myoclonic jerking. CT Head: I personally reviewed all the CT images that were available to me and it showed: no acute changes. Primary Provider Notified of Diagnostic Impression and Management Plan on: 12/09/2024 20:01:18 History of Present Illness:Patient is a 84 year old Female. Patient was brought by EMS for symptoms of unresponsive with jerking movements . 84 year old woman was brought into the ED after developing jerking movements while getting an infusion of D5W. She is being treated for hypernatremia. While getting the infusion she developed whole body jerking movements and then was unresponsive to pain. BP during initial assessment was not able to be obtained but in ED was elevated. She is bradycardic which is a known diagnosis. She remains nonverbal but responsive to painful stimulus. She has intermittent jerking movements during our assessment but remains nonverbal. Past Medical History: Hypertension Coronary Artery Disease Dementia/MCI Other PMH: azheimers, Heart failure, hypernatremia, cardiomegaly, bradycardia, hypothyroidism Medications: No Anticoagulant use No Antiplatelet use Reviewed EMR for current medications Allergies: Reviewed Social History: Smoking: No Family History: There is no family history of premature cerebrovascular disease pertinent to this consultation ROS : 14 Points Review of Systems was performed and was negative except mentioned in HPI. Past Surgical History: There Is No Surgical History Contributory To Todays Visit Examination: BP(172/90),Pulse(45), 1A: Level of Consciousness - Movements to Pain+ 2 1B: Ask Month and Age - Could Not Answer Either Question Correctly+ 2 1C: Blink Eyes & Squeeze Hands - Performs 0 Tasks+ 2 2: Test Horizontal Extraocular Movements - Normal+ 0 3: Test Visual Beyer - No Visual Loss+ 0 4: Test Facial Palsy (Use Grimace if Obtunded) - Normal symmetry+ 0 5A: Test Left Arm Motor Drift - No Effort Against [place]+ 3 5B: Test Right Arm Motor Drift - No Effort Against [place]+ 3 6A: Test Left Leg Motor Drift - No Effort Against [place]+ 3 6B: Test Right Leg Motor Drift - No Effort Against [place]+ 3 7: Test Limb Ataxia (FNF/Heel-Gill) - No Ataxia+ 0 8: Test Sensation - Normal; No sensory loss+ 0 9: Test Language/Aphasia - Mute/Global Aphasia: No Usable Speech/Auditory Comprehension+ 3 10: Test Dysarthria - Mute/Anarthric+ 2 11: Test Extinction/Inattention - No abnormality+ 0 NIHSS Score:23 NIHSS Free Text :One whole body myoclonic jerk witnessed, the patient moves fingers and toes sponatenously, winces to pain, eyes open, R pupil is hazy, L pupil responds to light Pre-Morbid Modified Chester Scale:0 Points = No symptoms at all Spoke with :Dr. Head This consult was conducted in real time using interactive audio and video technology. Patient was informed of the technology being used for this visit and agreed to proceed. Patient located in hospital and provider located at home/office setting. Patient is being evaluated for possible acute neurologic impairment and high probability of imminent or life-threatening deterioration. I spent total of 54 minutes providing care to this patient, including time for face to face visit via telemedicine, review of medical records, imaging studies and discussion of findings with providers, the patient and/or family. Dr Jayy Jane [facility] For Inpatient follow-up with [facility] physician please call [facility] at . As we are not an outpatient service for any post hospital discharge needs please contact the hospital for assistance. If you have any questions for the [facility] physicians or need to reconsult for clinical or diagnostic changes please contact us via [facility] at . Non-radiologist review of imaging performed to assist with emergent clinical decision-making. Remote physician workstations do not possess the same resolution, calibration, or diagnostic capabilities as hospital-based radiology reading stations, and formal radiologist read is necessary. Signature :Jayy Jane Medical Decision Making 12/09/24 19:01 12/09/24 19:01 Labs: Laboratory Results - last 24 hr 12/09/24 12/09/24 19:01 19:15 WBC 5.3 RBC 4.05 Hgb 11.4 L Hct 33.9 L MCV 83.9 MCH 28.3 MCHC 33.7 RDW 14.5 Plt Count 177 MPV 7.9 Neut % (Auto) 57.4 Lymph % (Auto) 19.5 L [place] % (Auto) 17.3 H Eos % (Auto) 2.2 Baso % (Auto) 3.6 H Neut # (Auto) 3.0 Lymph # (Auto) 1.0 L [place] # (Auto) 0.9 H Eos # (Auto) 0.1 Baso # (Auto) 0.2 H Absolute Nucleated RBC 0.1 PT 13.8 INR Target Range - INR 1.05 APTT 44.4 H PTT Comment - Fibrinogen 387 Sodium 144 Corrected Sodium TNP Potassium 4.2 Chloride 107 Carbon Dioxide 32.5 H BUN 21 H Creatinine 1.11 H Est GFR (MDRD) Af Amer > 60 Est GFR (MDRD) Non-Af 50 L Glucose 90 POC Glucose (mg/dL) 93 Lactic Acid 0.6 Calcium 8.4 L Corrected Calcium Cancelled Total Bilirubin Cancelled AST Cancelled ALT Cancelled Alkaline Phosphatase Cancelled Creatine Kinase 31 Troponin I High Sens 18.5 B-Natriuretic Peptide 106 H Total Protein Cancelled Albumin Cancelled Globulin Cancelled Albumin/Globulin Ratio Cancelled Triglycerides Cancelled Cholesterol Cancelled LDL Cholesterol, Calc Cancelled HDL Cholesterol Cancelled Cholesterol/HDL Ratio Cancelled
--- NOTE | 2024-12-09 20:20 | CT ---
EXAM: CT HEAD WITHOUT CONTRAST HISTORY: alf staff reports that patient is "jerking, gasping, eyes are rolling back, unable to obtain blood pressure. AMS; alf staff reports that patient is "jerking, gasping, eyes are rolling back, unable to obtain blood pressure. AMS COMPARISON: CT from May 13, 2024. TECHNIQUE: Axial CT images were obtained through the brain without contrast. Coronal and sagittal reformations were performed. All CT scans at this facility use dose modulation, iterative reconstruction, and/or weight based dosing when appropriate to reduce radiation dose to as low as reasonably achievable. FINDINGS: BRAIN: No evidence for acute bleed. Dao-white matter differentiation is preserved.Redemonstrated is confluent decreased attenuation within the periventricular white matter and the centrum semiovale which is nonspecific but would be consistent with chronic small-vessel ischemic changes. Stable volume loss with stable ventricular dilatation. No shift of midline structures. Basilar cisterns are preserved. No cerebellar tonsillar ectopia. No evidence for acute calvarial findings. MASTOID AIR CELLS: Visualized mastoid air cells are well aerated. PARANASAL SINUSES: Visualized portions of the paranasal sinuses are well aerated. ORBITS: Visualized portions demonstrate no evidence for acute findings. IMPRESSION: No evidence for acute intracranial pathology. Redemonstrated is confluent decreased attenuation within the periventricular white matter and the centrum semiovale which is nonspecific but would be consistent with chronic small-vessel ischemic changes. Stable volume loss with stable ventricular dilatation. If there is clinical concern for acute ischemic event or other intracranial pathology, then consider follow-up MRI brain. THIS IS AN ELECTRONICALLY VERIFIED FINAL REPORT 12/09/2024 8:16 PM - Electronically signed by Favian Cervantes DO
--- NOTE | 2024-12-09 20:36 | CT ---
EXAM: BRAIN CTA HISTORY: AMS COMPARISON: CT head without contrast from December 09, 2024 TECHNIQUE: Axial CT angiography of the head with intravenous contrast. Coronal, sagittal and MIP and/or 3D reconstructed images were created for further characterization by the technologist. Limited by patient motion. Radiation dose: 691.01 mGy-cm total DLP FINDINGS: Anterior Circulation: Right internal carotid artery: No occlusion. Right middle cerebral artery: No occlusion. Right anterior cerebral artery: No occlusion. Left internal carotid artery: No occlusion. Left middle cerebral artery: No occlusion. Left anterior cerebral artery: No occlusion. Posterior Circulation: Right vertebral artery: No occlusion. Left vertebral artery: No occlusion. Basilar artery: No occlusion. Right posterior cerebral artery: No occlusion. Left posterior cerebral artery: No occlusion. Venous: No filling defects in the dural venous sinuses. Brain: No abnormal areas of acute attenuation in the brain parenchyma. Bones/joints: No acute osseous abnormality. Soft tissues: Unremarkable. IMPRESSION: Study is limited by patient motion. No acute intracranial abnormality identified given the limitation. THIS IS AN ELECTRONICALLY VERIFIED FINAL REPORT 12/09/2024 8:33 PM - Electronically signed by Albaro Smyth MD
[2024-12-09 20:37] LABS: ABG BASE EXCESS 5.9 mmol/L (-2.0-2.0); ABG OXYGEN SATURATION 93.0 % (90-100); ABG PCO2 50.0 mmHg (35.0-45.0); ABG PH 7.410 (7.35-7.45); ABG PO2 67.0 mmHg (80.0-100.0)
[2024-12-09 20:38] LABS: ABG ALLEN TEST POS; ABG HCO3 31.7 mmol/L (22-26)
--- NOTE | 2024-12-09 20:42 | CT ---
EXAM: CAROTID CTA HISTORY: AMS; COMPARISON: None. TECHNIQUE: Axial CT angiography of the neck with intravenous contrast. Coronal, sagittal and MIP and/or 3D reconstructed images were created for further characterization by the technologist. Radiation dose: 691.01 mGy-cm total DLP FINDINGS: Right common carotid artery: No clinically significant stenosis, occlusion or dissection. Right internal carotid artery: No clinically significant stenosis of the extracranial segment. No dissection or occlusion. Right external carotid artery: No occlusion or clinically significant stenosis of the origin. Right vertebral artery: No clinically significant stenosis, occlusion or dissection. Left common carotid artery: No clinically significant stenosis, occlusion or dissection.. Left internal carotid artery: No clinically significant stenosis of the extracranial segment. No dissection or occlusion. Left external carotid artery: No occlusion or clinically significant stenosis of the origin. Left vertebral artery: No clinically significant stenosis. No dissection or occlusion. Bones/joints: No acute fracture. Soft tissues: Normal. No significant soft tissue swelling. Lungs: Imaged portion of the lungs are clear of focal airspace disease. IMPRESSION: No acute abnormality, specifically, no clinically significant stenosis, occlusion or dissection involving the arterial structures of the neck. REFERENCES: NASCET CRITERIA: The degree of internal carotid artery stenosis is based on NASCET criteria. Normal is no stenosis. Mild is less than 50% stenosis. Moderate is 50-69% stenosis. Severe is 70% to 99% stenosis. Total occlusion is no detectable patent lumen. THIS IS AN ELECTRONICALLY VERIFIED FINAL REPORT 12/09/2024 8:39 PM - Electronically signed by Albaro Smyth MD
[2024-12-09 21:19] LABS: BLOOD/HEMOGLOBIN,URINE 3+ (NEGATIVE); LEUKOCYTE ESTERASE ,URINE 3+ (NEGATIVE); NITRITES,URINE NEGATIVE (NEGATIVE)
[2024-12-09 21:20] LABS: APPEARANCE,URINE CLEAR (CLEAR)
--- NOTE | 2024-12-09 21:36 | DR.EXTPAIN ---
HPI Time seen Time Seen by Provider: 12/09/24 19:15 PCP Primary Care Physician: Kwadwo Complaint/Symptoms Chief Complaint Doctor Comments: Patient having jerking movements more so on her right side after having infusion due to hypernatremia. As patient was returning to [facility] she started having this symptom and altered mental status. Chief Complaint:: Patient to ER via [facility] with [facility] staff. [facility] staff reports that patient is "jerking, gasping, eyes are rolling back, unable to obtain blood pressure, heart rate=49, o2 sat=93% on room air" Staff reports that patient received a 250ml of D5W over 4 hours today around lunch, which is a standing order for hypernatremia. Self Treatment fo Chief Complaint: None COVID-19 Coronavirus risk:travel/contact w/high risk person: No Has patient experienced Coronavirus symptoms: No Source History Provided: [facility] Mode of arrival Mode of Arrival: Wheelchair Timing Onset of Chief Complaint: 12/09/24 PMH PMH Past Medical History: Yes Past Medical History: Alzheimers, Arthritis, CHF, Dementia, Depression, Dyslipidemia, GERD, Hypertension, Hypothyroidism and Renal Disease Past Surgical History: Yes Surgical History: Cholecystectomy Family History History of Family Medical Conditions: Yes Family Medical History: Diabetes Mellitus, Heart Failure and Hypertension Social History Does any household member use tobacco: No Alcohol Use: None Do you use any recreational Drugs:: No Lives Where: [facility] Travel Risk Coronavirus risk:travel/contact w/high risk person: No Has patient experienced Coronavirus symptoms: No Infectious screening In the last 2 months have you had wt loss of >10#?: NO Have you had fever, night sweats or hemotysis?: No Have you traveled outside the country in the last 6 months?: No Isolation: Standard ROS Review of Systems Unable to Obtain Due To: Altered mental status and Dementia PE Vital Signs Vitals: Vital Signs Temperature 98 F Pulse Rate 46 Pulse Rate 58 Pulse Rate 62 Pulse Rate 67 Pulse Rate 69 Pulse Rate 80 Pulse Rate 54 Pulse Rate 56 Pulse Rate 68 Pulse Rate 60 Pulse Rate 58 Pulse Rate 53 Pulse Rate 44 Pulse Rate 53 Pulse Rate 51 Pulse Rate 54 Pulse Rate 51 Pulse Rate 45 Respiratory Rate 27 Respiratory Rate 33 Respiratory Rate 30 Respiratory Rate 43 Respiratory Rate 40 Respiratory Rate 37 Respiratory Rate 38 Respiratory Rate 29 Respiratory Rate 34 Respiratory Rate 23 Respiratory Rate 29 Respiratory Rate 36 Respiratory Rate 27 Respiratory Rate 39 Respiratory Rate 25 Respiratory Rate 33 Respiratory Rate 26 Respiratory Rate 28 Blood Pressure 177/93 Blood Pressure 184/111 Blood Pressure 173/109 Blood Pressure 186/81 Blood Pressure 208/120 Blood Pressure 183/86 Blood Pressure 203/86 Blood Pressure 214/95 Blood Pressure 226/98 Blood Pressure 203/86 O2 Sat by Pulse Oximetry 100 O2 Sat by Pulse Oximetry 100 O2 Sat by Pulse Oximetry 100 O2 Sat by Pulse Oximetry 99 O2 Sat by Pulse Oximetry 96 O2 Sat by Pulse Oximetry 96 O2 Sat by Pulse Oximetry 78 O2 Sat by Pulse Oximetry 84 O2 Sat by Pulse Oximetry 79 O2 Sat by Pulse Oximetry 98 O2 Sat by Pulse Oximetry 80 O2 Sat by Pulse Oximetry 84 O2 Sat by Pulse Oximetry 98 General Limitations: No Limitations General Appearance: Alert and In No Apparent Distress Head Head Exam: Normal Inspection Eyes Eye exam: Other (Bacterial conjunctivitis right eye) Neck Neck Exam: Normal Inspection Chest Chest Inspection: Normal Inspection Respiratory Respiratory Exam: Normal Lung Sounds Bilat Cardiovascular Cardiovascular Exam: Bradycardia Extremities Extremities Exam: Normal Capillary Refill Neurological Neurological Exam: Other (Altered mental status. Unresponsive to verbal stimulus. Responsive to pain. Difficult to assess due to monoclonal movements.) Psychiatric Psychiatric Exam: Normal Affect and Normal Mood Skin Skin Exam: Warm, Dry, Intact and Normal Color COURSE Treatment Treatment: Patient is currently DNR. Discussed case with teleneuro and stroke not likely. Suspect myoclonus versus seizure although lactic acid normal and CK not highly elevated. On discussion with teleneuro we agree that Keppra would be a good idea. We have had a difficult time getting an accurate blood pressure reading due to myoclonus and her clenching her arm during blood pressure reads. She does have some bradycardia on and off. Fentanyl patch was removed in ER. Heart rate had some improvement after removing fentanyl patch. Consultation Called: 08:47 Consultation Comments: Discussed case with Dr. Rayo and he is agreeable to admission. Critical Care Notes Total Time (mins): 53 Critical Diagnosis: Altered mental status, seizure versus myoclonus Critical Interventions: Time spent examining patient, ordering workup and reviewing results, discussing with teleneurologist, arranging for admission. Ordering treatment. ROR Labs Reviewed Laboratory Results Reviewed?: Yes 12/09/24 19:01 12/09/24 19:01 Laboratory: WBC 5.3 X10^3/uL (3.6-10.0) 12/09/24 19:01 RBC 4.05 X10^6/uL (3.5-5.4) 12/09/24 19:01 Hgb 11.4 g/dL (12.0-16.0) L 12/09/24 19:01 Hct 33.9 % (36.0-47.0) L 12/09/24 19:01 MCV 83.9 fL (80.0-100.0) 12/09/24 19: MCH 28.3 pg (27.0-34.0) 12/09/24 19: MCHC 33.7 g/dL (33.0-35.0) 12/09/24 19: RDW 14.5 % (11.6-16.5) 12/09/24 19: Plt Count 177 X10^3/uL (150.0-450.0) 12/09/24 19:01 MPV 7.9 fL (7.4-11.0) 12/09/24 19:01 Neut % (Auto) 57.4 % (42.0-75.0) 12/09/24 19: Lymph % (Auto) 19.5 % (21.0-51.0) L 12/09/24 19:01 [place] % (Auto) 17.3 % (0.0-13.0) H 12/09/24 19:01 Eos % (Auto) 2.2 % (0.9-2.9) 12/09/24 19:01 Baso % (Auto) 3.6 % (0.2-1.0) H 12/09/24 19:01 Neut # (Auto) 3.0 x10^3/uL (2.2-4.8) 12/09/24 19:01 Lymph # (Auto) 1.0 X10^3/uL (1.3-2.9) L 12/09/24 19:01 [place] # (Auto) 0.9 x10^3/uL (0.3-0.8) H 12/09/24 19:01 Eos # (Auto) 0.1 x10^3/uL (0.0-0.2) 12/09/24 19:01 Baso # (Auto) 0.2 X10^3/uL (0.0-0.1) H 12/09/24 19:01 Absolute Nucleated RBC 0.1 /100WBC 12/09/24 19: PT 13.8 SECONDS (11.8-14.3) 12/09/24 19:01 INR Target Range - 12/09/24 19: INR 1.05 (0.8-1.3) 12/09/24 19:01 APTT 44.4 SECONDS (22.9-36.5) H 12/09/24 19: PTT Comment - 12/09/24 19: Fibrinogen 387 mg/dL (239-489) 12/09/24 19:01 [facility] 12/09/24 20:30 ABG pH 7.410 (7.35-7.45) 12/09/24 20:30 ABG pCO2 50.0 mmHg (35.0-45.0) H 12/09/24 20:30 ABG pO2 67.0 mmHg (80.0-100.0) L 12/09/24 20:30 ABG HCO3 31.7 mmol/L (22-26) H* 12/09/24 20:30 ABG O2 Saturation 93.0 % (90-100) 12/09/24 20:30 ABG Base Excess 5.9 mmol/L (-2.0-2.0) H 12/09/24 20:30 Sonido Test Pos 12/09/24 20:30 A-a Gradient 20.0 mmHg 12/09/24 20:30 FiO2 21.0 12/09/24 20:30 Blood Gas Comments Mele well ah 12/09/24 20:30 Sodium 144 mmol/L (136-145) 12/09/24 19:01 Corrected Sodium TNP 12/09/24 19:01 Potassium 4.2 mmol/L (3.5-5.1) 12/09/24 19:01 Chloride 107 mmol/L (98-107) 12/09/24 19:01 Carbon Dioxide 32.5 mmol/L (21-32) H 12/09/24 19:01 BUN 21 mg/dL (7-18) H 12/09/24 19:01 Creatinine 1.11 mg/dL (0.55-1.02) H 12/09/24 19:01 Est GFR (MDRD) Af Amer > 60 (>60) 12/09/24 19:01 Est GFR (MDRD) Non-Af 50 (>60) L 12/09/24 19:01 Glucose 90 mg/dL (65-99) 12/09/24 19:01 POC Glucose (mg/dL) 93 mg/dL (65-99) 12/09/24 19:15 Lactic Acid 0.6 mmol/L (0.4-2.0) 12/09/24 19:01 Calcium 8.4 mg/dL (8.5-10.1) L 12/09/24 19:01 Corrected Calcium Cancelled 12/09/24 19:01 Total Bilirubin Cancelled 12/09/24 19:01 AST Cancelled 12/09/24 19:01 ALT Cancelled 12/09/24 19:01 Alkaline Phosphatase Cancelled 12/09/24 19:01 Creatine Kinase 31 Units/L (26-192) 12/09/24 19:01 Troponin I High Sens 18.5 ng/L (4.0-60.0) 12/09/24 19:01 B-Natriuretic Peptide 106 pg/mL (0-79) H 12/09/24 19:01 Total Protein Cancelled 12/09/24 19:01 Albumin Cancelled 12/09/24 19:01 Globulin Cancelled 12/09/24 19:01 Albumin/Globulin Ratio Cancelled 12/09/24 19:01 Triglycerides Cancelled 12/09/24 19:01 Cholesterol Cancelled 12/09/24 19:01 LDL Cholesterol, Calc Cancelled 12/09/24 19:01 HDL Cholesterol Cancelled 12/09/24 19:01 Cholesterol/HDL Ratio Cancelled 12/09/24 19:01 Specimen Type Catherized urine 12/09/24 21:02 Urine Color Yellow (YELLOW) 12/09/24 21:02 Urine Appearance Clear (CLEAR) 12/09/24 21:02 Urine pH 6.0 (5.0 - 8.0) 12/09/24 21:02 Ur Specific [place] 1.010 (1.000-1.030) 12/09/24 21:02 Urine Protein 1+ (NEGATIVE) 12/09/24 21:02 Urine Glucose (UA) Negative (NEGATIVE) 12/09/24 21:02 Urine Ketones Negative (NEGATIVE) 12/09/24 21:02 Urine Blood 3+ (NEGATIVE) 12/09/24 21:02 Urine Nitrite Negative (NEGATIVE) 12/09/24 21:02 Urine Bilirubin Negative (NEGATIVE) 12/09/24 21:02 Urine Urobilinogen Normal (NORMAL) 12/09/24 21:02 Ur Leukocyte Esterase 3+ (NEGATIVE) 12/09/24 21:02 Other Results Comments: See imaging reports. Opioid Opioid Risk Tool Age (Sharif box if 16-45): No History of Preadolescent Sexual Abuse: No Total: 0 Total Score Risk Category: Low Risk Copyright: [facility] predicting aberrant behaviors Discharge Plan Diagnosis Discharge Problem: Altered mental status, Myoclonus, Bradycardia, Acute bacterial conjunctivitis of right eye Discharge Plan Patient Disposition: 09 ADMITTED INPATIENT Condition: Stable Prescriptions: No Action multivitamin Tablet 1 tab PO DAILY famotidine [Pepcid] 20 mg Tablet 20 mg PO DAILY triamcinolone acetonide 0.1 % cream 1 applic topical DAILY cholecalciferol (vitamin D3) [Vitamin D3] 125 mcg (5,000 unit) Tablet 125 mcg PO QDAY atorvastatin 10 mg tablet 10 mg PO HS enalapril maleate 20 mg tablet 20 mg PO BID furosemide 20 mg tablet 20 mg PO DAILY docusate sodium [Colace] 100 mg Capsule 100 mg PO BID tramadol 50 mg tablet 50 mg PO TID potassium chloride 20 mEq/15 mL Liquid 10 meq PO DAILY Rx Instructions: GIVE 7.5ML PO ONE TIME A DAY gabapentin 100 mg capsule 100 mg PO TID dextrose 5 % in water (D5W) Parenteral Solution 1,000 ml IV .MON Rx Instructions: ADMINISTER 1 LITER ON MONDAY. Infuse at 250ml/hr x's 1 liter if sodium is greater than 145 emollient Cream 1 applic TOPICAL DAILY fentanyl 50 mcg/hr patch 72 hour 1 patch transdermal Q3D Rx Instructions: last placed on 03/19/24 levothyroxine 88 mcg tablet 88 mcg PO QDAY Health Concerns: Post Hospitalization: new medications and changes needed to prevent readmission or further decline. Pt educated and given instructions on all concerns. Plan of Treatment: Continue with present treatment and follow up plan. Pt is to keep follow up appointment as instructed and take medications as ordered. Orders to Discharge Patient Discharge Orders: Transfer (Routine); Ordered 12/09/24 Ordered By: Seymour Beavers Follow ups/Referrals Follow ups/Referrals: [facility],None [Primary Care Provider] - 3 days Instructions Stand Alone Forms: Find Help Web Site, Post Hospital Follow Up Care Print Language: WOLOF
[2024-12-09 21:37] LABS: SQUAMOUS EPITHELIAL CELL,UR FEW /HPF (NEGATIVE)
--- NOTE | 2024-12-09 21:46 | RAD ---
EXAM: CHEST, 1 VIEW HISTORY: AMS; care home staff reports that patient is "jerking, gasping, eyes are rolling back, unable to obtain blood pressure. AMS COMPARISON: April 07, 2024 TECHNIQUE: Chest radiographic imaging, AP portable projection, 1 image FINDINGS: Mild cardiomegaly. Left chest port in place. No focal airspace disease. No pleural effusion. No pneumothorax. No acute osseous abnormality. IMPRESSION: No imaging findings of acute cardiopulmonary disease or significant changes. THIS IS AN ELECTRONICALLY VERIFIED FINAL REPORT 12/09/2024 9:42 PM - Electronically signed by Albaro Smyth MD
[2024-12-09] MEDS: APRESOLINE INJ 20 MG VIAL IVP ONE (22:09)
[2024-12-09] MEDS: KEPPRA IV ONE (22:10)
[2024-12-09] MEDS: NS IV ONE (22:10)
[2024-12-09] MEDS ORDERED: APRESOLINE INJ 20 MG VIAL IVP PRN (22:50)
[2024-12-09] MEDS ORDERED: MORPHINE SULFATE INJ 2 MG INJ IVP PRN (22:50)
[2024-12-09] MEDS ORDERED: NORCO 5/325 MG TAB PO PRN (22:50)
[2024-12-09] MEDS ORDERED: ULTRAM PO PRN (22:50)
[2024-12-09] MEDS ORDERED: TYLENOL 325 MG TAB PO PRN (22:50)
[2024-12-09] MEDS ORDERED: NovoLIN R (or HumuLIN R) SUBCUT PRN (22:50)
[2024-12-09] MEDS ORDERED: ZOFRAN INJ 4 MG VIAL IVP PRN (22:50)
[2024-12-09] MEDS ORDERED: CONSULT PHARMACY - POTASSIUM & MAGNESIUM XX SCH (22:50)
[2024-12-09] MEDS: NS 1,000 ML IV 1,000 ML IV SCH (23:16)
[2024-12-09] MEDS: ILOTYCIN OPHTH OINT EACHEYE SCH (23:16)
[2024-12-10] MEDS: NEURONTIN CAP 100 MG PO SCH (00:10)
[2024-12-10] MEDS: KEPPRA TAB 500 MG PO SCH (00:11)
[2024-12-10] MEDS: VASOTEC TAB 20 MG PO SCH (00:11)
[2024-12-10 05:01] LABS: MEAN PLATELET VOLUME 8.1 fL (7.4-11.0); RED CELL DISTRIBUTION WIDTH 14.6 % (11.6-16.5)
[2024-12-10 05:07] LABS: CREATININE 0.95 mg/dL (0.55-1.02); eGFR NON BLACK RACES 60 (>60)
[2024-12-10] MEDS: OMNIPAQUE 350 mg/mL 100 mL BTL 100 ML ONE (07:20)
[2024-12-10] MEDS: NS 500 ML IV 500 ML IV ONE (07:20)
[2024-12-10] MEDS: NS 250 ML IV 250 ML IV ONE (07:20)
[2024-12-10] MEDS: APRESOLINE INJ 20 MG VIAL ONE (07:21)
[2024-12-10] MEDS: LASIX PO SCH (09:28)
[2024-12-10] MEDS: CIPRO IV 400 MG PREMIX* 400 MG/200 ML IV.SOLN. IV SCH (09:28)
[2024-12-10] MEDS: LOVENOX INJ 40 MG SYR SC SCH (09:28)
[2024-12-10] MEDS: PEPCID TAB 20 MG PO SCH (09:29)
--- NOTE | 2024-12-10 09:29 | DR.H&P ---
H&P History & Physical for Day of: H&P Date: 12/10/24 Chief Complaint Chief Complaint: AMS, jerking movement History of Present Illness History of Present Illness: Ms. Jules is a 84-year-old female who is a resident of [facility] with a past medical history of dementia, CHF, hypertension, hyperlipidemia, CKD presented to the ER after having outpatient D5 infusion for hypernatremia. Patient gets outpatient fluids routinely. After the infusion when she was being taken back to the shelter, she was noted to be confused, eyes rolling and having jerking movements. She was also noted to have stiffness in her extremities. Patient was taken to the ER for further evaluation. Imaging included CT brain, CTA head and neck which did not show any acute changes. Teleneuro consult was done and recommended admission for observation as well as starting Keppra for possible seizure. She was also noted to have bradycardia, fentanyl patch was removed. Heart rate has been in the 60s. Patient is resting in bed, no jerking movements observed. Labs/imaging reviewed: - WBC 4.4 hemoglobin 10.9 potassium 4.1 sodium 145 creatinine 0.95 lactic acid 0.6 glucose 80 - UA suggestive of infection, urine culture pending - Imaging reviewed Plan: Admit to [facility], continue neurochecks. Patient is currently n.p.o., consult speech. Add ciprofloxacin, follow urine culture. Resume home medications as appropriate. Monitor electrolytes, replace as needed. Continue Keppra. Monitor a.m. labs and imaging. Time spent for clinical assessment, reviewing labs/imaging, physical exam, decision making and documentation greater than 45 mins. Past Medical History Past Medical History: Alzheimers, Arthritis, CHF, Dementia, Depression, Dyslipidemia, GERD, Hypertension, Hypothyroidism and Renal Disease Past Surgical History Surgical History: Cholecystectomy and Ortho Surgery Additional Surgical History: PEG TUBE Family History Family Medical History: Diabetes Mellitus, Heart Failure and Hypertension Social History Does patient currently use any type of tobacco product: No Type of Tobacco Use: None Does any household member use tobacco: No Alcohol Use: None Drug Use: None Medications Home Medications: Home Medications Medication Instructions Recorded Confirmed Type atorvastatin 10 mg tablet 10 mg PO HS 12/16/18 5 History docusate sodium 100 mg capsule 100 mg PO BID 12/16/18 12/10/24 History (Colace) enalapril maleate 20 mg tablet 20 mg PO BID 12/16/18 1 02/10/24 History furosemide 20 mg tablet 20 mg PO DAILY 12/16/1805/31 History famotidine 20 mg tablet (Pepcid) 20 mg PO DAILY 12/10/24 History multivitamin 1 tab PO DAILY 07/08/2005/31 History gabapentin 100 mg capsule 100 mg PO TID 03/30/2112/10 History potassium chloride 20 mEq/15 mL 10 meq PO DAILY 12/10/24 History oral liquid tramadol 50 mg tablet 50 mg PO TID 03/30/21 History dextrose 5 % in water (D5W) 1,000 ml IV .MON 06/08/21 12/10/24 History emollient 1 applic topical DAILY for d ry skin 06/01/22 12/10/24 History fentanyl 50 mcg/hr transdermal 1 patch transdermal Q3D 07/03/23 12/10/24 History patch cholecalciferol (vitamin D3) 125 125 mcg PO QDAY 03/2112/10/24 History mcg (5,000 unit) tablet (Vitamin D3) triamcinolone acetonide 0.1 % 1 applic topical DAILY 0 03/21/24 12/10/24 History topical cream levothyroxine 88 mcg tablet 88 mcg PO QDAY 12/09/24 History miscellaneous creams 12/09/24 12/10/24 History Allergies Allergies Allergy/AdvReac Type Severity Reaction Status Date / Time propoxyphene (From Darvon) Allergy Unknown Verified 12/09/24 20:04 Labs 12/10/24 04:16 12/10/24 04:16 Labs: Laboratory WBC 4.4 X10^3/uL (3.6-10.0) 12/10/24 04:16 RBC 3.84 X10^6/uL (3.5-5.4) 12/10/24 04:16 Hgb 10.9 g/dL (12.0-16.0) L 12/10/24 04:16 Hct 32.1 % (36.0-47.0) L 12/10/24 04:16 MCV 83.7 fL (80.0-100.0) 12/10/24 04:16 MCH 28.5 pg (27.0-34.0) 12/10/24 04:16 MCHC 34.1 g/dL (33.0-35.0) 12/10/24 04:16 RDW 14.6 % (11.6-16.5) 12/10/24 04:16 Plt Count 178 X10^3/uL (150.0-450.0) 12/10/24 04:16 MPV 8.1 fL (7.4-11.0) 12/10/24 04:16 Neut % (Auto) 58.6 % (42.0-75.0) 12/10/24 04:16 Lymph % (Auto) 22.9 % (21.0-51.0) 12/10/24 04:16 [place] % (Auto) 15.6 % (0.0-13.0) H 12/10/24 04:16 Eos % (Auto) 2.4 % (0.9-2.9) 12/10/24 04:16 Baso % (Auto) 0.5 % (0.2-1.0) 12/10/24 04:16 Neut # (Auto) 2.6 x10^3/uL (2.2-4.8) 12/10/24 04:16 Lymph # (Auto) 1.0 X10^3/uL (1.3-2.9) L 12/10/24 04:16 [place] # (Auto) 0.7 x10^3/uL (0.3-0.8) 12/10/24 04:16 Eos # (Auto) 0.1 x10^3/uL (0.0-0.2) 12/10/24 04:16 Baso # (Auto) 0.0 X10^3/uL (0.0-0.1) 12/10/24 04:16 Absolute Nucleated RBC 0.1 /100WBC 12/10/24 04:16 PT 13.8 SECONDS (11.8-14.3) 12/09/24 19:01 INR Target Range - 12/09/24 19:01 INR 1.05 (0.8-1.3) 12/09/24 19:01 APTT 44.4 SECONDS (22.9-36.5) H 12/09/24 19:01 PTT Comment - 12/09/24 19:01 Fibrinogen 387 mg/dL (239-489) 12/09/24 19:01 [facility] 12/09/24 20:30 ABG pH 7.410 (7.35-7.45) 12/09/24 20:30 ABG pCO2 50.0 mmHg (35.0-45.0) H 12/09/24 20:30 ABG pO2 67.0 mmHg (80.0-100.0) L 12/09/24 20:30 ABG HCO3 31.7 mmol/L (22-26) H* 12/09/24 20:30 ABG O2 Saturation 93.0 % (90-100) 12/09/24 20:30 ABG Base Excess 5.9 mmol/L (-2.0-2.0) H 12/09/24 20:30 Sonido Test Pos 12/09/24 20:30 A-a Gradient 20.0 mmHg 12/09/24 20:30 FiO2 21.0 12/09/24 20:30 Blood Gas Comments Mele well ah 12/09/24 20:30 Sodium 145 mmol/L (136-145) 12/10/24 04:16 Corrected Sodium TNP 12/10/24 04:16 Potassium 4.1 mmol/L (3.5-5.1) 12/10/24 04:16 Chloride 107 mmol/L (98-107) 12/10/24 04:16 Carbon Dioxide 34.5 mmol/L (21-32) H 12/10/24 04:16 BUN 17 mg/dL (7-18) 12/10/24 04:16 Creatinine 0.95 mg/dL (0.55-1.02) 12/10/24 04:16 Est GFR (MDRD) Af Amer > 60 (>60) 12/10/24 04:16 Est GFR (MDRD) Non-Af 60 (>60) 12/10/24 04:16 Glucose 88 mg/dL (65-99) 12/10/24 04:16 POC Glucose (mg/dL) 80 mg/dL (65-99) 12/10/24 05:05 Lactic Acid 0.6 mmol/L (0.4-2.0) 12/09/24 19:01 Calcium 8.6 mg/dL (8.5-10.1) 12/10/24 04:16 Corrected Calcium Cancelled 12/09/24 19:01 Total Bilirubin Cancelled 12/09/24 19:01 AST Cancelled 12/09/24 19:01 ALT Cancelled 12/09/24 19:01 Alkaline Phosphatase Cancelled 12/09/24 19:01 Creatine Kinase 31 Units/L (26-192) 12/09/24 19:01 Troponin I High Sens 18.5 ng/L (4.0-60.0) 12/09/24 19:01 B-Natriuretic Peptide 106 pg/mL (0-79) H 12/09/24 19:01 Total Protein Cancelled 12/09/24 19:01 Albumin Cancelled 12/09/24 19:01 Globulin Cancelled 12/09/24 19:01 Albumin/Globulin Ratio Cancelled 12/09/24 19:01 Triglycerides Cancelled 12/09/24 19:01 Cholesterol Cancelled 12/09/24 19:01 LDL Cholesterol, Calc Cancelled 12/09/24 19:01 HDL Cholesterol Cancelled 12/09/24 19:01 Cholesterol/HDL Ratio Cancelled 12/09/24 19:01 Specimen Type Catherized urine 12/09/24 21:02 Urine Color Yellow (YELLOW) 12/09/24 21: Urine Appearance Clear (CLEAR) 12/09/24 21:02 Urine pH 6.0 (5.0 - 8.0) 12/09/24 21:02 Ur Specific [place] 1.010 (1.000-1.030) 12/09/24 21:02 Urine Protein 1+ (NEGATIVE) 12/09/24 21: Urine Glucose (UA) Negative (NEGATIVE) 12/09/24 21: Urine Ketones Negative (NEGATIVE) 12/09/24 21: Urine Blood 3+ (NEGATIVE) 12/09/24 21: Urine Nitrite Negative (NEGATIVE) 12/09/24 21: Urine Bilirubin Negative (NEGATIVE) 12/09/24 21: Urine Urobilinogen Normal (NORMAL) 12/09/24 21:02 Ur Leukocyte Esterase 3+ (NEGATIVE) 12/09/24 21:02 Urine RBC 10-20 /HPF (0-3) A 12/09/24 21:02 Urine WBC 10-20 /HPF (0-5) A 12/09/24 21:02 Ur Squamous Epith Cells Few /HPF (NEGATIVE) 12/09/24 21:02 Ur Renal Epithelial Cell Few /HPF (NEGATIVE) 12/09/24 21:02 Urine Bacteria Negative /HPF (NEGATIVE) 12/09/24 21:02 Ur Culture Indicated? Yes/culture set up 12/09/24 21:02 Review of Systems Constitutional: No Symptoms Reported Eyes: No Symptoms Reported ENT: No Symptoms Reported Respiratory: No Symptoms Reported Cardiovascular: No Symptoms Reported Gastrointestinal: No Symptoms Reported Genitourinary: No Symptoms Reported Musculoskeletal: No Symptoms Reported Skin: No Symptoms Reported Neurological: Confusion and Seizures Physical Exam Vital Signs: Vital Signs Temperature 97.6 F Temperature 97.9 F Pulse Rate [Left] 63 Pulse Rate [Left] 61 Respiratory Rate 22 Respiratory Rate 21 Blood Pressure [Left Arm] 141/96 Blood Pressure [Left Arm] 143/67 O2 Sat by Pulse Oximetry 100 O2 Sat by Pulse Oximetry 100 Oriented: Unable to test Respiratory: Diminished Throughout Cardiovascular: Normal Auscultation: Bowel Sounds: Normal Palpation: Normal Tenderness: Normal Skin: Normal Musculoskeletal: Normal Mood Description: Calm Speech Pattern: Clear and Appropriate Assessment/Plan (1) Altered mental status: Qualifiers: Altered mental status type: unspecified Qualified Code(s): R41.82 - Altered mental status, unspecified Status: Acute (2) Seizure-like activity: Status: Acute (3) Bradycardia: Status: Acute (4) UTI (urinary tract infection): Qualifiers: Urinary tract infection type: acute cystitis Hematuria presence: with hematuria Qualified Code(s): N30.01 - Acute cystitis with hematuria Status: Acute (5) Hypertension: Qualifiers: Hypertension type: primary hypertension Qualified Code(s): I10 - Essential (primary) hypertension Status: Chronic (6) Dementia: Qualifiers: Dementia behavioral disturbance: without behavioral disturbance D ementia type: unspecified type Qualified Code(s): F03.90 - Unspecified dementia without behavioral disturbance Status: Chronic Review H&P Reviewed: Yes Patient was examined?: Yes
[2024-12-10 18:13] LABS: COR CA(FOR HYPOALB) 9.6 mg/dL (8.5-10.1)
[2024-12-10] MEDS: SNACK - Diabetic Appropriate PO SCH (20:00)
[2024-12-11 05:54] LABS: MEAN PLATELET VOLUME 7.9 fL (7.4-11.0); RED CELL DISTRIBUTION WIDTH 14.4 % (11.6-16.5)
[2024-12-11 07:42] VITALS: BP 149/77; PULSE 71; RESP 18; TEMP 98.4; O2SAT 99
[2024-12-11] MEDS ORDERED: AQUAPHOR TOP SCH (12:00)
== END 2024-12-11 11:30 ==
LOC: ER 18:55 → MED/SURG 18:55
PROVIDERS: ADMIT Family Medicine; ATTEND Internal Medicine
DX: E03.8 Other specified hypothyroidism; D64.89 Other specified anemias; E78.5 Hyperlipidemia, unspecified; G25.3 Myoclonus; R94.4 Abnormal results of kidney function studies; R79.1 Abnormal coagulation profile; N30.01 Acute cystitis with hematuria; E87.0 Hyperosmolality and hypernatremia; N18.9 Chronic kidney disease, unspecified; E83.51 Hypocalcemia; R94.31 Abnormal electrocardiogram [ECG] [EKG]; R00.1 Bradycardia, unspecified; G30.8 Other Alzheimer's disease; I50.9 Heart failure, unspecified; R79.89 Other specified abnormal findings of blood chemistry; R56.9 Unspecified convulsions; R41.82 Altered mental status, unspecified; I13.0 Hypertensive heart and chronic kidney disease with heart failure and stage 1 through stage 4 chronic kidney disease, or unspecified chronic kidney disease; F02.80 Dementia in other diseases classified elsewhere, unspecified severity, without behavioral disturbance, psychotic disturbance, mood disturbance, and anxiety; H10.31 Unspecified acute conjunctivitis, right eye; K21.9 Gastro-esophageal reflux disease without esophagitis; Z66 Do not resuscitate; I25.10 Atherosclerotic heart disease of native coronary artery without angina pectoris